=== PATIENT | female | born 1950 | race Caucasian/White ===

== ENCOUNTER 2018-06-09 01:47 | Emergency (ER) | payer BC ==
[2018-06-09 01:56] VITALS: BP 109/77; PULSE 67; O2SAT 96
--- NOTE | 2018-06-09 02:10 | ERPHSYRPT ---
- History of Present Illness Time Seen by Provider: 06/09/18 02:06 Source: patient, police Exam Limitations: no limitations, intoxication Patient Subjective Stated Complaint: pt is alert and oriented. pt is ambulatory with a steady gait. pt comes in with police officers for after being intoxicated. pt states she's being drinking wine tonight. pt has prior lab earlier tonight of 247. pt is speaking clearly. no apparent distress. Triage Nursing Assessment: see above Physician History: 67 y/o myriam female intoxicated appearance here for medical clearance for care home. pt has no complaints Timing/Duration: today Severity: mild Associated Symptoms: denies symptoms Allergies/Adverse Reactions: No Known Drug Allergies Allergy (Unverified 06/09/18 01:56) Home Medications: Alendronate Sodium 70 mg PO DAILY 06/09/18 [History] Amlodipine Besylate 5 mg PO DAILY 06/09/18 [History] Calcium [Hi-Jonny] 600 mg PO DAILY 06/09/18 [History] Levothyroxine Sodium [Synthroid] 25 mcg PO DAILY 06/09/18 [History] Metoprolol Tartrate 50 mg PO DAILY 06/09/18 [History] Naproxen 500 mg PO BID 06/09/18 [History] Omeprazole 20 mg PO DAILY 06/09/18 [History] Immunizations Up to Date: Yes - Review of Systems Constitutional: No Symptoms Eyes: No Symptoms Ears, Nose, & Throat: No Symptoms Respiratory: No Symptoms Cardiac: No Symptoms Abdominal/Gastrointestinal: No Symptoms Genitourinary Symptoms: No Symptoms Musculoskeletal: No Symptoms Skin: No Symptoms Neurological: No Symptoms Psychological: No Symptoms Endocrine: No Symptoms Hematologic/Lymphatic: No Symptoms Immunological/Allergic: No Symptoms All Other Systems: Reviewed and Negative - Past Medical History Pertinent Past Medical History: Yes Neurological History: No Pertinent History ENT History: No Pertinent History Cardiac History: Myocardial Infarction ([place]) Respiratory History: No Pertinent History Endocrine Medical History: No Pertinent History Musculoskeletal History: No Pertinent History GI Medical History: No Pertinent History History: No Pertinent History Psycho-Social History: No Pertinent History Female Reproductive Disorders: No Pertinent History - Past Surgical History Past Surgical History: Yes Neuro Surgical History: No Pertinent History Cardiac: Cardiac Catheterization Respiratory: No Pertinent History Gastrointestinal: Appendectomy, Cholecystectomy Genitourinary: No Pertinent History Musculoskeletal: No Pertinent History Female Surgical History: Hysterectomy Other Surgical History: GIFT - Social History Smoking Status: Current every day smoker How long have you smoked: 40 years Drug Use: none - Female History Hx Now: No - Nursing Vital Signs Nursing Vital Signs: Initial Vital Signs Pulse Rate 67 06/09/18 01:49 Respiratory Rate 18 06/09/18 01:49 Blood Pressure 109/77 06/09/18 01:49 O2 Sat by Pulse Oximetry 96 06/09/18 01:49 Pain Scale Pain Intensity 0 - Physical Exam General Appearance: no apparent distress, alert, other (smells of etoh) Eye Exam: PERRL/EOMI, eyes nml inspection Ears, Nose, Throat Exam: normal ENT inspection, moist mucous membranes Neck Exam: normal inspection, non-tender, supple, full range of motion Respiratory Exam: normal breath sounds, lungs clear, airway intact, No chest tenderness, No respiratory distress Cardiovascular Exam: regular rate/rhythm, normal heart sounds, normal peripheral pulses Gastrointestinal/Abdomen Exam: soft, normal bowel sounds, No tenderness, No guarding, No rebound Pelvic Exam: not done Rectal Exam: not done Back Exam: normal inspection, normal range of motion, No CVA tenderness, No vertebral tenderness Extremity Exam: normal inspection, normal range of motion, pelvis stable Neurologic Exam: alert, oriented x 3, cooperative, on air announcer II-XII nml as tested, intoxicated appearance Skin Exam: normal color, warm, dry Lymphatic Exam: No adenopathy SpO2 Interpretation: normal SpO2: 96 O2 Delivery: Room Air - Progress Progress: unchanged Counseled pt/family regarding: diagnosis - Departure Departure Disposition: Home Clinical Impression: Medical clearance for incarceration Condition: Stable Critical Care Time: No
== END 2018-06-09 02:20 | disposition home or self-care (01) ==
LOC: ED 01:47
DX: Z02.89 Encounter for other administrative examinations (principal); F10.129 Alcohol abuse with intoxication, unspecified
CPT/HCPCS: 36415; 80307; 99283; G0480

== ENCOUNTER 2022-01-03 07:26 | Day surgery (SDC) | payer MEDICARE, OTHER ==
[2022-01-03] MEDS ORDERED: Epinephrine Preservative Free 1 MG/ML IJ ONE (07:27)
[2022-01-03] MEDS ORDERED: BETADINE 5% OPHTHALMIC 30 ML OP ONE (07:30)
[2022-01-03] MEDS ORDERED: cefUROXime sodium 0.005 GM in Sodium Chloride Flush 30 ML*** 0.5 ML IJ ONE (07:30)
[2022-01-03] MEDS ORDERED: Ak-Dilate OPHTHALMIC*** 1.065 ML, Cyclogyl 1% OPHTH SOL 1.065 ML, GATIFLOXACIN 0.5% OPH... OP ONE ×4 (07:30)
[2022-01-03] MEDS ORDERED: TETRACAINE 0.5% STERI-UNIT SOL OP ONE ×2 (07:30)
[2022-01-03] MEDS ORDERED: NON-FORMULARY ITEM OP ONE (07:30)
[2022-01-03] MEDS ORDERED: Lactated Ringers 1,000 ML IV SCH (07:30)
[2022-01-03] MEDS ORDERED: Lactated Ringers 1,000 ML IV ONE (08:04)
[2022-01-03] MEDS ORDERED: DIPRIVAN 200 MG/20 ML IV ONE (09:12)
[2022-01-03] MEDS ORDERED: Zofran 4 MG/2 ML VIAL IV PRN (09:30)
[2022-01-03] MEDS ORDERED: ACETAZOLAMIDE 250 MG TABLET PO ONE (09:30)
[2022-01-03 09:56] VITALS: BP 98/63; PULSE 60; O2SAT 92
== END 2022-01-03 10:05 | disposition home or self-care (01) ==
LOC: SDC 07:26
PROVIDERS: ATTEND Ophthalmology
DX: H25.812 Combined forms of age-related cataract, left eye (principal)
CPT/HCPCS: C1780; J0171; J2704; A9270-GY

== ENCOUNTER 2022-02-07 06:02 | Day surgery (SDC) | payer MEDICARE, OTHER ==
[2022-02-07] MEDS ORDERED: DUONEB 0.5-3 MG/3 ml Neb IH ONE ×2 (06:03→08:58)
[2022-02-07] MEDS ORDERED: Lactated Ringers 1,000 ML IV ONE (06:14)
[2022-02-07] MEDS ORDERED: BETADINE 5% OPHTHALMIC 30 ML OP ONE (07:00)
[2022-02-07] MEDS ORDERED: NON-FORMULARY ITEM OP ONE (07:00)
[2022-02-07] MEDS ORDERED: TETRACAINE 0.5% STERI-UNIT SOL OP ONE ×2 (07:00)
[2022-02-07] MEDS ORDERED: cefUROXime sodium 0.005 GM in Sodium Chloride Flush 30 ML*** 0.5 ML IJ ONE (07:00)
[2022-02-07] MEDS ORDERED: Ak-Dilate OPHTHALMIC*** 1.065 ML, Cyclogyl 1% OPHTH SOL 1.065 ML, GATIFLOXACIN 0.5% OPH... OP ONE ×4 (07:00)
[2022-02-07] MEDS ORDERED: Lactated Ringers 1,000 ML IV SCH (07:00)
[2022-02-07] MEDS ORDERED: DIPRIVAN 200 MG/20 ML IV ONE (07:54)
[2022-02-07] MEDS ORDERED: Versed 2 MG/2 ML Injection ONE (07:54)
[2022-02-07] MEDS ORDERED: SUBLIMAZE 100 MCG/2 ML ONE (07:54)
[2022-02-07] MEDS ORDERED: Xylocaine-Mpf 2% 5 Ml Vial ONE (07:54)
[2022-02-07] MEDS ORDERED: Zofran 4 MG/2 ML VIAL IV PRN (09:00)
[2022-02-07] MEDS ORDERED: ACETAZOLAMIDE 250 MG TABLET PO ONE (09:00)
[2022-02-07 09:23] VITALS: O2SAT 96
[2022-02-07 09:25] VITALS: BP 128/73; PULSE 58
[2022-02-07] MEDS ORDERED: Epinephrine Preservative Free 1 MG/ML ONE (14:36)
== END 2022-02-07 09:25 | disposition home or self-care (01) ==
LOC: SDC 06:02
PROVIDERS: ATTEND Ophthalmology
DX: H25.811 Combined forms of age-related cataract, right eye (principal)
CPT/HCPCS: 94640; C1780; J0171; J2250; J2704; J3010; A9270-GY

== ENCOUNTER 2022-05-22 16:16 | Emergency (ER) | payer MEDICARE, OTHER ==
[2022-05-22] MEDS ORDERED: PROVENTIL 2.5 MG/3 ML NEB IH ONE ×2 (16:31→16:45)
[2022-05-22] MEDS ORDERED: solu-MEDROL 125 MG, Sterile H2O 10 ml 2 ML IV ONE ×2 (17:06)
--- NOTE | 2022-05-22 17:06 | ERPHSYRPT ---
- History of Present Illness Time Seen by Provider: 05/22/22 16:55 Source: patient Exam Limitations: no limitations Physician History: This is a 71-year-old white female patient who has a history of COPD, hypertension, hyperlipidemia who was seen at the outpatient clinic but referred back to us because of the patient's shortness of breath and history of chest pain earlier today. Patient denies chest pain at the time of this examination. Patient does have wheezing upon entrance into the emergency department. She does have a cough but she chronically has a cough. She denies fever. She has not had any vomiting or diarrhea. She has no abdominal pain Timing/Duration: today Severity of Dyspnea-Max: moderate Severity of Dyspnea-Current: moderate Possible Cause: occasional episodes, chronic episodes Modifying Factors: Improves With: activity, coughing Associated Symptoms: cough, chest pain/discomfort (None now but there was chest pain earlier today), wheezing Allergies/Adverse Reactions: cat dander Allergy (Severe, Verified 05/22/22 17:09) Shortness of Breath perfume Adverse Reaction (Intermediate, Verified 05/22/22 17:09) Shortness of Breath Home Medications: Alendronate Sodium 70 mg PO DAILY 06/09/18 [History] Amlodipine Besylate 5 mg PO DAILY 06/09/18 [History] Naproxen 500 mg PO BID 06/09/18 [History] Aspirin EC 81 mg [Ecotrin 81 mg] 81 mg PO DAILY 12/27/21 [History] Atorvastatin Calcium [Lipitor] 10 mg PO DAILY 12/27/21 [History] Famotidine 20 mg [Pepcid 20 MG] 20 mg PO DAILY 12/27/21 [History] Niacin 500 mg PO DAILY 12/27/21 [History] Metoprolol Tartrate 50 mg [Lopressor 50 MG] 50 mg PO BID 01/03/22 [History] Albuterol Sulfate [Proair Respiclick] 90 mcg IH Q4HPRN PRN 01/25/22 [History] Travel Risk - International Travel Have you traveled outside of the country in past 3 weeks: No - Coronavirus Screening Are you exhibiting any of the following symptoms?: Yes Symptoms: Cough: New Onset, Shortness of Breath Close contact with a COVID-19 positive Pt in past 14-21 Days: No - Review of Systems Constitutional: No Symptoms Eyes: No Symptoms Ears, Nose, & Throat: No Symptoms Respiratory: Cough, Dyspnea on Exertion (ARENAS), Wheezing Cardiac: Chest Pain (Earlier today) Abdominal/Gastrointestinal: No Symptoms (. None in the emergency department at this time) Genitourinary Symptoms: No Symptoms Musculoskeletal: No Symptoms Skin: No Symptoms Neurological: No Symptoms Psychological: No Symptoms Endocrine: No Symptoms Hematologic/Lymphatic: No Symptoms Immunological/Allergic: No Symptoms All Other Systems: Reviewed and Negative - Past Medical History Pertinent Past Medical History: Yes Neurological History: No Pertinent History ENT History: No Pertinent History Cardiac History: Arrhythmia, Hypertension Respiratory History: COPD Endocrine Medical History: No Pertinent History Musculoskeletal History: No Pertinent History GI Medical History: No Pertinent History History: No Pertinent History Psycho-Social History: No Pertinent History Female Reproductive Disorders: No Pertinent History - Past Surgical History Past Surgical History: Yes Neuro Surgical History: No Pertinent History Cardiac: Cardiac Catheterization Respiratory: No Pertinent History Gastrointestinal: Appendectomy, Cholecystectomy Genitourinary: No Pertinent History Musculoskeletal: No Pertinent History Female Surgical History: Hysterectomy Other Surgical History: release of 1st dorsal compartment, 3 laproscopy female. - Social History Smoking Status: Current every day smoker How long have you smoked: 50 years Exposure to second hand smoke: Yes Drug Use: none - Nursing Vital Signs Nursing Vital Signs: Initial Vital Signs Pulse Rate 88 05/22/22 16:46 Respiratory Rate 22 05/22/22 16:46 O2 Sat by Pulse Oximetry 99 05/22/22 16:46 Pain Scale Pain Intensity 0 - Physical Exam General Appearance: no apparent distress, alert, anxiety, thin Eye Exam: PERRL/EOMI, eyes nml inspection Ears, Nose, Throat Exam: hearing grossly normal, normal ENT inspection, normal pharynx Neck Exam: normal inspection, non-tender, supple, full range of motion Respiratory Exam: respiratory distress (Mild), airway intact, wheezing (Mild bilateral diffuse wheezing), No chest tenderness Cardiovascular/Chest Exam: normal heart sounds, regular rate/rhythm, normal peripheral pulses Abdominal/Gastrointestinal Exam: soft, normal bowel sounds, No tenderness Rectal Exam: not done Extremity Exam: non-tender, normal range of motion, normal inspection Neurologic Exam: alert, oriented x 3, cooperative, assistant county attorney II-XII nml as tested, normal mood/affect, nml cerebellar function, nml station & gait, sensation nml Skin Exam: normal color, warm, dry Lymphatic Exam: No adenopathy SpO2 Interpretation: normal SpO2: 95 O2 Delivery: Nasal Cannula - Course Nursing assessment & vital signs reviewed: Yes Ordered Tests: Active Orders 24 hr Category Date Time Status EKG-ER Only STAT Care 05/22/22 17:06 Active IV Insertion STAT Care 05/22/22 17:06 Active Pulse Oximetry (ED) STAT Care 05/22/22 17:06 Active CHEST 1 VIEW (PORTABLE) Stat Exams 05/22/22 17:06 Taken BLOOD CULTURE Stat Lab 05/22/22 16:45 Ordered CBC W DIFF Stat Lab 05/22/22 16:45 Completed CMP Stat Lab 05/22/22 17:25 Completed NT PRO BNPII Stat Lab 05/22/22 16:45 Completed TROPONIN Q4H Lab 05/22/22 16:45 Completed TROPONIN Q4H Lab 05/22/22 21:15 Ordered TROPONIN Q4H Lab 05/23/22 01:15 Ordered Respiratory Therapy Assessment DAILY RT 05/22/22 16:46 Completed Medication Summary Discontinued Medications Generic Name Dose Route Start Last Admin Trade Name Freq PRN Reason Stop Dose Admin Albuterol Sulfate Confirm 05/22/22 16:31 Albuterol Sulfate 2.5 Mg/3 Ml Neb Administered 05/22/22 16:32 Dose 2.5 mg IH .STK-MED ONE Albuterol Sulfate 2.5 mg 05/22/22 16:45 05/22/22 16:46 Albuterol Sulfate 2.5 Mg/3 Ml Neb IH 05/22/22 16:46 2.5 mg STAT ONE Administration Methylprednisolone Sodium 0 mg 05/22/22 17:06 05/22/22 17:12 Succinate 125 mg/ Sterile IV 05/22/22 17:07 125 mg Water 2 ml STAT ONE Administration Methylprednisolone Sodium Succinate Confirm 05/22/22 17:09 Methylprednis Sod Succ 125 Mg/2 Ml Vial Administered 05/22/22 17:10 Dose 125 mg .ROUTE .STK-MED ONE Sterile Water Confirm 05/22/22 17:09 Water For Injection,Sterile 10 Ml Vial Administered 05/22/22 17:10 Dose 10 ml IJ .STK-MED ONE Lab/Rad Data: Laboratory Result Diagrams 05/22/22 16:45 05/22/22 17:25 Laboratory Results 0405/22/22 05/22/22 Range/Units Unknown 17:25 16:45 WBC (4.0-10.5) x10^3/uL RBC (4.1-5.4) x10^6/uL Hgb (12.0-16.0) g/dL Hct (35-47) % MCV (78-100) fL MCH (26-32) pg MCHC (32-36) g/dL RDW (11.5-14.0) % Plt Count (150-450) x10^3/uL MPV (7.5-11.0) fL Gran % (36.0-66.0) % Immature Gran % (Auto) (0.00-0.4) % Nucleat RBC Rel Count (0.00-0.1) % Eos # (Auto) (0-0.5) x10^3/uL Immature Gran # (Auto) (0.00-0.03) x10^3u/L Absolute Lymphs (auto) (1.0-4.6) x10^3/uL Absolute Monos (auto) (0.0-1.3) x10^3/uL Absolute Nucleated RBC (0.00-0.01) x10^3u/L Lymphocytes % (24.0-44.0) % Monocytes % (0.0-12.0) % Eosinophils % (0.00-5.0) % Basophils % (0.0-0.4) % Absolute Granulocytes (1.4-6.9) x10^3/uL Basophils # (0-0.4) x10^3/uL Sodium 138 (137-145) mmol/L Potassium 3.8 (3.5-5.1) mmol/L Chloride 102 (98-107) mmol/L Carbon Dioxide 28 (22-30) mmol/L Anion Gap 11.8 (5-15) MEQ/L BUN 18 H (7-17) mg/dL Creatinine 0.60 (0.52-1.04) mg/dL Estimated GFR > 60.0 ML/MIN Glucose 110 H (74-106) mg/dL Calcium 8.7 (8.4-10.2) mg/dL Total Bilirubin 0.60 (0.2-1.3) mg/dL AST 72 H (14-36) U/L ALT 46 H (0-35) U/L Alkaline Phosphatase 270 H (38-126) U/L Troponin I (0.000-0.034) ng/mL NT-Pro-B Natriuret Pep 465 (<300) pg/mL Serum Total Protein 7.3 (6.3-8.2) g/dL Albumin 3.9 (3.5-5.0) g/dL Influenza Type A Ag NEGATIVE (NEGATIVE) Influenza Type B Ag NEGATIVE (NEGATIVE) RSV (PCR) NEGATIVE (NEGATIVE) SARS-CoV-2 (PCR) NEGATIVE (NEGATIVE) 05/22/22 05/22/22 Range/Units 16:45 16:45 WBC 8.3 (4.0-10.5) x10^3/uL RBC 4.10 (4.1-5.4) x10^6/uL Hgb 12.2 (12.0-16.0) g/dL Hct 38.0 (35-47) % MCV 92.7 (78-100) fL MCH 29.8 (26-32) pg MCHC 32.1 (32-36) g/dL RDW 16.0 H (11.5-14.0) % Plt Count 267 (150-450) x10^3/uL MPV 9.4 (7.5-11.0) fL Gran % 80.2 H (36.0-66.0) % Immature Gran % (Auto) 0.4 (0.00-0.4) % Nucleat RBC Rel Count 0.0 (0.00-0.1) % Eos # (Auto) 0.02 (0-0.5) x10^3/uL Immature Gran # (Auto) 0.03 (0.00-0.03) x10^3u/L Absolute Lymphs (auto) 0.90 L (1.0-4.6) x10^3/uL Absolute Monos (auto) 0.67 (0.0-1.3) x10^3/uL Absolute Nucleated RBC 0.00 (0.00-0.01) x10^3u/L Lymphocytes % 10.9 L (24.0-44.0) % Monocytes % 8.1 (0.0-12.0) % Eosinophils % 0.2 (0.00-5.0) % Basophils % 0.2 (0.0-0.4) % Absolute Granulocytes 6.65 (1.4-6.9) x10^3/uL Basophils # 0.02 (0-0.4) x10^3/uL Sodium (137-145) mmol/L Potassium (3.5-5.1) mmol/L Chloride (98-107) mmol/L Carbon Dioxide (22-30) mmol/L Anion Gap (5-15) MEQ/L BUN (7-17) mg/dL Creatinine (0.52-1.04) mg/dL Estimated GFR ML/MIN Glucose (74-106) mg/dL Calcium (8.4-10.2) mg/dL Total Bilirubin (0.2-1.3) mg/dL AST (14-36) U/L ALT (0-35) U/L Alkaline Phosphatase (38-126) U/L Troponin I < 0.012 (0.000-0.034) ng/mL NT-Pro-B Natriuret Pep (<300) pg/mL Serum Total Protein (6.3-8.2) g/dL Albumin (3.5-5.0) g/dL Influenza Type A Ag (NEGATIVE) Influenza Type B Ag (NEGATIVE) RSV (PCR) (NEGATIVE) SARS-CoV-2 (PCR) (NEGATIVE) - Progress Progress: improved, re-examined Air Movement: good Progress Note: 05/22/22 18:04 Chest x-ray was interpreted by me. Patient has chronic changes consistent with emphysema. I do not appreciate an infiltrate. 05/22/22 18:49 This patient medical issue is 1 of moderate complexity. Level of complexity and work-up performed was based on the patient's past medical history, medication allergies, medication list, history present illness and findings on physical examination. Patient is significantly improved since we intervened for her. The work-up included intravenous line placement, nebulizer treatments, twelve- lead EKG, steroid injection, CBC, CMP, troponin and BNP. Also performed a chest x-ray. The results were reviewed by me and discussed with the patient. Patient has acute exacerbation of COPD. She also may have a mild upper respiratory infection. We will discharge her home with instructions to continue her medication as prescribed. We will prescribe prednisone and cefdinir for her. Blood Culture(s) Obtained: Yes Counseled pt/family regarding: lab results, diagnosis, need for follow-up, rad results Medical Desision Making - Discussion of managment Reviewed:: Test results Agreed on:: Treatment plan, need for follow-up - Social Determinants of Health Limited access to: transportation - Diagnostic Testing Diagnostic test were ordered, analyzed, and reviewed by me: Yes Radiological Interpretation: Interpreted by me - Risk of complications The pt has a mod risk of morbidity or mortality based on: Need for prescription drug management - Departure Departure Disposition: Home Clinical Impression: COPD exacerbation, URI (upper respiratory infection) Condition: Stable Critical Care Time: No Referrals: LIZETH CRUZ [Primary Care Provider] - Follow up/PCP as directed Instructions: Chronic Obstructive Pulmonary Disease Additional Instructions: Stop smoking. Take your medication as prescribed. Follow-up with your primary care provider for further evaluation management. Prescriptions: Cefdinir 300 mg PO BID #14 cap Prednisone 10 mg [Deltasone 10 mg] 10 mg PO TID #12 tablet
[2022-05-22] MEDS ORDERED: Sterile H2O 10 ml IJ ONE (17:09)
[2022-05-22] MEDS ORDERED: solu-MEDROL ONE (17:09)
[2022-05-22 17:13] LABS: Absolute Neutrophil Ct (ANC) 6.65 x10^3/uL (1.4-6.9); BASOPHIL % 0.2 % (0.0-0.4); Basophil (Absolute #) 0.02 x10^3/uL (0-0.4); Eosinophil % 0.2 % (0.00-5.0); Eosinophil (Absolute #) 0.02 x10^3/uL (0-0.5); Hemoglobin 12.2 g/dL (12.0-16.0); IMMATURE GRAN # 0.03 x10^3u/L (0.00-0.03); IMMATURE GRAN % 0.4 % (0.00-0.4); Lymphocytes % 10.9 % (24.0-44.0); Mean Cell Volume 92.7 fL (78-100); Mean Corpuscular Hemoglobin 29.8 pg (26-32); Mean Corpuscular Hgb Concent. 32.1 g/dL (32-36); Mean Platelet Volume 9.4 fL (7.5-11.0); Monocyte (Absolute #) 0.67 x10^3/uL (0.0-1.3); Monocytes % 8.1 % (0.0-12.0); Neutrophil % 80.2 % (36.0-66.0); Platelet Count 267 x10^3/uL (150-450); White Blood Count 8.3 x10^3/uL (4.0-10.5)
[2022-05-22 17:53] LABS: ALBUMIN 3.9 g/dL (3.5-5.0); ALKALINE PHOSPHATASE 270 U/L (38-126); ANION GAP 11.8 MEQ/L (5-15); BLOOD UREA NITROGEN 18 mg/dL (7-17); CHLORIDE 102 mmol/L (98-107); Calcium 8.7 mg/dL (8.4-10.2); Carbon Dioxide 28 mmol/L (22-30); EST GLOMERULAR FILTRATION RATE > 60.0 ML/MIN; Glucose 110 mg/dL (74-106); Potassium 3.8 mmol/L (3.5-5.1); SGOT/AST 72 U/L (14-36); SGPT/ALT 46 U/L (0-35); SODIUM 138 mmol/L (137-145); Total Protein 7.3 g/dL (6.3-8.2)
[2022-05-22 18:05] VITALS: O2SAT 95
[2022-05-22 18:22] LABS: INFLUENZA A NEGATIVE (NEGATIVE); INFLUENZA B NEGATIVE (NEGATIVE); RESPIRATORY SYNCTIAL VIRUS NEGATIVE (NEGATIVE); SARS-CoV-2 Xpert Express NEGATIVE (NEGATIVE)
[2022-05-22 19:34] VITALS: BP 130/78; PULSE 82
--- NOTE | 2022-05-23 08:43 | XRAY ---
Indication: Short of breath. Comparison: None Portable chest hyperinflated with small left upper lobe calcified granuloma. No focal infiltrate, consolidation, or large effusion. Heart is not enlarged. Bony thorax intact with osteopenia, mild degenerative changes, and old left 7 rib fracture. Impression: Nonacute hyperinflate chest with chronic features.
== END 2022-05-22 19:34 | disposition home or self-care (01) ==
LOC: ED 16:16
DX: J44.1 Chronic obstructive pulmonary disease with (acute) exacerbation (principal); J06.9 Acute upper respiratory infection, unspecified; R07.9 Chest pain, unspecified; R06.02 Shortness of breath; I10 Essential (primary) hypertension; Z79.52 Long term (current) use of systemic steroids; Z79.899 Other long term (current) drug therapy; Z72.0 Tobacco use; Z59.82 Transportation insecurity; Z20.828 Contact with and (suspected) exposure to other viral communicable diseases
CPT/HCPCS: 0241U; 36000; 36415; 71045; 80053; 83880; 84484; 85025; 87040; 93005; 94640; 94760; 96374; 99284; J2930; J7609; A9270-GY

== ENCOUNTER 2023-03-06 14:15 | Observation (INO) | payer MEDICARE, OTHER ==
[2023-03-06] MEDS ORDERED: DUONEB 0.5-3 MG/3 ml Neb IH ONE ×2 (14:29→14:40)
[2023-03-06] MEDS ORDERED: solu-MEDROL 125 MG, Sterile H2O 10 ml 2 ML IV ONE ×2 (14:51)
[2023-03-06] MEDS ORDERED: ROCEPHIN 2 Gm-D5w 50ML BAG** 2 G/50 ML IVPB IV STA (14:53)
[2023-03-06] MEDS ORDERED: Zithromax 500 MG/ 250 ML NaCl Premix 500 MG/250 ML IVPB IV STA (14:53)
--- NOTE | 2023-03-06 14:56 | ERPHSYRPT ---
- History of Present Illness Time Seen by Provider: 03/06/23 14:30 Source: patient Exam Limitations: no limitations Patient Subjective Stated Complaint: C/O SOB. Patient states she had been waking up around 0300 every morning since with SOB. Triage Nursing Assessment: Patient ambulated back to ER. She is alert and oriented. SOB is noted. Patient with slight wheezes throughout. Weak, dry, non- productive cough. Patient unable to lay flat in bed. 02 sats 86% on room air upon arrival to ER. Patient placed on 02 @ 2L per N/C; sats increased to 95%. RT called. Physician History: Patient is a 72-year-old female history of COPD current smoker presents to our ED for evaluation of progressive shortness of breath and cough. Symptoms started approximately 5 days ago. Symptoms have been progressive. No associate d chest pain no nausea vomiting or diaphoresis. Upon arrival to our ED patient was hypoxic with an O2 sat on room air of 86%. Patient was placed on 2 L. O2 sat at rest is 95%. Symptoms are moderate in intensity. Symptoms are worse with exertion. Patient voices no other complaints or concerns at this time. Portions of this note were created with voice recognition technology. There may be grammatical, spelling, punctuation or sound alike errors Timing/Duration: today, day(s) Activities at Onset: activity Severity of Dyspnea-Max: moderate Severity of Dyspnea-Current: mild Possible Cause: occasional episodes Modifying Factors: Improves With: activity Associated Symptoms: cough Allergies/Adverse Reactions: cat dander Allergy (Severe, Verified 03/06/23 14:17) Shortness of Breath perfume Adverse Reaction (Intermediate, Verified 03/06/23 14:17) Shortness of Breath Home Medications: Alendronate Sodium 70 mg PO WEEKLY 06/09/18 [History] Amlodipine Besylate 5 mg PO DAILY 06/09/18 [History] Aspirin EC 81 mg [Ecotrin 81 mg] 81 mg PO DAILY 12/27/21 [History] Atorvastatin Calcium [Lipitor] 10 mg PO DAILY 12/27/21 [History] Famotidine 20 mg [Pepcid 20 MG] 20 mg PO DAILY 12/27/21 [History] Niacin 500 mg PO DAILY 12/27/21 [History] Metoprolol Tartrate 50 mg [Lopressor 50 MG] 50 mg PO BID 01/03/22 [History] Albuterol Sulfate 1 neb IH QID 03/06/23 [History] Hx Tetanus, Diphtheria Vaccination/Date Given: Yes Hx Influenza Vaccination/Date Given: Yes Hx Pneumococcal Vaccination/Date Given: Yes Immunizations Up to Date: Yes Travel Risk - International Travel Have you traveled outside of the country in past 3 weeks: No - Coronavirus Screening Are you exhibiting any of the following symptoms?: Yes Symptoms: Cough: New Onset, Shortness of Breath Close contact with a COVID-19 positive Pt in past 14-21 Days: No - Vaccine Status Have you recieved a Covid-19 vaccination: Yes Hims Manager: Unknown - Vaccination Dates Date of 2cond Vaccination (if applicable): 2020 Dates if Unknown: ? - Review of Systems Constitutional: No Symptoms, No Fever, No Chills Eyes: No Symptoms Ears, Nose, & Throat: No Symptoms Respiratory: No Symptoms, No Cough, No Dyspnea Cardiac: No Symptoms, No Chest Pain, No Edema, No Syncope Abdominal/Gastrointestinal: No Symptoms, No Abdominal Pain, No Nausea, No V omiting, No Diarrhea Genitourinary Symptoms: No Symptoms, No Dysuria Musculoskeletal: No Symptoms, No Back Pain, No Neck Pain Skin: No Symptoms, No Rash Neurological: No Symptoms, No Dizziness, No Focal Weakness, No Sensory Changes Psychological: No Symptoms Endocrine: No Symptoms Hematologic/Lymphatic: No Symptoms Immunological/Allergic: No Symptoms All Other Systems: Reviewed and Negative - Past Medical History Pertinent Past Medical History: Yes Neurological History: No Pertinent History ENT History: No Pertinent History Cardiac History: Arrhythmia, Hypertension Respiratory History: COPD Endocrine Medical History: No Pertinent History Musculoskeletal History: No Pertinent History GI Medical History: Gallbladder Disease History: No Pertinent History Psycho-Social History: No Pertinent History Female Reproductive Disorders: No Pertinent History - Past Surgical History Past Surgical History: Yes Neuro Surgical History: No Pertinent History Cardiac: Cardiac Catheterization Respiratory: No Pertinent History Gastrointestinal: Appendectomy, Cholecystectomy Genitourinary: No Pertinent History Musculoskeletal: No Pertinent History Female Surgical History: Hysterectomy Other Surgical History: release of 1st dorsal compartment, 3 laproscopy female. - Social History Smoking Status: Current every day smoker How long have you smoked: 50 years Exposure to second hand smoke: Yes Drug Use: none Patient Lives Alone: Yes - Nursing Vital Signs Nursing Vital Signs: Initial Vital Signs Temperature 97.7 F 03/06/23 14:18 Pulse Rate 72 03/06/23 14:18 Respiratory Rate 31 H 03/06/23 14:18 Blood Pressure 130/66 03/06/23 14:18 O2 Sat by Pulse Oximetry 95 03/06/23 14:18 Pain Scale Pain Intensity 0 - Physical Exam General Appearance: no apparent distress, alert Eye Exam: PERRL/EOMI, eyes nml inspection Ears, Nose, Throat Exam: hearing grossly normal, normal ENT inspection, normal pharynx Neck Exam: normal inspection, supple, full range of motion Respiratory Exam: diminished breath sounds, rhonchi, wheezing Cardiovascular/Chest Exam: normal heart sounds, regular rate/rhythm Abdominal/Gastrointestinal Exam: soft, No tenderness, No distention, No mass Extremity Exam: non-tender, normal range of motion, normal inspection, no calf tenderness, no pedal edema Neurologic Exam: alert, oriented x 3, cooperative, bobbin fixer II-XII nml as tested, sensation nml, No motor deficits Skin Exam: normal color, warm, No dry Lymphatic Exam: No adenopathy SpO2 Interpretation: normal SpO2: 97 O2 Delivery: Room Air - Course Nursing assessment & vital signs reviewed: Yes EKG Interpreted by Me: RATE (67), Sinus Rhythm, NORMAL AXIS, NORMAL INTERVALS - Radiology Exams Chest X-ray Interpretation: Interpreted by me (Hyperinflated lungs no acute findings) Ordered Tests: Active Orders 24 hr Category Date Time 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 Care 03/06/23 14:52 Active EKG-ER Only STAT Care 03/06/23 14:51 Active IV Insertion STAT Care 03/06/23 14:51 Active Pulse Oximetry (ED) STAT Care 03/06/23 14:51 Active CHEST 1 VIEW (PORTABLE) Stat Exams 03/06/23 16:09 Taken BLOOD CULTURE Stat Lab 03/06/23 15:25 Received CBC W DIFF Stat Lab 03/06/23 14:51 Completed CMP Stat Lab 03/06/23 15:10 Completed D-DIMER QUANTITATIVE Stat Lab 03/06/23 15:10 Completed MAGNESIUM Stat Lab 03/06/23 15:10 Completed NT PRO BNPII Stat Lab 03/06/23 15:10 Completed TROPONIN Q4H Lab 03/06/23 15:10 Completed TROPONIN Q4H Lab 03/06/23 19:00 Ordered TROPONIN Q4H Lab 03/06/23 23:00 Ordered UA W/RFX UR CULTURE Stat Lab 03/06/23 14:52 Ordered Respiratory Therapy Assessment DAILY RT 03/06/23 14:43 Active Transfer Order Routine Transfer 03/06/23 Ordered Medication Summary Discontinued Medications Generic Name Dose Route Start Last Admin Trade Name Josie PRN Reason Stop Dose Admin Albuterol/Ipratropium Confirm 03/06/23 14:29 Ipratropium/Albuterol Sulfate 3 Ml Ampul.Neb Administered 03/06/23 14:30 Dose 3 ml IH .STK-MED ONE Albuterol/Ipratropium 3 ml 03/06/23 14:40 03/06/23 14:41 Ipratropium/Albuterol Sulfate 3 Ml Ampul.Neb IH 03/06/23 14:41 3 ml STAT ONE Administration Methylprednisolone Sodium 0 mg 03/06/23 14:51 03/06/23 15:33 Succinate 125 mg/ Sterile IV 03/06/23 14:52 125 mg Water 2 ml STAT ONE Administration Ceftriaxone Sodium/Dextrose 2 g in 50 mls @ 100 mls/hr 03/06/23 14:53 03/06/23 16:06 Rocephin 2 Gm-D5w 50ml Bag IV 03/06/23 15:22 Infused STAT STA Infusion Azithromycin 500 mg in 250 mls @ 250 mls/hr 03/06/23 14:53 03/06/23 16:06 Zithromax 500 Mg/ 250 Ml Nacl Premix IV 03/06/23 15:52 250 mls/hr STAT STA 250 mls/hr Administration Ceftriaxone Sodium/Dextrose Confirm 03/06/23 15:32 Rocephin 2 Gm-D5w 50ml Bag Administered 03/06/23 15:33 Dose 2 g in 50 mls @ ud IV .STK-MED ONE Azithromycin Confirm 03/06/23 16:02 Zithromax 500 Mg/ 250 Ml Nacl Premix Administered 03/06/23 16:03 Dose 500 mg in 250 mls @ ud IV .STK-MED ONE Methylprednisolone Sodium Succinate Confirm 03/06/23 15:32 Methylprednis Sod Succ 125 Mg/2 Ml Vial Administered 03/06/23 15:33 Dose 125 mg .ROUTE .STK-MED ONE Sterile Water Confirm 03/06/23 15:32 Water For Injection,Sterile 10 Ml Vial Administered 03/06/23 15:33 Dose 10 ml IJ .K-MED ONE Lab/Rad Data: Laboratory Result Diagrams 03/06/23 14:51 03/06/23 15:10 Laboratory Results 03/06/23 03/06/23 03/06/23 Range/Units 15:30 15:10 15:10 WBC (4.0-10.5) x10^3/uL RBC (4.1-5.4) x10^6/uL Hgb (12.0-16.0) g/dL Hct (35-47) % MCV (78-100) fL MCH (26-32) pg MCHC (32-36) g/dL RDW (11.5-14.0) % Plt Count (150-450) x10^3/uL MPV (7.5-11.0) fL Gran % (36.0-66.0) % Immature Gran % (Auto) (0.00-0.4) % Nucleat RBC Rel Count (0.00-0.1) % Eos # (Auto) (0-0.5) x10^3/uL Immature Gran # (Auto) (0.00-0.03) x10^3u/L Absolute Lymphs (auto) (1.0-4.6) x10^3/uL Absolute Monos (auto) (0.0-1.3) x10^3/uL Absolute Nucleated RBC (0.00-0.01) x10^3u/L Lymphocytes % (24.0-44.0) % Monocytes % (0.0-12.0) % Eosinophils % (0.00-5.0) % Basophils % (0.0-0.4) % Absolute Granulocytes (1.4-6.9) x10^3/uL Basophils # (0-0.4) x10^3/uL D-Dimer 0.37 (0.0-0.50) mg/L Sodium (137-145) mmol/L Potassium (3.5-5.1) mmol/L Chloride (98-107) mmol/L Carbon Dioxide (22-30) mmol/L Anion Gap (5-15) MEQ/L BUN (7-17) mg/dL Creatinine (0.52-1.04) mg/dL Estimated GFR ML/MIN Glucose (74-106) mg/dL Calcium (8.4-10.2) mg/dL Magnesium (1.6-2.3) mg/dL Total Bilirubin (0.2-1.3) mg/dL AST (14-36) U/L ALT (0-35) U/L Alkaline Phosphatase (38-126) U/L Troponin I < 0.012 (0.000-0.034) ng/mL NT-Pro-B Natriuret Pep (<300) pg/mL Serum Total Protein (6.3-8.2) g/dL Albumin (3.5-5.0) g/dL Influenza Type A Ag NEGATIVE (NEGATIVE) Influenza Type B Ag NEGATIVE (NEGATIVE) RSV (PCR) NEGATIVE (NEGATIVE) SARS-CoV-2 (PCR) NEGATIVE (NEGATIVE) 03/06/23 03/06/23 Range/Units 15:10 14:51 WBC 6.0 (4.0-10.5) x10^3/uL RBC 3.96 L (4.1-5.4) x10^6/uL Hgb 12.5 (12.0-16.0) g/dL Hct 38.2 (35-47) % MCV 96.5 (78-100) fL MCH 31.6 (26-32) pg MCHC 32.7 (32-36) g/dL RDW 14.4 H (11.5-14.0) % Plt Count 358 (150-450) x10^3/uL MPV 9.2 (7.5-11.0) fL Gran % 66.5 H (36.0-66.0) % Immature Gran % (Auto) 0.3 (0.00-0.4) % Nucleat RBC Rel Count 0.0 (0.00-0.1) % Eos # (Auto) 0.42 (0-0.5) x10^3/uL Immature Gran # (Auto) 0.02 (0.00-0.03) x10^3u/L Absolute Lymphs (auto) 0.87 L (1.0-4.6) x10^3/uL Absolute Monos (auto) 0.63 (0.0-1.3) x10^3/uL Absolute Nucleated RBC 0.00 (0.00-0.01) x10^3u/L Lymphocytes % 14.6 L (24.0-44.0) % Monocytes % 10.6 (0.0-12.0) % Eosinophils % 7.0 H (0.00-5.0) % Basophils % 1.0 (0.0-0.4) % Absolute Granulocytes 3.96 (1.4-6.9) x10^3/uL Basophils # 0.06 (0-0.4) x10^3/uL D-Dimer (0.0-0.50) mg/L Sodium 134 L (137-145) mmol/L Potassium 3.8 (3.5-5.1) mmol/L Chloride 99 (98-107) mmol/L Carbon Dioxide 29 (22-30) mmol/L Anion Gap 10.1 (5-15) MEQ/L BUN 21 H (7-17) mg/dL Creatinine 0.86 (0.52-1.04) mg/dL Estimated GFR 72.6 ML/MIN Glucose 139 H (74-106) mg/dL Calcium 9.7 (8.4-10.2) mg/dL Magnesium 1.6 (1.6-2.3) mg/dL Total Bilirubin 0.70 (0.2-1.3) mg/dL AST 30 (14-36) U/L ALT 19 (0-35) U/L Alkaline Phosphatase 95 (38-126) U/L Troponin I (0.000-0.034) ng/mL NT-Pro-B Natriuret Pep 231 (<300) pg/mL Serum Total Protein 7.7 (6.3-8.2) g/dL Albumin 4.3 (3.5-5.0) g/dL Influenza Type A Ag (NEGATIVE) Influenza Type B Ag (NEGATIVE) RSV (PCR) (NEGATIVE) SARS-CoV-2 (PCR) (NEGATIVE) - Progress Progress: improved Air Movement: good Progress Note: Case discussed with Dr. Junior at 4:[address] Junior accepts admission 03/06/23 16:23 Patient 72-year-old female presents the emergency department for evaluation of shortness of breath. Patient has a history of COPD she is a current smoker. Physical exam reveals diminished coarse breath sounds with scattered wheezes. Patient was hypoxic upon arrival to our ED. CBC CMP nonremarkable. COVID flu RSV negative. D-dimer negative. Magnesium within normal range. BNP within normal range. Initial troponin negative. Patient received a DuoNeb Solu-Medrol and antibiotic therapy in our ED. Patient received 2 g Rocephin and 500 of azithromycin. Patient reassessed. Lungs have cleared somewhat however not back to baseline. Patient still on 2 L nasal cannula. Plan of care discussed with patient. Patient agrees to admission at [facility] for further evaluation and treatment. Portions of this note were created with voice recognition technology. There may be grammatical, spelling, punctuation or sound alike errors Complexity problem addressed is high, severe exacerbation with threat to bodily function as patient presented with a severe COPD exacerbation and hypoxia to 86% on room air Critical care time is 1 hour. Patient presented to our ED in respiratory distress hypoxic at 86% on room air. Oxygen via nasal cannula was immediately applied. Oxygen saturation increased to 95% on 2 L. Oxygen was followed by a DuoNeb treatment which improved patient's symptomology. Complex of data reviewed and analyzed is extensive. Test ordered test reviewed. Results analyzed and correlated clinically with history and physical examination. Management discussed with hospitalist who accepts admission to observation Risk of complication and or risk of morbidity/mortality of patient management is high. Patient requires hospitalization for further evaluation and treatment. Nebulizer treatment administered. Plan of care discussed with patient. She agrees to admission at [facility] for further evaluation and treatment. Time spent to admit patient is approximately 20 minutes. Plan of care established for shared decision making. Portions of this note were created with voice recognition technology. There may be grammatical, spelling, punctuation or sound alike error 03/06/23 16:26 Blood Culture(s) Obtained: Yes Antibiotics given: Yes Counseled pt/family regarding: lab results, diagnosis, rad results - Departure Departure Disposition: Observation Clinical Impression: Shortness of breath, Hypoxia, COPD exacerbation Condition: Stable Critical Care Time: No Referrals: LIZETH CRUZ [Primary Care Provider] - Follow up/PCP as directed Instructions: Chronic Obstructive Pulmonary Disease
[2023-03-06] MEDS ORDERED: solu-MEDROL ONE (15:32)
[2023-03-06] MEDS ORDERED: ROCEPHIN 2 Gm-D5w 50ML BAG** 2 G/50 ML IVPB IV ONE (15:32)
[2023-03-06] MEDS ORDERED: Sterile H2O 10 ml IJ ONE (15:32)
[2023-03-06 15:38] LABS: Absolute Neutrophil Ct (ANC) 3.96 x10^3/uL (1.4-6.9); Basophil (Absolute #) 0.06 x10^3/uL (0-0.4); Eosinophil (Absolute #) 0.42 x10^3/uL (0-0.5); Hematocrit 38.2 % (35-47); Hemoglobin 12.5 g/dL (12.0-16.0); IMMATURE GRAN # 0.02 x10^3u/L (0.00-0.03); IMMATURE GRAN % 0.3 % (0.00-0.4); Lymphocyte (Absolute #) 0.87 x10^3/uL (1.0-4.6); Lymphocytes % 14.6 % (24.0-44.0); Mean Cell Volume 96.5 fL (78-100); Mean Corpuscular Hemoglobin 31.6 pg (26-32); Mean Corpuscular Hgb Concent. 32.7 g/dL (32-36); Mean Platelet Volume 9.2 fL (7.5-11.0); Monocyte (Absolute #) 0.63 x10^3/uL (0.0-1.3); Monocytes % 10.6 % (0.0-12.0); Neutrophil % 66.5 % (36.0-66.0); Platelet Count 358 x10^3/uL (150-450); Red Blood Count 3.96 x10^6/uL (4.1-5.4); Red Cell Distribution Width 14.4 % (11.5-14.0)
[2023-03-06 16:01] LABS: ALBUMIN 4.3 g/dL (3.5-5.0); ANION GAP 10.1 MEQ/L (5-15); BILIRUBIN,TOTAL 0.7 mg/dL (0.2-1.3); Calcium 9.7 mg/dL (8.4-10.2); Creatinine 1 0.86 mg/dL (0.52-1.04); EST GLOMERULAR FILTRATION RATE 72.6 ML/MIN; MAGNESIUM 1.6 mg/dL (1.6-2.3); Potassium 3.8 mmol/L (3.5-5.1); Total Protein 7.7 g/dL (6.3-8.2)
[2023-03-06] MEDS ORDERED: Zithromax 500 MG/ 250 ML NaCl Premix 500 MG/250 ML IVPB IV ONE (16:02)
[2023-03-06 16:13] LABS: INFLUENZA A NEGATIVE (NEGATIVE); INFLUENZA B NEGATIVE (NEGATIVE); RESPIRATORY SYNCTIAL VIRUS NEGATIVE (NEGATIVE); SARS-CoV-2 Xpert Express NEGATIVE (NEGATIVE)
--- NOTE | 2023-03-06 16:42 | XRAY ---
Indication: Short of breath. Comparison: May 22, 2022 Portable chest again hyperinflated and clear. Heart not enlarged. Bony thorax intact again with osteopenia and mild degenerative changes. No new/acute findings.
--- NOTE | 2023-03-06 17:16 | PCM.HP ---
History of Present Illness - Chief Complaint Chief Complaint: COPD exacerbation, hypoxia Date: 03/06/23 History of Present Illness: is a 72 year old female with PMHX of daily smoker, COPD, mixed hyperlipidemia, arrythmia, HTN, GERD, and osteoporosis. Pt presented to our ED for evaluation of progressive shortness of breath and cough. Symptoms started approximately 5 days ago. Symptoms have been progressive. No associated chest pain no nausea vomiting or diaphoresis. Upon arrival to our ED patient was hypoxic with an O2 sat on room air of 86%. Patient was placed on 2 L. O2 sat at rest is 95%. Symptoms are moderate in intensity. Symptoms are worse with exertion. She was started on steriods, antibiotics and breathing tx in ER. Will continue this treatment plan. She reports she is now feeling much better. Baseline is room air. She continues to have some wheezing, and currently on 2LNC. CXR was negative. Most likely we will keep her overnight and d/c tomorrow. She denies any further concerns at this time. - Review of Systems Constitutional: No Fever, No Chills Eyes: No Symptoms Ears, Nose, & Throat: No Symptoms Respiratory: Cough, Wheezing, No Short Of Breath Cardiac: No Chest Pain, No Edema, No Syncope Abdominal/Gastrointestinal: No Abdominal Pain, No Nausea, No Vomiting, No Diarrhea Genitourinary Symptoms: No Dysuria Musculoskeletal: No Back Pain, No Neck Pain Skin: No Rash Neurological: No Dizziness, No Focal Weakness, No Sensory Changes Psychological: No Symptoms Endocrine: No Symptoms Hematologic/Lymphatic: No Symptoms Immunological/Allergic: No Symptoms Medications & Allergies Home Medications: Home Medication List Alendronate Sodium 70 mg PO WEEKLY 06/09/18 [History Confirmed 03/06/23] Amlodipine Besylate 5 mg PO DAILY 06/09/18 [History Confirmed 03/06/23] Aspirin EC 81 mg [Ecotrin 81 mg] 81 mg PO DAILY 12/27/21 [History Confirmed 03/06/23] Atorvastatin Calcium [Lipitor] 10 mg PO DAILY 12/27/21 [History Confirmed 03/06/23] Famotidine 20 mg [Pepcid 20 MG] 20 mg PO DAILY 12/27/21 [History Confirmed 03/06/23] Niacin 500 mg PO DAILY 12/27/21 [History Confirmed 03/06/23] Metoprolol Tartrate 50 mg [Lopressor 50 MG] 50 mg PO BID 01/03/22 [History Confirmed 03/06/23] Albuterol Sulfate 1 neb IH QID 03/06/23 [History Confirmed 03/06/23] Calcium Carbonate [Calcium] 600 mg PO DAILY 03/06/23 [History Confirmed 03/06/23] Cholecalciferol (Vitamin D3) [Vitamin D3] 125 mcg PO DAILY 03/06/23 [History Confirmed 03/06/23] Cyanocobalamin (Vitamin B-12) [Vitamin B12] 1,000 mcg PO DAILY 03/06/23 [History Confirmed 03/06/23] Allergies/Adverse Reactions: Allergies Allergy/AdvReac Type Severity Reaction Status Date / Time cat dander Allergy Severe Shortness Verified 03/06/23 14:17 of Breath perfume AdvReac Intermediate Shortness Verified 03/06/23 14:17 of Breath - Past Medical History Past Medical History: Yes Neurological History: No Pertinent History ENT History: No Pertinent History Cardiac History: Arrhythmia, Hypertension Respiratory History: COPD Endocrine Medical History: No Pertinent History Musculoskelatal History: No Pertinent History GI Medical History: Gallbladder Disease History: No Pertinent History Pyscho-Social History: No Pertinent History Reproductive Disorders: No Pertinent History - Past Surgical History Past Surgical History: Yes Neuro Surgical History: No Pertinent History Cardiac History: Cardiac Catheterization Respiratory Surgery: No Pertinent History GI Surgical History: Appendectomy, Cholecystectomy Genitourinary Surgical Hx: No Pertinent History Musculskeletal Surgical Hx: No Pertinent History Female Surgical History: Hysterectomy Other Surgical History: release of 1st dorsal compartment, 3 laproscopy female. - Social History Smoking Status: Current every day smoker How long have you smoked: 50 years Exposure to second hand smoke: Yes Alcohol: Occasionally Drug Use: none - Physical Exam Vital Signs: Vital Signs - 24 hr Temp Pulse Resp BP BP Pulse Ox 03/06/23 16:35 97 03/06/23 16:30 120/76 03/06/23 16:00 69 20 115/64 97 03/06/23 15:30 80 23 122/70 97 03/06/23 15:00 66 17 122/82 99 03/06/23 14:51 94 L 03/06/23 14:43 74 30 H 97 03/06/23 14:30 70 20 128/80 98 03/06/23 14:18 97.7 F 72 31 H 130/66 95 General Appearance: no apparent distress, alert Neurologic Exam: alert, oriented x 3, cooperative, normal mood/affect, nml cerebellar function, nml station & gait, sensation nml, No motor deficits Eye Exam: PERRL/EOMI, eyes nml inspection Ears, Nose, Throat Exam: normal ENT inspection, TMs normal, pharynx normal, moist mucous membranes Neck Exam: normal inspection, non-tender, supple, full range of motion Respiratory Exam: wheezing, No respiratory distress Cardiovascular Exam: regular rate/rhythm, normal heart sounds, normal peripheral pulses Gastrointestinal/Abdomen Exam: soft, normal bowel sounds, No tenderness, No mass Back Exam: normal inspection, normal range of motion, No CVA tenderness, No vertebral tenderness Extremity Exam: normal inspection, normal range of motion, pelvis stable Skin Exam: normal color, warm, dry, No rash Lymphatic Exam: No adenopathy Results - Labs Lab/Micro Results: Lab Results-Last 24 Hours 03/06/23 03/06/23 03/06/23 Range/Units 14:51 15:10 15:10 WBC 6.0 (4.0-10.5) x10^3/uL RBC 3.96 L (4.1-5.4) x10^6/uL Hgb 12.5 (12.0-16.0) g/dL Hct 38.2 (35-47) % MCV 96.5 (78-100) fL MCH 31.6 (26-32) pg MCHC 32.7 (32-36) g/dL RDW 14.4 H (11.5-14.0) % Plt Count 358 (150-450) x10^3/uL MPV 9.2 (7.5-11.0) fL Gran % 66.5 H (36.0-66.0) % Immature Gran % (Auto) 0.3 (0.00-0.4) % Nucleat RBC Rel Count 0.0 (0.00-0.1) % Eos # (Auto) 0.42 (0-0.5) x10^3/uL Immature Gran # (Auto) 0.02 (0.00-0.03) x10^3u/L Absolute Lymphs (auto) 0.87 L (1.0-4.6) x10^3/uL Absolute Monos (auto) 0.63 (0.0-1.3) x10^3/uL Absolute Nucleated RBC 0.00 (0.00-0.01) x10^3u/L Lymphocytes % 14.6 L (24.0-44.0) % Monocytes % 10.6 (0.0-12.0) % Eosinophils % 7.0 H (0.00-5.0) % Basophils % 1.0 (0.0-0.4) % Absolute Granulocytes 3.96 (1.4-6.9) x10^3/uL Basophils # 0.06 (0-0.4) x10^3/uL D-Dimer 0.37 (0.0-0.50) mg/L Sodium 134 L (137-145) mmol/L Potassium 3.8 (3.5-5.1) mmol/L Chloride 99 (98-107) mmol/L Carbon Dioxide 29 (22-30) mmol/L Anion Gap 10.1 (5-15) MEQ/L BUN 21 H (7-17) mg/dL Creatinine 0.86 (0.52-1.04) mg/dL Estimated GFR 72.6 ML/MIN Glucose 139 H (74-106) mg/dL Calcium 9.7 (8.4-10.2) mg/dL Magnesium 1.6 (1.6-2.3) mg/dL Total Bilirubin 0.70 (0.2-1.3) mg/dL AST 30 (14-36) U/L ALT 19 (0-35) U/L Alkaline Phosphatase 95 (38-126) U/L Troponin I (0.000-0.034) ng/mL NT-Pro-B Natriuret Pep 231 (<300) pg/mL Serum Total Protein 7.7 (6.3-8.2) g/dL Albumin 4.3 (3.5-5.0) g/dL Influenza Type A Ag (NEGATIVE) Influenza Type B Ag (NEGATIVE) RSV (PCR) (NEGATIVE) SARS-CoV-2 (PCR) (NEGATIVE) 03/06/23 03/06/23 Range/Units 15:10 15:30 WBC (4.0-10.5) x10^3/uL RBC (4.1-5.4) x10^6/uL Hgb (12.0-16.0) g/dL Hct (35-47) % MCV (78-100) fL MCH (26-32) pg MCHC (32-36) g/dL RDW (11.5-14.0) % Plt Count (150-450) x10^3/uL MPV (7.5-11.0) fL Gran % (36.0-66.0) % Immature Gran % (Auto) (0.00-0.4) % Nucleat RBC Rel Count (0.00-0.1) % Eos # (Auto) (0-0.5) x10^3/uL Immature Gran # (Auto) (0.00-0.03) x10^3u/L Absolute Lymphs (auto) (1.0-4.6) x10^3/uL Absolute Monos (auto) (0.0-1.3) x10^3/uL Absolute Nucleated RBC (0.00-0.01) x10^3u/L Lymphocytes % (24.0-44.0) % Monocytes % (0.0-12.0) % Eosinophils % (0.00-5.0) % Basophils % (0.0-0.4) % Absolute Granulocytes (1.4-6.9) x10^3/uL Basophils # (0-0.4) x10^3/uL D-Dimer (0.0-0.50) mg/L Sodium (137-145) mmol/L Potassium (3.5-5.1) mmol/L Chloride (98-107) mmol/L Carbon Dioxide (22-30) mmol/L Anion Gap (5-15) MEQ/L BUN (7-17) mg/dL Creatinine (0.52-1.04) mg/dL Estimated GFR ML/MIN Glucose (74-106) mg/dL Calcium (8.4-10.2) mg/dL Magnesium (1.6-2.3) mg/dL Total Bilirubin (0.2-1.3) mg/dL AST (14-36) U/L ALT (0-35) U/L Alkaline Phosphatase (38-126) U/L Troponin I < 0.012 (0.000-0.034) ng/mL NT-Pro-B Natriuret Pep (<300) pg/mL Serum Total Protein (6.3-8.2) g/dL Albumin (3.5-5.0) g/dL Influenza Type A Ag NEGATIVE (NEGATIVE) Influenza Type B Ag NEGATIVE (NEGATIVE) RSV (PCR) NEGATIVE (NEGATIVE) SARS-CoV-2 (PCR) NEGATIVE (NEGATIVE) - Radiology Impressions Radiology Exams & Impressions: Radiology Procedures Category Date Time Status CHEST 1 VIEW (PORTABLE) Stat Exams 03/06/23 16:09 Completed - Other Procedures and Tests Respiratory Therapy 03/06/23 16:52 Oxygen Nasal Cannula 2 lpm Assessment/Plan (1) COPD exacerbation Current Visit: Yes Status: Acute Assessment & Plan: - Chest XR 03/06/23 Portable chest again hyperinflated and clear. Heart not enlarged. Bony thorax intact again with osteopenia and mild degenerative changes. No new/acute findings. - Ceftriaxone daily - prednisone 40mg daily - Dugus - Jeffair - 2LNC- Baseline RA - RSV/ Flu/ COVID - negative - tele Code(s): J44.1 - CHRONIC OBSTRUCTIVE PULMONARY DISEASE W (ACUTE) EXACERBATION (2) Hyperlipidemia Current Visit: Yes Status: Acute Assessment & Plan: - Continue statin Code(s): E78.5 - HYPERLIPIDEMIA, UNSPECIFIED (3) Smoker Current Visit: Yes Status: Acute Assessment & Plan: - advised cessation - nicotine patch Code(s): F17.200 - NICOTINE DEPENDENCE, UNSPECIFIED, UNCOMPLICATED (4) GERD (gastroesophageal reflux disease) Current Visit: Yes Status: Acute Assessment & Plan: - Continue pepcid VTE: lovenox PPI: pepcid Next of KIN: Shruthi Avilez [phone] Code status: Full Code(s): K21.9 - GASTRO-ESOPHAGEAL REFLUX DISEASE WITHOUT ESOPHAGITIS
[2023-03-06] MEDS: Nicoderm CQ 21 MG TOP SCH (17:55)
[2023-03-06 17:59] LABS: Appearance Clear (Clear); Bacteria None Seen /HPF (None Seen); Bilirubin Negative (Negative); Blood Negative (Negative); Epithelial Cells None Seen /HPF (None Seen); Glucose, Urine Negative (Negative); Hyaline Casts NONE SEEN /LPF (0-2); Ketones Trace (Negative); Leukocyte Esterase Negative (Negative); Nitrite Negative (Negative); Ph 5.5 (4.6-8.0); Protein,Urine Dip Negative (Negative); RBC 0-2 /HPF (0-5); WBC 0-2 /HPF (0-5)
[2023-03-06 18:00] LABS: ADD URINE CULTURE? NO (NO)
[2023-03-06] MEDS: Advair Hfa 230/21 Mcg COMMON CANISTER IH SCH (18:40)
[2023-03-06] MEDS: DUONEB 0.5-3 MG/3 ml Neb IH SCH (18:40)
[2023-03-06] MEDS: DELTASONE 20 MG PO SCH (21:37)
[2023-03-06] MEDS: Lopressor 50 MG PO SCH (21:37)
[2023-03-06] MEDS ORDERED: PROVENTIL 2.5 MG/3 ML NEB IH SCH (22:00)
[2023-03-07] MEDS: DUONEB 0.5-3 MG/3 ml Neb IH SCH ×2 (00:36→06:19)
[2023-03-07] MEDS: Advair Hfa 230/21 Mcg COMMON CANISTER IH SCH (06:20)
[2023-03-07] MEDS ORDERED: MEDICATION INTERVENTION MC SCH (07:00)
[2023-03-07 07:17] VITALS: TEMP 98.5
[2023-03-07 07:57] LABS: Hematocrit 37.3 % (35-47); Hemoglobin 11.9 g/dL (12.0-16.0); Mean Cell Volume 98.4 fL (78-100); Mean Corpuscular Hemoglobin 31.4 pg (26-32); Mean Corpuscular Hgb Concent. 31.9 g/dL (32-36); Mean Platelet Volume 9.1 fL (7.5-11.0); Platelet Count 287 x10^3/uL (150-450); Red Blood Count 3.79 x10^6/uL (4.1-5.4); Red Cell Distribution Width 14.4 % (11.5-14.0); White Blood Count 4.5 x10^3/uL (4.0-10.5)
[2023-03-07 08:22] LABS: ALBUMIN 3.9 g/dL (3.5-5.0); ANION GAP 8.7 MEQ/L (5-15); BILIRUBIN,TOTAL 0.4 mg/dL (0.2-1.3); Calcium 9.2 mg/dL (8.4-10.2); Creatinine 1 0.72 mg/dL (0.52-1.04); EST GLOMERULAR FILTRATION RATE 89.9 ML/MIN; Total Protein 6.7 g/dL (6.3-8.2)
--- NOTE | 2023-03-07 09:20 | PCM.DS ---
Discharge Summary Date of Admission: 03/06/23 16:35 Date of Discharge: 03/07/23 Admitting Physician: SAURAV ROACH MD Primary Care Provider: LIZETH CRUZ Allergies Allergies cat dander Allergy (Severe, Verified 03/06/23 14:17) Shortness of Breath perfume Adverse Reaction (Intermediate, Verified 03/06/23 14:17) Shortness of Breath Hospital Summary - Hospital Course Hospital Course: 03/06/23 is a 72 year old female with PMHX of daily smoker, COPD, mixed hyperlipidemia, arrythmia, HTN, GERD, and osteoporosis. Pt presented to our ED for evaluation of progressive shortness of breath and cough. Symptoms started approximately 5 days ago. Symptoms have been progressive. No associated chest pain no nausea vomiting or diaphoresis. Upon arrival to our ED patient was hypoxic with an O2 sat on room air of 86%. Patient was placed on 2 L. O2 sat at rest is 95%. Symptoms are moderate in intensity. Symptoms are worse with exertion. She was started on steriods, antibiotics and breathing tx in ER. Will continue this treatment plan. She reports she is now feeling much better. Baseline is room air. She continues to have some wheezing, and currently on 2LNC. CXR was negative. Most likely we will keep her overnight and d/c tomorrow. She denies any further concerns at this time. 03/07/23 Pt is resting in bed. She explains she is feeling much better and would like to go home. She did qualify for home O2. Case management is setting this up for her. Discussed she needs to stop smoking and she is agreeable. She would like nicotine patches. Also provided [email or web address] information. She would be a great candidate for pulm rehab Op if she is willing. CM is also working on this if she qualifies and is willing. She c/o nasal congestion and flonase started. Will d/c with steroids and antibiotics. She will need to f/u with pulmonology OP. - Vitals & Intake/Output Vital Signs: Vital Signs Temperature 98.5 F 03/07/23 07:16 Pulse Rate 88 03/07/23 07:16 Respiratory Rate 17 03/07/23 07:16 Blood Pressure 128/58 03/07/23 07:16 O2 Sat by Pulse Oximetry 91 L 03/07/23 07:16 Intake & Output: Intake & Output 03/04/23 03/05/23 03/06/23 03/07/23 11:59 11:59 11:59 11:59 Intake Total 240 Output Total 600 Balance -360 Weight 55.8 kg - Lab Result Diagrams: 03/07/23 07:45 03/07/23 07:45 Lab Results-Last 24 Hrs: Lab Results-Last 24 Hours 03/06/23 03/06/23 03/06/23 Range/Units 14:51 15:10 15:10 WBC 6.0 (4.0-10.5) x10^3/uL RBC 3.96 L (4.1-5.4) x10^6/uL Hgb 12.5 (12.0-16.0) g/dL Hct 38.2 (35-47) % MCV 96.5 (78-100) fL MCH 31.6 (26-32) pg MCHC 32.7 (32-36) g/dL RDW 14.4 H (11.5-14.0) % Plt Count 358 (150-450) x10^3/uL MPV 9.2 (7.5-11.0) fL Gran % 66.5 H (36.0-66.0) % Immature Gran % (Auto) 0.3 (0.00-0.4) % Nucleat RBC Rel Count 0.0 (0.00-0.1) % Eos # (Auto) 0.42 (0-0.5) x10^3/uL Immature Gran # (Auto) 0.02 (0.00-0.03) x10^3u/L Absolute Lymphs (auto) 0.87 L (1.0-4.6) x10^3/uL Absolute Monos (auto) 0.63 (0.0-1.3) x10^3/uL Absolute Nucleated RBC 0.00 (0.00-0.01) x10^3u/L Lymphocytes % 14.6 L (24.0-44.0) % Monocytes % 10.6 (0.0-12.0) % Eosinophils % 7.0 H (0.00-5.0) % Basophils % 1.0 (0.0-0.4) % Absolute Granulocytes 3.96 (1.4-6.9) x10^3/uL Basophils # 0.06 (0-0.4) x10^3/uL D-Dimer 0.37 (0.0-0.50) mg/L Sodium 134 L (137-145) mmol/L Potassium 3.8 (3.5-5.1) mmol/L Chloride 99 (98-107) mmol/L Carbon Dioxide 29 (22-30) mmol/L Anion Gap 10.1 (5-15) MEQ/L BUN 21 H (7-17) mg/dL Creatinine 0.86 (0.52-1.04) mg/dL Estimated GFR 72.6 ML/MIN Glucose 139 H (74-106) mg/dL Calcium 9.7 (8.4-10.2) mg/dL Magnesium 1.6 (1.6-2.3) mg/dL Total Bilirubin 0.70 (0.2-1.3) mg/dL AST 30 (14-36) U/L ALT 19 (0-35) U/L Alkaline Phosphatase 95 (38-126) U/L Troponin I (0.000-0.034) ng/mL NT-Pro-B Natriuret Pep 231 (<300) pg/mL Serum Total Protein 7.7 (6.3-8.2) g/dL Albumin 4.3 (3.5-5.0) g/dL Urine Color (Yellow) Urine Appearance (Clear) Urine pH (4.6-8.0) Ur Specific [place] (1.005-1.030) Urine Protein (Negative) Urine Glucose (UA) (Negative) mg/dL Urine Ketones (Negative) Urine Blood (Negative) Urine Nitrite (Negative) Urine Bilirubin (Negative) Urine Urobilinogen (0.2) mg/dL Ur Leukocyte Esterase (Negative) U Hyaline Cast (Auto) (0-2) /LPF Urine Microscopic RBC (0-5) /HPF Urine Microscopic WBC (0-5) /HPF Ur Epithelial Cells (None Seen) /HPF Urine Bacteria (None Seen) /HPF Urine Culture Reflexed (NO) Influenza Type A Ag (NEGATIVE) Influenza Type B Ag (NEGATIVE) RSV (PCR) (NEGATIVE) SARS-CoV-2 (PCR) (NEGATIVE) 03/06/23 03/06/23 03/06/23 Range/Units 15:10 15:30 19:00 WBC (4.0-10.5) x10^3/uL RBC (4.1-5.4) x10^6/uL Hgb (12.0-16.0) g/dL Hct (35-47) % MCV (78-100) fL MCH (26-32) pg MCHC (32-36) g/dL RDW (11.5-14.0) % Plt Count (150-450) x10^3/uL MPV (7.5-11.0) fL Gran % (36.0-66.0) % Immature Gran % (Auto) (0.00-0.4) % Nucleat RBC Rel Count (0.00-0.1) % Eos # (Auto) (0-0.5) x10^3/uL Immature Gran # (Auto) (0.00-0.03) x10^3u/L Absolute Lymphs (auto) (1.0-4.6) x10^3/uL Absolute Monos (auto) (0.0-1.3) x10^3/uL Absolute Nucleated RBC (0.00-0.01) x10^3u/L Lymphocytes % (24.0-44.0) % Monocytes % (0.0-12.0) % Eosinophils % (0.00-5.0) % Basophils % (0.0-0.4) % Absolute Granulocytes (1.4-6.9) x10^3/uL Basophils # (0-0.4) x10^3/uL D-Dimer (0.0-0.50) mg/L Sodium (137-145) mmol/L Potassium (3.5-5.1) mmol/L Chloride (98-107) mmol/L Carbon Dioxide (22-30) mmol/L Anion Gap (5-15) MEQ/L BUN (7-17) mg/dL Creatinine (0.52-1.04) mg/dL Estimated GFR ML/MIN Glucose (74-106) mg/dL Calcium (8.4-10.2) mg/dL Magnesium (1.6-2.3) mg/dL Total Bilirubin (0.2-1.3) mg/dL AST (14-36) U/L ALT (0-35) U/L Alkaline Phosphatase (38-126) U/L Troponin I < 0.012 < 0.012 (0.000-0.034) ng/mL NT-Pro-B Natriuret Pep (<300) pg/mL Serum Total Protein (6.3-8.2) g/dL Albumin (3.5-5.0) g/dL Urine Color (Yellow) Urine Appearance (Clear) Urine pH (4.6-8.0) Ur Specific [place] (1.005-1.030) Urine Protein (Negative) Urine Glucose (UA) (Negative) mg/dL Urine Ketones (Negative) Urine Blood (Negative) Urine Nitrite (Negative) Urine Bilirubin (Negative) Urine Urobilinogen (0.2) mg/dL Ur Leukocyte Esterase (Negative) U Hyaline Cast (Auto) (0-2) /LPF Urine Microscopic RBC (0-5) /HPF Urine Microscopic WBC (0-5) /HPF Ur Epithelial Cells (None Seen) /HPF Urine Bacteria (None Seen) /HPF Urine Culture Reflexed (NO) Influenza Type A Ag NEGATIVE (NEGATIVE) Influenza Type B Ag NEGATIVE (NEGATIVE) RSV (PCR) NEGATIVE (NEGATIVE) SARS-CoV-2 (PCR) NEGATIVE (NEGATIVE) 03/06/23 03/06/23 03/07/23 Range/Units 22:45 Unknown 07:45 WBC 4.5 (4.0-10.5) x10^3/uL RBC 3.79 L (4.1-5.4) x10^6/uL Hgb 11.9 L (12.0-16.0) g/dL Hct 37.3 (35-47) % MCV 98.4 (78-100) fL MCH 31.4 (26-32) pg MCHC 31.9 L (32-36) g/dL RDW 14.4 H (11.5-14.0) % Plt Count 287 (150-450) x10^3/uL MPV 9.1 (7.5-11.0) fL Gran % (36.0-66.0) % Immature Gran % (Auto) (0.00-0.4) % Nucleat RBC Rel Count (0.00-0.1) % Eos # (Auto) (0-0.5) x10^3/uL Immature Gran # (Auto) (0.00-0.03) x10^3u/L Absolute Lymphs (auto) (1.0-4.6) x10^3/uL Absolute Monos (auto) (0.0-1.3) x10^3/uL Absolute Nucleated RBC (0.00-0.01) x10^3u/L Lymphocytes % (24.0-44.0) % Monocytes % (0.0-12.0) % Eosinophils % (0.00-5.0) % Basophils % (0.0-0.4) % Absolute Granulocytes (1.4-6.9) x10^3/uL Basophils # (0-0.4) x10^3/uL D-Dimer (0.0-0.50) mg/L Sodium (137-145) mmol/L Potassium (3.5-5.1) mmol/L Chloride (98-107) mmol/L Carbon Dioxide (22-30) mmol/L Anion Gap (5-15) MEQ/L BUN (7-17) mg/dL Creatinine (0.52-1.04) mg/dL Estimated GFR ML/MIN Glucose (74-106) mg/dL Calcium (8.4-10.2) mg/dL Magnesium (1.6-2.3) mg/dL Total Bilirubin (0.2-1.3) mg/dL AST (14-36) U/L ALT (0-35) U/L Alkaline Phosphatase (38-126) U/L Troponin I < 0.012 (0.000-0.034) ng/mL NT-Pro-B Natriuret Pep (<300) pg/mL Serum Total Protein (6.3-8.2) g/dL Albumin (3.5-5.0) g/dL Urine Color Yellow (Yellow) Urine Appearance Clear (Clear) Urine pH 5.5 (4.6-8.0) Ur Specific [place] 1.020 (1.005-1.030) Urine Protein Negative (Negative) Urine Glucose (UA) Negative (Negative) mg/dL Urine Ketones Trace A (Negative) Urine Blood Negative (Negative) Urine Nitrite Negative (Negative) Urine Bilirubin Negative (Negative) Urine Urobilinogen 1.0 A (0.2) mg/dL Ur Leukocyte Esterase Negative (Negative) U Hyaline Cast (Auto) NONE SEEN (0-2) /LPF Urine Microscopic RBC 0-2 (0-5) /HPF Urine Microscopic WBC 0-2 (0-5) /HPF Ur Epithelial Cells None Seen (None Seen) /HPF Urine Bacteria None Seen (None Seen) /HPF Urine Culture Reflexed NO (NO) Influenza Type A Ag (NEGATIVE) Influenza Type B Ag (NEGATIVE) RSV (PCR) (NEGATIVE) SARS-CoV-2 (PCR) (NEGATIVE) 03/07/23 Range/Units 07:45 WBC (4.0-10.5) x10^3/uL RBC (4.1-5.4) x10^6/uL Hgb (12.0-16.0) g/dL Hct (35-47) % MCV (78-100) fL MCH (26-32) pg MCHC (32-36) g/dL RDW (11.5-14.0) % Plt Count (150-450) x10^3/uL MPV (7.5-11.0) fL Gran % (36.0-66.0) % Immature Gran % (Auto) (0.00-0.4) % Nucleat RBC Rel Count (0.00-0.1) % Eos # (Auto) (0-0.5) x10^3/uL Immature Gran # (Auto) (0.00-0.03) x10^3u/L Absolute Lymphs (auto) (1.0-4.6) x10^3/uL Absolute Monos (auto) (0.0-1.3) x10^3/uL Absolute Nucleated RBC (0.00-0.01) x10^3u/L Lymphocytes % (24.0-44.0) % Monocytes % (0.0-12.0) % Eosinophils % (0.00-5.0) % Basophils % (0.0-0.4) % Absolute Granulocytes (1.4-6.9) x10^3/uL Basophils # (0-0.4) x10^3/uL D-Dimer (0.0-0.50) mg/L Sodium 137 (137-145) mmol/L Potassium 4.0 (3.5-5.1) mmol/L Chloride 104 (98-107) mmol/L Carbon Dioxide 28 (22-30) mmol/L Anion Gap 8.7 (5-15) MEQ/L BUN 16 (7-17) mg/dL Creatinine 0.72 (0.52-1.04) mg/dL Estimated GFR 89.9 ML/MIN Glucose 157 H (74-106) mg/dL Calcium 9.2 (8.4-10.2) mg/dL Magnesium (1.6-2.3) mg/dL Total Bilirubin 0.40 (0.2-1.3) mg/dL AST 22 (14-36) U/L ALT 16 (0-35) U/L Alkaline Phosphatase 87 (38-126) U/L Troponin I (0.000-0.034) ng/mL NT-Pro-B Natriuret Pep (<300) pg/mL Serum Total Protein 6.7 (6.3-8.2) g/dL Albumin 3.9 (3.5-5.0) g/dL Urine Color (Yellow) Urine Appearance (Clear) Urine pH (4.6-8.0) Ur Specific [place] (1.005-1.030) Urine Protein (Negative) Urine Glucose (UA) (Negative) mg/dL Urine Ketones (Negative) Urine Blood (Negative) Urine Nitrite (Negative) Urine Bilirubin (Negative) Urine Urobilinogen (0.2) mg/dL Ur Leukocyte Esterase (Negative) U Hyaline Cast (Auto) (0-2) /LPF Urine Microscopic RBC (0-5) /HPF Urine Microscopic WBC (0-5) /HPF Ur Epithelial Cells (None Seen) /HPF Urine Bacteria (None Seen) /HPF Urine Culture Reflexed (NO) Influenza Type A Ag (NEGATIVE) Influenza Type B Ag (NEGATIVE) RSV (PCR) (NEGATIVE) SARS-CoV-2 (PCR) (NEGATIVE) - Radiology Exams Ordered Rad Exams-Entire Visit: Radiology Procedures Category Date Time Status CHEST 1 VIEW (PORTABLE) Stat Exams 03/06/23 16:09 Completed - Procedures and Test Procedures and Tests throughout Hospitalization: Therapy Orders & Screens 03/06/23 14:43 Respiratory Therapy Assessment DAILY Comment: 03/06/23 16:52 Oxygen Nasal Cannula 2 lpm Comment: 03/06/23 17:19 Respiratory MDI BID Comment: Diagnosis: COPD exacerbation, hypoxia 03/06/23 17:26 Smoking Cessation Education ONCE Comment: Diagnosis: COPD exacerbation, hypoxia Smoking Status: Current every day smoker How long have you smoked: 50 years Have you smoked in the past 12 months: Yes Approximately how many cigarettes per day: 1/2 pack - 1 pack per day Do you dip or chew tobacco: No 03/07/23 07:28 RT 6 Minute Walk ROUTINE Comment: Diagnosis: COPD exacerbation, hypoxia Discharge Exam General Appearance: no apparent distress, alert Neurologic Exam: alert, oriented x 3, cooperative, normal mood/affect, nml cerebellar function, sensation nml, No motor deficits Eye Exam: PERRL, EOMI, eyes nml inspection Ears, Nose, Throat Exam: normal ENT inspection, pharynx normal, moist mucous membranes Neck Exam: normal inspection, non-tender, supple, full range of motion Respiratory Exam: normal breath sounds, lungs clear, No respiratory distress Cardiovascular Exam: regular rate/rhythm, normal heart sounds Gastrointestinal/Abdomen Exam: soft, No tenderness, No mass Pelvic Exam: deferred Rectal Exam: deferred Back Exam: normal inspection, normal range of motion, No CVA tenderness, No vertebral tenderness Extremity Exam: normal inspection, normal range of motion Skin Exam: normal color, warm, dry Final Diagnosis/Problem List - Final Discharge Diagnosis/Problem (1) COPD exacerbation Current Visit: Yes Status: Acute Code(s): J44.1 - CHRONIC OBSTRUCTIVE PULMONARY DISEASE W (ACUTE) EXACERBATION (2) Hyperlipidemia Current Visit: Yes Status: Acute Code(s): E78.5 - HYPERLIPIDEMIA, UNSPECIFIED (3) Smoker Current Visit: Yes Status: Acute Code(s): F17.200 - NICOTINE DEPENDENCE, UNSPECIFIED, UNCOMPLICATED (4) GERD (gastroesophageal reflux disease) Current Visit: Yes Status: Acute Assessment & Plan: (1) COPD exacerbation Current Visit: Yes Status: Acute Assessment & Plan: - Chest XR 03/06/23 Portable chest again hyperinflated and clear. Heart not enlarged. Bony thorax intact again with osteopenia and mild degenerative changes. No new/acute findings. - Ceftriaxone daily - prednisone 40mg daily - Duonebs - Advair - 2LNC- Baseline RA - RSV/ Flu/ COVID - negative - tele Code(s): J44.1 - CHRONIC OBSTRUCTIVE PULMONARY DISEASE W (ACUTE) EXACERBATION (2) Hyperlipidemia Current Visit: Yes Status: Acute Assessment & Plan: - Continue statin Code(s): E78.5 - HYPERLIPIDEMIA, UNSPECIFIED (3) Smoker Current Visit: Yes Status: Acute Assessment & Plan: - advised cessation - nicotine patch Code(s): F17.200 - NICOTINE DEPENDENCE, UNSPECIFIED, UNCOMPLICATED (4) GERD (gastroesophageal reflux disease) Current Visit: Yes Status: Acute Assessment & Plan: - Continue pepcid Code(s): K21.9 - GASTRO-ESOPHAGEAL REFLUX DISEASE WITHOUT ESOPHAGITIS - Discharge Discharge Date: 03/07/23 Disposition: Home, Self-Care Condition: Stable Prescriptions: New Nicotine 21 mg [Nicoderm CQ 21 MG] 21 mg TOP Q24H10 28 Days #28 patch Fluticasone Propionate [Flonase NASAL] 1 gm NS DAILY 10 Days #1 inh Fluticasone/Salmeterol 230/21 [Advair Hfa 230/21 Mcg COMMON CANISTER*] 2 puff IH BID 30 Days #1 inhaler Prednisone 20 mg [Deltasone 20 mg] 20 mg PO BID 4 Days #7 tablet Cefuroxime Axetil 500 mg [Ceftin 500 mg] 500 mg PO BID 5 Days #10 tablet Continue Alendronate Sodium 70 mg PO WEEKLY Amlodipine Besylate 5 mg PO DAILY Aspirin EC 81 mg [Ecotrin 81 mg] 81 mg PO DAILY Niacin 500 mg PO DAILY Atorvastatin Calcium [Lipitor] 10 mg PO DAILY Famotidine 20 mg [Pepcid 20 MG] 20 mg PO DAILY Metoprolol Tartrate 50 mg [Lopressor 50 MG] 50 mg PO BID Albuterol Sulfate 1 neb IH QID Cyanocobalamin (Vitamin B-12) [Vitamin B12] 1,000 mcg PO DAILY Cholecalciferol (Vitamin D3) [Vitamin D3] 125 mcg PO DAILY Calcium Carbonate [Calcium] 600 mg PO DAILY Instructions: Quitting Smoking for Older Adults, Oxygen Therapy, Adult (DC), Exacerbation of COPD (DC) Additional Instructions: Please follow up with Dr. Melendrez. Follow up with: LIZETH CRUZ [Primary Care Provider] -
[2023-03-07] MEDS: DELTASONE 20 MG PO SCH (09:41)
[2023-03-07] MEDS: Lopressor 50 MG PO SCH (09:41)
[2023-03-07] MEDS: Nicoderm CQ 21 MG TOP SCH (09:43)
[2023-03-07] MEDS ORDERED: Zocor 10MG PO SCH (10:00)
[2023-03-07] MEDS ORDERED: ENOXAPARIN SODIUM SQ SCH (10:00)
[2023-03-07] MEDS ORDERED: ECOTRIN 81 MG PO SCH (10:00)
[2023-03-07] MEDS ORDERED: NON-FORMULARY ITEM (Cyanocobalamin (Vitamin B-12) [Vitamin B12] 2,500 MCG Tablet) PO SCH (10:00)
[2023-03-07] MEDS ORDERED: Flonase NASAL NS SCH (10:00)
[2023-03-07] MEDS ORDERED: NON-FORMULARY ITEM (Atorvastatin Calcium 10 MG Tablet) PO SCH (10:00)
[2023-03-07] MEDS ORDERED: NON-FORMULARY ITEM (Calcium Carbonate [Calcium] 600 MG Tablet) PO SCH (10:00)
[2023-03-07] MEDS ORDERED: NIACIN 100 MG PO SCH (10:00)
[2023-03-07] MEDS ORDERED: NORVASC 5 MG PO SCH (10:00)
[2023-03-07] MEDS ORDERED: ROCEPHIN 1 Gm-D5w 50 ml Bag** 1 G/50 ML IVPB IV SCH (10:00)
[2023-03-07] MEDS ORDERED: Calcium 500MG W/Vit D Tablet PO SCH (10:00)
[2023-03-07] MEDS ORDERED: Vitamin B-12 500 MCG PO SCH (10:00)
[2023-03-07] MEDS ORDERED: NON-FORMULARY ITEM (Cholecalciferol (Vitamin D3) [Vitamin D3] 125 MCG Capsule) PO SCH (10:00)
[2023-03-07] MEDS ORDERED: Pepcid 20 MG PO SCH (10:00)
[2023-03-07] MEDS ORDERED: VITAMIN D PO SCH (10:00)
[2023-03-07 12:24] VITALS: BP 117/63; PULSE 71; RESP 18; O2SAT 97
[2023-03-11] MEDS ORDERED: Fosamax 70 MG PO SCH (06:00)
== END 2023-03-07 13:41 | disposition home or self-care (01) ==
LOC: ED 14:15 → MED SURG 16:35
PROVIDERS: ADMIT Internal Medicine; ATTEND Internal Medicine
DX: J44.1 Chronic obstructive pulmonary disease with (acute) exacerbation (principal); E78.5 Hyperlipidemia, unspecified; F17.200 Nicotine dependence, unspecified, uncomplicated; I10 Essential (primary) hypertension; K21.9 Gastro-esophageal reflux disease without esophagitis; Z79.899 Other long term (current) drug therapy; Z20.828 Contact with and (suspected) exposure to other viral communicable diseases
CPT/HCPCS: 0241U; 36000; 36415; 71045; 80053; 81001; 83735; 83880; 84484; 85025; 85027; 85379; 87040; 93005; 93041; 94640; 94760; 94762; 96374; 99285; 93268; J0456; J0696; J1650; J2930; Q3014; A9270-GY; G0378

== ENCOUNTER 2023-08-17 21:10 | Observation (INO) | payer MEDICARE, OTHER ==
[2023-08-17] MEDS ORDERED: DUONEB 0.5-3 MG/3 ml Neb IH ONE (21:12)
--- NOTE | 2023-08-17 21:18 | ERPHSYRPT ---
- History of Present Illness Time Seen by Provider: 08/17/23 21:18 Source: patient, family Exam Limitations: no limitations Physician History: This is a 72-year-old white female patient who has a history of COPD and is not oxygen dependent and presents to the emergency department by private vehicle because of worsening shortness of breath over the last week. She is a daily smoker cigarettes. Patient has only been using her nebulizer treatments every 6 hours while she is awake. She is not on steroids ordinarily. She arrives to the emergency department with a room air oxygen saturation level of 87% initially but then it increased 93 to 95% when I evaluated her after her immediate nebulizer treatment. Patient has a history of hypertension, hyperlipidemia and arrhythmias. She has not had a fever. She denies a new cough. She has no abdominal pain. She has no nausea vomiting or diarrhea symptoms. Timing/Duration: week(s), worse Severity of Dyspnea-Max: mild Severity of Dyspnea-Current: mild Possible Cause: occasional episodes, smoke exposure Associated Symptoms: wheezing, No chest pain/discomfort (Tobacco) Allergies/Adverse Reactions: cat dander Allergy (Severe, Verified 03/06/23 14:17) Shortness of Breath perfume Adverse Reaction (Intermediate, Verified 03/06/23 14:17) Shortness of Breath Home Medications: Alendronate Sodium 70 mg PO WEEKLY 06/09/18 [History] Amlodipine Besylate 5 mg PO DAILY 06/09/18 [History] Aspirin EC 81 mg [Ecotrin 81 mg] 81 mg PO DAILY 12/27/21 [History] Atorvastatin Calcium [Lipitor] 10 mg PO DAILY 12/27/21 [History] Famotidine 20 mg [Pepcid 20 MG] 20 mg PO DAILY 12/27/21 [History] Niacin 500 mg PO DAILY 12/27/21 [History] Metoprolol Tartrate 50 mg [Lopressor 50 MG] 50 mg PO BID 01/03/22 [History] Albuterol Sulfate 1 neb IH QID 03/06/23 [History] Calcium Carbonate [Calcium] 600 mg PO DAILY 03/06/23 [History] Cholecalciferol (Vitamin D3) [Vitamin D3] 125 mcg PO DAILY 03/06/23 [History] Cyanocobalamin (Vitamin B-12) [Vitamin B12] 1,000 mcg PO DAILY 03/06/23 [History] Hx Tetanus, Diphtheria Vaccination/Date Given: Yes Hx Influenza Vaccination/Date Given: Yes Hx Pneumococcal Vaccination/Date Given: Yes Travel Risk - International Travel Have you traveled outside of the country in past 3 weeks: No - Emerging Infectious Disease Are you exhibiting symptoms associated with any current EIDs: Yes Symptoms: Shortness of Breath - Review of Systems Constitutional: No Symptoms Eyes: No Symptoms Ears, Nose, & Throat: No Symptoms Respiratory: Dyspnea Cardiac: No Symptoms Abdominal/Gastrointestinal: No Symptoms Genitourinary Symptoms: No Symptoms Musculoskeletal: No Symptoms Skin: No Symptoms Neurological: No Symptoms Psychological: No Symptoms Endocrine: No Symptoms Hematologic/Lymphatic: No Symptoms Immunological/Allergic: No Symptoms All Other Systems: Reviewed and Negative - Past Medical History Pertinent Past Medical History: Yes Neurological History: No Pertinent History ENT History: No Pertinent History Cardiac History: Arrhythmia, Hypertension Respiratory History: COPD Endocrine Medical History: No Pertinent History Musculoskeletal History: No Pertinent History GI Medical History: Gallbladder Disease History: No Pertinent History Psycho-Social History: No Pertinent History Female Reproductive Disorders: No Pertinent History - Past Surgical History Past Surgical History: Yes Neuro Surgical History: No Pertinent History Cardiac: Cardiac Catheterization Respiratory: No Pertinent History Gastrointestinal: Appendectomy, Cholecystectomy Genitourinary: No Pertinent History Musculoskeletal: No Pertinent History Female Surgical History: Hysterectomy Other Surgical History: release of 1st dorsal compartment, 3 laproscopy female. - Social History Smoking Status: Current every day smoker How long have you smoked: 50 years Exposure to second hand smoke: Yes Drug Use: none Patient Lives Alone: Yes - Social Determinants of Health Will the patient participate in the screening: Declined to provide - Nursing Vital Signs Nursing Vital Signs: Initial Vital Signs Temperature 98.2 F 08/17/23 21:14 Pulse Rate 82 08/17/23 21:14 Respiratory Rate 34 H 08/17/23 21:14 Blood Pressure 153/125 08/17/23 21:14 O2 Sat by Pulse Oximetry 87 L 08/17/23 21:14 Pain Scale Pain Intensity 0 - Physical Exam General Appearance: no apparent distress, alert, anxiety Eye Exam: PERRL/EOMI, eyes nml inspection Ears, Nose, Throat Exam: hearing grossly normal, normal ENT inspection, normal pharynx Neck Exam: normal inspection, non-tender, supple, full range of motion Respiratory Exam: normal breath sounds, lungs clear, airway intact, No chest tenderness, No respiratory distress Cardiovascular/Chest Exam: normal heart sounds, regular rate/rhythm Abdominal/Gastrointestinal Exam: soft, normal bowel sounds, No tenderness Rectal Exam: not done Extremity Exam: non-tender, normal range of motion, normal inspection, normal capillary refill, no calf tenderness, no pedal edema, pelvis stable Neurologic Exam: alert, oriented x 3, cooperative, computer technician II-XII nml as tested, nml cerebellar function, nml station & gait, sensation nml Skin Exam: normal color, warm, dry Lymphatic Exam: No adenopathy SpO2 Interpretation: normal O2 Delivery: Room Air - Course Nursing assessment & vital signs reviewed: Yes EKG Interpreted by Me: RATE (78), Sinus Rhythm, NORMAL AXIS, NORMAL INTERVALS, NORMAL QRS, NORMAL ST-T, Other (No evidence of acute ischemia on today's twelve- lead EKG. QTc is 412) Ordered Tests: Active Orders 24 hr Category Date Time Status Cable Hooker STAT Care 08/17/23 21:19 Active EKG-ER Only STAT Care 08/17/23 21:18 Active IV Insertion STAT Care 08/17/23 21:18 Active CHEST 1 VIEW (PORTABLE) Stat Exams 08/17/23 21:18 Ordered BLOOD CULTURE Stat Lab 08/17/23 21:45 Received CBC W DIFF Stat Lab 08/17/23 21:40 Completed CMP Stat Lab 08/17/23 21:40 Completed D-DIMER QUANTITATIVE Stat Lab 08/17/23 21:40 Completed MAGNESIUM Stat Lab 08/17/23 21:40 Completed NT PRO BNPII Stat Lab 08/17/23 21:40 Completed TROPONIN Q4H Lab 08/17/23 21:40 Completed TROPONIN Q4H Lab 08/18/23 01:30 Ordered TROPONIN Q4H Lab 08/18/23 05:30 Ordered Respiratory Therapy Assessment DAILY RT 08/17/23 21:26 Active Medication Summary Discontinued Medications Generic Name Dose Route Start Last Admin Trade Name Freq PRN Reason Stop Dose Admin Albuterol/Ipratropium 3 ml 08/17/23 21:23 08/17/23 21:29 Ipratropium/Albuterol Sulfate 3 Ml Ampul.Neb IH 08/17/23 21:24 3 ml STAT ONE Administration Methylprednisolone Sodium 0 mg 08/17/23 22:16 08/17/23 22:21 Succinate 125 mg/ Sterile IV 08/17/23 22:17 125 mg Water 2 ml STAT ONE Administration Methylprednisolone Sodium Succinate Confirm 08/17/23 22:19 Methylprednis Sod Succ 125 Mg/2 Ml Vial Administered 08/17/23 22:20 Dose 125 mg .ROUTE .GRID-Strutta ONE Sterile Water Confirm 08/17/23 22:19 Water For Injection,Sterile 10 Ml Vial Administered 08/17/23 22:20 Dose 10 ml IJ .GRID-MED ONE Lab/Rad Data: Laboratory Result Diagrams 08/17/23 21:40 08/17/23 21:40 Laboratory Results 08/17/23 08/17/23 08/17/23 Range/Units 21:40 21:40 21:40 WBC (3.98-10.04) x10^3/uL RBC (3.93-5.22) x10^6/uL Hgb (11.2-15.7) g/dL Hct (34.1-44.9) % MCV (79.4-94.8) fL MCH (25.6-32.2) pg MCHC (32.2-35.5) g/dL RDW (11.7-14.4) % Plt Count (182-369) x10^3/uL MPV (9.4-12.3) fL Gran % (34.0-71.1) % Immature Gran % (Auto) (0.001-0.429) % Nucleat RBC Rel Count (0.00-0.2) % Eos # (Auto) (0.04-0.36) x10^3/uL Immature Gran # (Auto) (0.001-0.031) x10^3u/L Absolute Lymphs (auto) (1.18-3.74) x10^3/uL Absolute Monos (auto) (0.24-0.86) x10^3/uL Absolute Nucleated RBC (0.00-0.012) x10^3u/L Lymphocytes % (19.3-51.7) % Monocytes % (4.7-12.5) % Eosinophils % (0.7-5.8) % Basophils % (0.1-1.2) % Absolute Granulocytes (1.56-6.13) x10^3/uL Basophils # (0.01-0.08) x10^3/uL D-Dimer 0.48 (0.0-0.50) mg/L Sodium (135-145) mmol/L Potassium (3.5-5.1) mmol/L Chloride (98-107) mmol/L Carbon Dioxide (22-30) mmol/L Anion Gap (5-15) MEQ/L BUN (7-17) mg/dL Creatinine (0.52-1.04) mg/dL Estimated GFR ML/MIN Glucose (74-106) mg/dL Calcium (8.4-10.2) mg/dL Magnesium (1.6-2.3) mg/dL Total Bilirubin (0.2-1.3) mg/dL AST (14-36) U/L ALT (0-35) U/L Alkaline Phosphatase (38-126) U/L Troponin I < 0.012 (0.000-0.033) ng/mL NT-Pro-B Natriuret Pep 131 (<300) pg/mL Serum Total Protein (6.3-8.2) g/dL Albumin (3.5-5.0) g/dL 08/17/23 08/17/23 Range/Units 21:40 21:40 WBC 9.1 (3.98-10.04) x10^3/uL RBC 4.29 (3.93-5.22) x10^6/uL Hgb 13.9 (11.2-15.7) g/dL Hct 42.4 (34.1-44.9) % MCV 98.8 H (79.4-94.8) fL MCH 32.4 H (25.6-32.2) pg MCHC 32.8 (32.2-35.5) g/dL RDW 14.5 H (11.7-14.4) % Plt Count 306 (182-369) x10^3/uL MPV 8.8 L (9.4-12.3) fL Gran % 67.2 (34.0-71.1) % Immature Gran % (Auto) 0.3 (0.001-0.429) % Nucleat RBC Rel Count 0.0 (0.00-0.2) % Eos # (Auto) 1.00 H (0.04-0.36) x10^3/uL Immature Gran # (Auto) 0.03 (0.001-0.031) x10^3u/L Absolute Lymphs (auto) 1.21 (1.18-3.74) x10^3/uL Absolute Monos (auto) 0.67 (0.24-0.86) x10^3/uL Absolute Nucleated RBC 0.00 (0.00-0.012) x10^3u/L Lymphocytes % 13.3 L (19.3-51.7) % Monocytes % 7.4 (4.7-12.5) % Eosinophils % 11.0 H (0.7-5.8) % Basophils % 0.8 (0.1-1.2) % Absolute Granulocytes 6.12 (1.56-6.13) x10^3/uL Basophils # 0.07 (0.01-0.08) x10^3/uL D-Dimer (0.0-0.50) mg/L Sodium 142 (135-145) mmol/L Potassium 4.5 (3.5-5.1) mmol/L Chloride 104 (98-107) mmol/L Carbon Dioxide 29 (22-30) mmol/L Anion Gap 12.7 (5-15) MEQ/L BUN 25 H (7-17) mg/dL Creatinine 1.09 H (0.52-1.04) mg/dL Estimated GFR 54.7 ML/MIN Glucose 138 H (74-106) mg/dL Calcium 10.2 (8.4-10.2) mg/dL Magnesium 1.7 (1.6-2.3) mg/dL Total Bilirubin 0.40 (0.2-1.3) mg/dL AST 34 (14-36) U/L ALT 20 (0-35) U/L Alkaline Phosphatase 94 (38-126) U/L Troponin I (0.000-0.033) ng/mL NT-Pro-B Natriuret Pep (<300) pg/mL Serum Total Protein 7.6 (6.3-8.2) g/dL Albumin 4.3 (3.5-5.0) g/dL - Progress Progress: improved, re-examined Air Movement: good Progress Note: 08/17/23 22:00 My medical decision making and the assignment of moderate complexity to this patient's medical issue today is based on review of the patient's past medical history, review the patient's medication list, review of patient drug allergy list, history present illness and physical findings on examination. The workup in this patient includes placement of intravenous line, infusion of Solu-Medrol, obtaining respiratory therapy consultation and nebulizer treatment, CBC, CMP, BNP, D-dimer, troponin level, twelve-lead EKG, and chest x-ray. Differential diagnosis includes but is not limited to CHF exacerbation, COPD ex acerbation, myocardial infarction, pneumonia, viral illness, electrolyte abnormalities, arrhythmias 08/17/23 22:26 i interpreted the preliminary report of the cxr. no acute cardiopulmonary process 08/17/23 22:39 I interpreted the patient's laboratory results. There is no evidence of any acute or emergent medical issue at this time. I reexamined the patient. Her lungs are clear there is no wheezing. Patient states she feels much better and wants to go home. Her room air oxygen saturation levels are 92 to 93%. She has a normal white count with no significant left shift. Her D-dimer, troponin level and BNP are all within normal limits. She has a normal twelve-lead EKG. She denies chest pain at this time. Patient would prefer a Medrol Dosepak over prednisone. We will remotely send a prescription of Medrol Dosepak to her pharmacy. Blood Culture(s) Obtained: Yes Counseled pt/family regarding: lab results, diagnosis, need for follow-up Medical Desision Making - Diagnostic Testing Diagnostic test were ordered, analyzed, and reviewed by me: Yes Radiological Interpretation: Interpreted by me - Risk of complications The pt has a mod risk of morbidity or mortality based on: Need for prescription drug management - Departure Departure Disposition: Home Clinical Impression: COPD exacerbation Condition: Stable Critical Care Time: No Referrals: LIZETH CRUZ [Primary Care Provider] - Follow up/PCP as directed Instructions: Chronic Obstructive Pulmonary Disease Additional Instructions: Stop smoking. Use your nebulizer machine and medication every 4 hours while awake. Take your steroids and other medication as prescribed. Call your primary care provider on 08/20/2023 to make arrangements for follow-up appointment for further management. Return to the emergency department if symptoms recur. Call your twisting machine operator on 08/20/2023 to make arrangements for follow-up appointment for further evaluation management
[2023-08-17] MEDS: DUONEB 0.5-3 MG/3 ml Neb IH ONE (21:29)
[2023-08-17 21:51] LABS: Absolute Neutrophil Ct (ANC) 6.12 x10^3/uL (1.56-6.13); BASOPHIL % 0.8 % (0.1-1.2); Basophil (Absolute #) 0.07 x10^3/uL (0.01-0.08); Hematocrit 42.4 % (34.1-44.9); Hemoglobin 13.9 g/dL (11.2-15.7); IMMATURE GRAN # 0.03 x10^3u/L (0.001-0.031); IMMATURE GRAN % 0.3 % (0.001-0.429); Lymphocyte (Absolute #) 1.21 x10^3/uL (1.18-3.74); Lymphocytes % 13.3 % (19.3-51.7); Mean Cell Volume 98.8 fL (79.4-94.8); Mean Corpuscular Hemoglobin 32.4 pg (25.6-32.2); Mean Corpuscular Hgb Concent. 32.8 g/dL (32.2-35.5); Mean Platelet Volume 8.8 fL (9.4-12.3); Monocyte (Absolute #) 0.67 x10^3/uL (0.24-0.86); Monocytes % 7.4 % (4.7-12.5); Neutrophil % 67.2 % (34.0-71.1); Platelet Count 306 x10^3/uL (182-369); Red Blood Count 4.29 x10^6/uL (3.93-5.22); Red Cell Distribution Width 14.5 % (11.7-14.4); White Blood Count 9.1 x10^3/uL (3.98-10.04)
[2023-08-17 22:08] LABS: ALBUMIN 4.3 g/dL (3.5-5.0); ANION GAP 12.7 MEQ/L (5-15); BILIRUBIN,TOTAL 0.4 mg/dL (0.2-1.3); Calcium 10.2 mg/dL (8.4-10.2); Creatinine 1 1.09 mg/dL (0.52-1.04); EST GLOMERULAR FILTRATION RATE 54.7 ML/MIN; MAGNESIUM 1.7 mg/dL (1.6-2.3); Potassium 4.5 mmol/L (3.5-5.1); Total Protein 7.6 g/dL (6.3-8.2)
[2023-08-17] MEDS ORDERED: Sterile H2O 10 ml IJ ONE (22:19)
[2023-08-17] MEDS ORDERED: solu-MEDROL ONE (22:19)
[2023-08-17] MEDS: solu-MEDROL 125 MG, Sterile H2O 10 ml 2 ML IV ONE (22:21)
[2023-08-17] MEDS ORDERED: PROVENTIL 2.5 MG/3 ML NEB IH ONE (22:47)
[2023-08-17] MEDS: PROVENTIL 2.5 MG/3 ML NEB IH ONE (22:52)
--- NOTE | 2023-08-18 00:02 | PCM.HP ---
History of Present Illness - Chief Complaint Chief Complaint: Shortness of breath Date: 08/17/23 History of Present Illness: is a 72 year old female With past medical history significant for hypertension, hyperlipidemia, GERD, active smoker in the ER vital signs were stable. Labs workup was essentially negative, COPD not on home oxygen came to the ER complaining of shortness of breath for last 1-2 week duration. Patient did not feel any better even after using her nebs every 6 hourly. She did have productive cough but no fever. No chest pain. No other GI urinary symptoms reported.. Troponin and BNP unremarkable. Chest x-ray did not show any infil trates. Patient did get better after breathing therapy but keeps on desaturating and not able to get discharged home. Admitted for COPD exacerbation - Review of Systems All Other Systems: Reviewed and Negative (14 systems reviewed and marked ve except mentioned in [facility]) Medications & Allergies Home Medications: Home Medication List Alendronate Sodium 70 mg PO WEEKLY 06/09/18 [History Confirmed 08/17/23] Amlodipine Besylate 5 mg PO DAILY 06/09/18 [History Confirmed 08/17/23] Aspirin EC 81 mg [Ecotrin 81 mg] 81 mg PO DAILY 12/27/21 [History Confirmed 08/17/23] Atorvastatin Calcium [Lipitor] 5 mg PO DAILY 12/27/21 [History Confirmed 08/17/23] Famotidine 20 mg [Pepcid 20 MG] 20 mg PO DAILY 12/27/21 [History Confirmed 08/17/23] Niacin 200 mg PO BID 12/27/21 [History Confirmed 08/17/23] Metoprolol Tartrate 50 mg [Lopressor 50 MG] 50 mg PO BID 01/03/22 [History Confirmed 08/17/23] Albuterol Sulfate 1 neb IH Q6H 03/06/23 [History Confirmed 08/17/23] Calcium Carbonate [Calcium] 600 mg PO DAILY 03/06/23 [History Confirmed 08/17/23] Cholecalciferol (Vitamin D3) [Vitamin D3] 125 mcg PO DAILY 03/06/23 [History Confirmed 08/17/23] Cyanocobalamin (Vitamin B-12) [Vitamin B12] 1,000 mcg PO DAILY 03/06/23 [History Confirmed 08/17/23] Fluticasone/Salmeterol 230/21 [Advair Hfa 230/21 Mcg COMMON CANISTER*] 2 puff IH BID 30 Days #1 inhaler 03/07/23 [Rx Confirmed 08/17/23] Albuterol Sulfate [Albuterol Sulfate Hfa] 2 puff IH Q4HPRN PRN 08/17/23 [History Confirmed 08/17/23] Methylprednisolone Packet [Medrol Dosepack] 4 mg PO UD #1 packet 08/17/23 [Rx] Allergies/Adverse Reactions: Allergies Allergy/AdvReac Type Severity Reaction Status Date / Time cat dander Allergy Severe Shortness Verified 08/17/23 23:24 of Breath perfume AdvReac Intermediate Shortness Verified 08/17/23 23:24 of Breath - Past Medical History Past Medical History: Yes Neurological History: No Pertinent History ENT History: No Pertinent History Cardiac History: Arrhythmia, Hypertension Respiratory History: COPD Endocrine Medical History: No Pertinent History Musculoskelatal History: No Pertinent History GI Medical History: Gallbladder Disease History: No Pertinent History Pyscho-Social History: No Pertinent History Reproductive Disorders: No Pertinent History - Past Surgical History Past Surgical History: Yes Neuro Surgical History: No Pertinent History Cardiac History: Cardiac Catheterization Respiratory Surgery: No Pertinent History GI Surgical History: Appendectomy, Cholecystectomy Genitourinary Surgical Hx: No Pertinent History Musculskeletal Surgical Hx: No Pertinent History Female Surgical History: Hysterectomy Other Surgical History: release of 1st dorsal compartment, 3 laproscopy female. Significant Family History: no pertinent family hx (No family history pertaining to this admission reported.) - Social History Smoking Status: Current every day smoker How long have you smoked: 50 years Exposure to second hand smoke: Yes Alcohol: Occasionally Drug Use: none - Social Determinants of Health Will the patient participate in the screening: Declined to provide - Physical Exam Vital Signs: Vital Signs - 24 hr Temp Pulse Resp BP BP Pulse Ox 08/17/23 23:31 81 36 H 95 08/17/23 23:00 83 29 H 131/66 95 08/17/23 22:52 77 20 90 L 08/17/23 22:30 74 23 138/75 93 L 08/17/23 22:15 74 24 143/72 90 L 08/17/23 22:00 75 24 143/72 95 08/17/23 21:26 80 31 H 87 L 08/17/23 21:14 98.2 F 82 34 H 153/125 87 L Additional Findings: HEENT Old aged, average built in no distress, currently on 2 liters oxygen NECK Supple,no thyromegaly, CVS S1+S2 + 0, no murmers RESP Bilateral equal Wheezes heard GIT Soft non tender,non distended Skin, No rah, no Bruises LEGS No Edema PSYCH Normal,m ood, judgement and insight NEURO AOX3, no focal deficit 08/17/23 23:55 Results - Labs Lab/Micro Results: Lab Results-Last 24 Hours 08/17/23 08/17/23 08/17/23 Range/Units 21:40 21:40 21:40 WBC 9.1 (3.98-10.04) x10^3/uL RBC 4.29 (3.93-5.22) x10^6/uL Hgb 13.9 (11.2-15.7) g/dL Hct 42.4 (34.1-44.9) % MCV 98.8 H (79.4-94.8) fL MCH 32.4 H (25.6-32.2) pg MCHC 32.8 (32.2-35.5) g/dL RDW 14.5 H (11.7-14.4) % Plt Count 306 (182-369) x10^3/uL MPV 8.8 L (9.4-12.3) fL Gran % 67.2 (34.0-71.1) % Immature Gran % (Auto) 0.3 (0.001-0.429) % Nucleat RBC Rel Count 0.0 (0.00-0.2) % Eos # (Auto) 1.00 H (0.04-0.36) x10^3/uL Immature Gran # (Auto) 0.03 (0.001-0.031) x10^3u/L Absolute Lymphs (auto) 1.21 (1.18-3.74) x10^3/uL Absolute Monos (auto) 0.67 (0.24-0.86) x10^3/uL Absolute Nucleated RBC 0.00 (0.00-0.012) x10^3u/L Lymphocytes % 13.3 L (19.3-51.7) % Monocytes % 7.4 (4.7-12.5) % Eosinophils % 11.0 H (0.7-5.8) % Basophils % 0.8 (0.1-1.2) % Absolute Granulocytes 6.12 (1.56-6.13) x10^3/uL Basophils # 0.07 (0.01-0.08) x10^3/uL D-Dimer 0.48 (0.0-0.50) mg/L Sodium 142 (135-145) mmol/L Potassium 4.5 (3.5-5.1) mmol/L Chloride 104 (98-107) mmol/L Carbon Dioxide 29 (22-30) mmol/L Anion Gap 12.7 (5-15) MEQ/L BUN 25 H (7-17) mg/dL Creatinine 1.09 H (0.52-1.04) mg/dL Estimated GFR 54.7 ML/MIN Glucose 138 H (74-106) mg/dL Calcium 10.2 (8.4-10.2) mg/dL Magnesium 1.7 (1.6-2.3) mg/dL Total Bilirubin 0.40 (0.2-1.3) mg/dL AST 34 (14-36) U/L ALT 20 (0-35) U/L Alkaline Phosphatase 94 (38-126) U/L Troponin I (0.000-0.033) ng/mL NT-Pro-B Natriuret Pep (<300) pg/mL Serum Total Protein 7.6 (6.3-8.2) g/dL Albumin 4.3 (3.5-5.0) g/dL 08/17/23 08/17/23 Range/Units 21:40 21:40 WBC (3.98-10.04) x10^3/uL RBC (3.93-5.22) x10^6/uL Hgb (11.2-15.7) g/dL Hct (34.1-44.9) % MCV (79.4-94.8) fL MCH (25.6-32.2) pg MCHC (32.2-35.5) g/dL RDW (11.7-14.4) % Plt Count (182-369) x10^3/uL MPV (9.4-12.3) fL Gran % (34.0-71.1) % Immature Gran % (Auto) (0.001-0.429) % Nucleat RBC Rel Count (0.00-0.2) % Eos # (Auto) (0.04-0.36) x10^3/uL Immature Gran # (Auto) (0.001-0.031) x10^3u/L Absolute Lymphs (auto) (1.18-3.74) x10^3/uL Absolute Monos (auto) (0.24-0.86) x10^3/uL Absolute Nucleated RBC (0.00-0.012) x10^3u/L Lymphocytes % (19.3-51.7) % Monocytes % (4.7-12.5) % Eosinophils % (0.7-5.8) % Basophils % (0.1-1.2) % Absolute Granulocytes (1.56-6.13) x10^3/uL Basophils # (0.01-0.08) x10^3/uL D-Dimer (0.0-0.50) mg/L Sodium (135-145) mmol/L Potassium (3.5-5.1) mmol/L Chloride (98-107) mmol/L Carbon Dioxide (22-30) mmol/L Anion Gap (5-15) MEQ/L BUN (7-17) mg/dL Creatinine (0.52-1.04) mg/dL Estimated GFR ML/MIN Glucose (74-106) mg/dL Calcium (8.4-10.2) mg/dL Magnesium (1.6-2.3) mg/dL Total Bilirubin (0.2-1.3) mg/dL AST (14-36) U/L ALT (0-35) U/L Alkaline Phosphatase (38-126) U/L Troponin I < 0.012 (0.000-0.033) ng/mL NT-Pro-B Natriuret Pep 131 (<300) pg/mL Serum Total Protein (6.3-8.2) g/dL Albumin (3.5-5.0) g/dL - Radiology Impressions Radiology Exams & Impressions: Radiology Procedures Category Date Time Status CHEST 1 VIEW (PORTABLE) Stat Exams 08/17/23 21:18 Taken - Other Procedures and Tests Respiratory Therapy 08/17/23 21:26 Respiratory Therapy Assessment DAILY Assessment/Plan (1) COPD exacerbation Current Visit: Yes Status: Acute Code(s): J44.1 - CHRONIC OBSTRUCTIVE PULMONARY DISEASE W (ACUTE) EXACERBATION (2) Shortness of breath Current Visit: No Status: Acute Code(s): R06.02 - SHORTNESS OF BREATH (3) Hypoxia Current Visit: No Status: Acute Code(s): R09.02 - HYPOXEMIA (4) Hyperlipidemia Current Visit: No Status: Acute Code(s): E78.5 - HYPERLIPIDEMIA, UNSPECIFIED Telemedicine Encounter - Telemedicine Encounter Telemedicine Encounter: The entirety of this encounter was performed via Telemedicine" Acute hypoxemic respiratory failure Patient is desaturating up to 87% need to be placed on 2 L oxygen Etiology underlying COPD exacerbation Continue supplemental oxygen to keep sats more than 90% Will get walk test in the morning to evaluate for home oxygen upon discharge Acute COPD exacerbation Chest x-ray remained unremarkable for any infiltrate Continue breathing therapy Will add Pulmicort twice daily Will add steroids prednisone 40 mg daily Will add ceftriaxone 1 g every 24 hours Of note patient is not on home oxygen Hypertension Blood pressure stable Will resume home blood pressure meds including amlodipine + BB hydralazine as per needed for systolic more than 180 Hyperlipidemia will continue home meds GERD Resume home Pepcid DVT prophylaxis SCD/Lovenox CODE STATUS full Discharge pending clinical stability did I have reviewed patient lab vitals and imaging in detail question and concerns were addressed
[2023-08-18] MEDS ORDERED: Zofran 4 MG/2 ML VIAL IV PRN (00:14)
[2023-08-18] MEDS ORDERED: TYLENOL 325 MG PO PRN (00:14)
[2023-08-18] MEDS ORDERED: DUONEB 0.5-3 MG/3 ml Neb IH PRN (01:32)
[2023-08-18] MEDS ORDERED: Tessalon Perles 100 MG PO PRN (01:37)
[2023-08-18] MEDS: Sodium Chloride 0.9% 1000 ML 1,000 ML IV SCH (01:37)
[2023-08-18] MEDS: NICODERM CQ 14 MG TOP SCH (02:45)
[2023-08-18] MEDS: DUONEB 0.5-3 MG/3 ml Neb IH SCH (02:52)
[2023-08-18 05:55] LABS: Hemoglobin 13.5 g/dL (11.2-15.7); Mean Cell Volume 99.1 fL (79.4-94.8); Mean Corpuscular Hemoglobin 31.8 pg (25.6-32.2); Mean Corpuscular Hgb Concent. 32.1 g/dL (32.2-35.5); Mean Platelet Volume 8.8 fL (9.4-12.3); Platelet Count 292 x10^3/uL (182-369); Red Blood Count 4.24 x10^6/uL (3.93-5.22); Red Cell Distribution Width 14.3 % (11.7-14.4); White Blood Count 5.6 x10^3/uL (3.98-10.04)
[2023-08-18] MEDS ORDERED: solu-MEDROL 80 MG, Sterile H2O 10 ml 2 ML IV SCH (06:00)
[2023-08-18 06:13] LABS: ANION GAP 10.6 MEQ/L (5-15); Calcium 9.9 mg/dL (8.4-10.2); Creatinine 1 0.81 mg/dL (0.52-1.04); Potassium 4.3 mmol/L (3.5-5.1)
[2023-08-18] MEDS: PULMICORT 0.5 MG/2 ML RESPULES IH SCH (07:00)
[2023-08-18] MEDS: Advair Hfa 230/21 Mcg COMMON CANISTER IH SCH (07:40)
--- NOTE | 2023-08-18 08:00 | XRAY ---
Indication: Short of breath. Comparison: March 06, 2023 Portable chest remains hyperinflated and clear. Heart not enlarged. Bony thorax intact. No new/acute findings.
--- NOTE | 2023-08-18 08:51 | PCM.DS ---
Discharge Summary Date of Admission: 08/18/23 00:10 Date of Discharge: 08/18/23 Admitting Physician: MIKE SEAMAN MD Primary Care Provider: LIZETH CRUZ Allergies Allergies cat dander Allergy (Severe, Verified 08/17/23 23:24) Shortness of Breath perfume Adverse Reaction (Intermediate, Verified 08/17/23 23:24) Shortness of Breath Hospital Summary - Hospital Course Hospital Course: Anand is a 72 year old female With past medical history significant for hypertension, hyperlipidemia, GERD, active smoker admitted 08/17/23 with COPD exacerbation after experiencing a 1-2 week history of increased dyspnea and productive cough. Patient treated in ED and felt better but was desaturating into the low 80's so therefor was kept overnight for observation. Troponin and BNP unremarkable. CXR did not show any infiltrates. IP treatment with solumedrol, ceftriaxone, duonebs. She is a current everyday smoker- advised cessation for which she states she has quit before and is trying now. Vitals and lab findings stable. Patient anxious for discharge today. Dyspnea has improved. Qualifies for home oxygen -will arrange set up at home. Advised no smoking, discussed dangers of smoking with oxygen in use. She does have a home nebulizer. Discharge Note New Diagnosis: COPD exacerbation New Medications: Augmentin/ medrol dose pack Follow Up: pcp/pulm Latest Assessment & Plan Acute hypoxemic respiratory failure Patient is desaturating up to 87% need to be placed on 2 L oxygen Etiology underlying COPD exacerbation Continue supplemental oxygen to keep sats more than 90% Will get walk test in the morning to evaluate for home oxygen upon discharge Acute COPD exacerbation Chest x-ray remained unremarkable for any infiltrate Continue breathing therapy Will add Pulmicort twice daily Will add steroids prednisone 40 mg daily Will add ceftriaxone 1 g every 24 hours Of note patient is not on home oxygen Hypertension Blood pressure stable Will resume home blood pressure meds including amlodipine + BB hydralazine as per needed for systolic more than 180 Hyperlipidemia will continue home meds GERD Resume home Pepcid I spent 35 minutes [id number] with the patient on the day of discharge performing discharge exam, discussing hospital stay and discharge instructions with patient and caregivers, preparation of discharge records, prescriptions & referral forms and addressing any questions/concerns the patient had as documented above. - Vitals & Intake/Output Vital Signs: Vital Signs Temperature 97.8 F 08/18/23 07:25 Pulse Rate 97 H 08/18/23 07:41 Respiratory Rate 18 08/18/23 07:41 Blood Pressure 120/57 08/18/23 07:25 O2 Sat by Pulse Oximetry 90 L 08/18/23 07:41 Intake & Output: Intake & Output 08/15/23 08/16/23 08/17/23 08/18/23 11:59 11:59 11:59 11:59 Weight 57.8 kg - Lab Result Diagrams: 08/18/23 05:43 08/18/23 05:43 Lab Results-Last 24 Hrs: Lab Results-Last 24 Hours 08/17/23 08/17/23 08/17/23 Range/Units 21:40 21:40 21:40 WBC 9.1 (3.98-10.04) x10^3/uL RBC 4.29 (3.93-5.22) x10^6/uL Hgb 13.9 (11.2-15.7) g/dL Hct 42.4 (34.1-44.9) % MCV 98.8 H (79.4-94.8) fL MCH 32.4 H (25.6-32.2) pg MCHC 32.8 (32.2-35.5) g/dL RDW 14.5 H (11.7-14.4) % Plt Count 306 (182-369) x10^3/uL MPV 8.8 L (9.4-12.3) fL Gran % 67.2 (34.0-71.1) % Immature Gran % (Auto) 0.3 (0.001-0.429) % Nucleat RBC Rel Count 0.0 (0.00-0.2) % Eos # (Auto) 1.00 H (0.04-0.36) x10^3/uL Immature Gran # (Auto) 0.03 (0.001-0.031) x10^3u/L Absolute Lymphs (auto) 1.21 (1.18-3.74) x10^3/uL Absolute Monos (auto) 0.67 (0.24-0.86) x10^3/uL Absolute Nucleated RBC 0.00 (0.00-0.012) x10^3u/L Lymphocytes % 13.3 L (19.3-51.7) % Monocytes % 7.4 (4.7-12.5) % Eosinophils % 11.0 H (0.7-5.8) % Basophils % 0.8 (0.1-1.2) % Absolute Granulocytes 6.12 (1.56-6.13) x10^3/uL Basophils # 0.07 (0.01-0.08) x10^3/uL D-Dimer 0.48 (0.0-0.50) mg/L Sodium 142 (135-145) mmol/L Potassium 4.5 (3.5-5.1) mmol/L Chloride 104 (98-107) mmol/L Carbon Dioxide 29 (22-30) mmol/L Anion Gap 12.7 (5-15) MEQ/L BUN 25 H (7-17) mg/dL Creatinine 1.09 H (0.52-1.04) mg/dL Estimated GFR 54.7 ML/MIN Glucose 138 H (74-106) mg/dL Calcium 10.2 (8.4-10.2) mg/dL Magnesium 1.7 (1.6-2.3) mg/dL Total Bilirubin 0.40 (0.2-1.3) mg/dL AST 34 (14-36) U/L ALT 20 (0-35) U/L Alkaline Phosphatase 94 (38-126) U/L Troponin I (0.000-0.033) ng/mL NT-Pro-B Natriuret Pep (<300) pg/mL Serum Total Protein 7.6 (6.3-8.2) g/dL Albumin 4.3 (3.5-5.0) g/dL 08/17/23 08/17/23 08/18/23 Range/Units 21:40 21:40 01:10 WBC (3.98-10.04) x10^3/uL RBC (3.93-5.22) x10^6/uL Hgb (11.2-15.7) g/dL Hct (34.1-44.9) % MCV (79.4-94.8) fL MCH (25.6-32.2) pg MCHC (32.2-35.5) g/dL RDW (11.7-14.4) % Plt Count (182-369) x10^3/uL MPV (9.4-12.3) fL Gran % (34.0-71.1) % Immature Gran % (Auto) (0.001-0.429) % Nucleat RBC Rel Count (0.00-0.2) % Eos # (Auto) (0.04-0.36) x10^3/uL Immature Gran # (Auto) (0.001-0.031) x10^3u/L Absolute Lymphs (auto) (1.18-3.74) x10^3/uL Absolute Monos (auto) (0.24-0.86) x10^3/uL Absolute Nucleated RBC (0.00-0.012) x10^3u/L Lymphocytes % (19.3-51.7) % Monocytes % (4.7-12.5) % Eosinophils % (0.7-5.8) % Basophils % (0.1-1.2) % Absolute Granulocytes (1.56-6.13) x10^3/uL Basophils # (0.01-0.08) x10^3/uL D-Dimer (0.0-0.50) mg/L Sodium (135-145) mmol/L Potassium (3.5-5.1) mmol/L Chloride (98-107) mmol/L Carbon Dioxide (22-30) mmol/L Anion Gap (5-15) MEQ/L BUN (7-17) mg/dL Creatinine (0.52-1.04) mg/dL Estimated GFR ML/MIN Glucose (74-106) mg/dL Calcium (8.4-10.2) mg/dL Magnesium (1.6-2.3) mg/dL Total Bilirubin (0.2-1.3) mg/dL AST (14-36) U/L ALT (0-35) U/L Alkaline Phosphatase (38-126) U/L Troponin I < 0.012 < 0.012 (0.000-0.033) ng/mL NT-Pro-B Natriuret Pep 131 (<300) pg/mL Serum Total Protein (6.3-8.2) g/dL Albumin (3.5-5.0) g/dL 08/18/23 08/18/23 08/18/23 Range/Units 05:43 05:43 05:43 WBC 5.6 (3.98-10.04) x10^3/uL RBC 4.24 (3.93-5.22) x10^6/uL Hgb 13.5 (11.2-15.7) g/dL Hct 42.0 (34.1-44.9) % MCV 99.1 H (79.4-94.8) fL MCH 31.8 (25.6-32.2) pg MCHC 32.1 L (32.2-35.5) g/dL RDW 14.3 (11.7-14.4) % Plt Count 292 (182-369) x10^3/uL MPV 8.8 L (9.4-12.3) fL Gran % (34.0-71.1) % Immature Gran % (Auto) (0.001-0.429) % Nucleat RBC Rel Count (0.00-0.2) % Eos # (Auto) (0.04-0.36) x10^3/uL Immature Gran # (Auto) (0.001-0.031) x10^3u/L Absolute Lymphs (auto) (1.18-3.74) x10^3/uL Absolute Monos (auto) (0.24-0.86) x10^3/uL Absolute Nucleated RBC (0.00-0.012) x10^3u/L Lymphocytes % (19.3-51.7) % Monocytes % (4.7-12.5) % Eosinophils % (0.7-5.8) % Basophils % (0.1-1.2) % Absolute Granulocytes (1.56-6.13) x10^3/uL Basophils # (0.01-0.08) x10^3/uL D-Dimer (0.0-0.50) mg/L Sodium 139 (135-145) mmol/L Potassium 4.3 (3.5-5.1) mmol/L Chloride 105 (98-107) mmol/L Carbon Dioxide 27 (22-30) mmol/L Anion Gap 10.6 (5-15) MEQ/L BUN 24 H (7-17) mg/dL Creatinine 0.81 (0.52-1.04) mg/dL Estimated GFR 78.0 ML/MIN Glucose 185 H (74-106) mg/dL Calcium 9.9 (8.4-10.2) mg/dL Magnesium (1.6-2.3) mg/dL Total Bilirubin (0.2-1.3) mg/dL AST (14-36) U/L ALT (0-35) U/L Alkaline Phosphatase (38-126) U/L Troponin I < 0.012 (0.000-0.033) ng/mL NT-Pro-B Natriuret Pep (<300) pg/mL Serum Total Protein (6.3-8.2) g/dL Albumin (3.5-5.0) g/dL - Radiology Exams Ordered Rad Exams-Entire Visit: Radiology Procedures Category Date Time Status CHEST 1 VIEW (PORTABLE) Stat Exams 08/17/23 21:18 Completed - Procedures and Test Procedures and Tests throughout Hospitalization: Therapy Orders & Screens 08/17/23 21:26 Respiratory Therapy Assessment DAILY Comment: 08/18/23 00:14 EKG REPEAT IN AM Comment: Oxygen Nasal Cannula 2 lpm Comment: Respiratory Therapy Consult ONCE Comment: Reason For Exam: 08/18/23 00:42 RT Screen per Nursing Assess ONCE Comment: Protocol Order Physician Instructions: Greater than 3 points order RT Admission Screen Reason For Exam: Triggered on Admission Diagnosis: acute exacerbation of COPD Diagnosis: acute exacerbation of COPD Pneumonia: No Home O2: No Asthma: Yes: COPD CHF: No Home CPAP/BIPAP: No Home Nebs/MDI: Yes Total Points: 9 Smoking Cessation Education ONCE Comment: Diagnosis: acute exacerbation of COPD Smoking Status: Current every day smoker How long have you smoked: 50 years Have you smoked in the past 12 months: Yes Approximately how many cigarettes per day: 1/2 pack per day Do you dip or chew tobacco: No 08/18/23 00:53 Respiratory Therapy Assessment DAILY Comment: Diagnosis: acute exacerbation of COPD 08/18/23 08:41 Qualify for Home Oxygen TODAY Comment: Diagnosis: Shortness of breath Discharge Exam General Appearance: no apparent distress Neurologic Exam: alert, oriented x 3, cooperative Eye Exam: PERRL Ears, Nose, Throat Exam: normal ENT inspection Neck Exam: normal inspection Respiratory Exam: diminished breath sounds, wheezing Cardiovascular Exam: regular rate/rhythm, normal heart sounds Pelvic Exam: deferred, normal external exam Rectal Exam: deferred Extremity Exam: normal inspection Skin Exam: normal color Final Diagnosis/Problem List - Final Discharge Diagnosis/Problem (1) Acute respiratory failure with hypoxia Current Visit: Yes Status: Acute Code(s): J96.01 - ACUTE RESPIRATORY FAILURE WITH HYPOXIA (2) COPD exacerbation Current Visit: Yes Status: Chronic Code(s): J44.1 - CHRONIC OBSTRUCTIVE PULM ONARY DISEASE W (ACUTE) EXACERBATION (3) HTN (hypertension) Current Visit: Yes Status: Chronic Code(s): I10 - ESSENTIAL (PRIMARY) HYPERTENSION (4) HLD (hyperlipidemia) Current Visit: Yes Status: Chronic Code(s): E78.5 - HYPERLIPIDEMIA, UNSPECIFIED (5) GERD (gastroesophageal reflux disease) Current Visit: Yes Status: Chronic Code(s): K21.9 - GASTRO-ESOPHAGEAL REFLUX DISEASE WITHOUT ESOPHAGITIS - Discharge Disposition: Home, Self-Care Condition: Stable Prescriptions: New Methylprednisolone Packet [Medrol Dosepack] 4 mg PO UD #1 packet Amox Tr/Potass Clav. 875 mg [Augmentin 875-125 Tablet] 875 mg PO BID 5 Days #10 tablet Continue Alendronate Sodium 70 mg PO WEEKLY Amlodipine Besylate 5 mg PO DAILY Aspirin EC 81 mg [Ecotrin 81 mg] 81 mg PO DAILY Niacin 200 mg PO BID Atorvastatin Calcium [Lipitor] 5 mg PO DAILY Famotidine 20 mg [Pepcid 20 MG] 20 mg PO DAILY Metoprolol Tartrate 50 mg [Lopressor 50 MG] 50 mg PO BID Albuterol Sulfate 1 neb IH Q6H Cyanocobalamin (Vitamin B-12) [Vitamin B12] 1,000 mcg PO DAILY Cholecalciferol (Vitamin D3) [Vitamin D3] 125 mcg PO DAILY Calcium Carbonate [Calcium] 600 mg PO DAILY Fluticasone/Salmeterol 230/21 [Advair Hfa 230/21 Mcg COMMON CANISTER*] 2 puff IH BID 30 Days #1 inhaler Albuterol Sulfate [Albuterol Sulfate Hfa] 2 puff IH Q4HPRN PRN PRN Reason: Shortness Of Breath Follow up with: LIZETH CRUZ [Primary Care Provider] -
[2023-08-18] MEDS ORDERED: NON-FORMULARY ITEM (Cholecalciferol (Vitamin D3) [Vitamin D3] 125 MCG Capsule) PO SCH (10:00)
[2023-08-18] MEDS ORDERED: NIACIN 100 MG PO SCH (10:00)
[2023-08-18] MEDS ORDERED: NON-FORMULARY ITEM (Cyanocobalamin (Vitamin B-12) [Vitamin B12] 2,500 MCG Tablet) PO SCH (10:00)
[2023-08-18] MEDS ORDERED: NON-FORMULARY ITEM (Calcium Carbonate [Calcium] 600 MG Tablet) PO SCH (10:00)
[2023-08-18] MEDS ORDERED: NON-FORMULARY ITEM (Atorvastatin Calcium 10 MG Tablet) PO SCH (10:00)
[2023-08-18] MEDS ORDERED: MEDICATION INTERVENTION MC SCH (10:30)
[2023-08-18] MEDS: ROCEPHIN 1 GM / 100 ML NaCl 1 GM/100 ML IVPB IV SCH (10:35)
[2023-08-18] MEDS: ENOXAPARIN SODIUM SQ SCH (10:35)
[2023-08-18] MEDS: Vitamin B-12 500 MCG PO SCH (10:36)
[2023-08-18] MEDS: NORVASC 5 MG PO SCH (10:36)
[2023-08-18] MEDS: ECOTRIN 81 MG PO SCH (10:36)
[2023-08-18] MEDS: Lopressor 50 MG PO SCH (10:36)
[2023-08-18] MEDS: Zocor 10MG PO SCH (10:37)
[2023-08-18] MEDS: Tums EX 750 MG PO SCH (10:37)
[2023-08-18] MEDS: Pepcid 20 MG PO SCH (10:37)
[2023-08-18] MEDS: solu-MEDROL 60 MG, Sterile H2O 10 ml 2 ML IV SCH (10:38)
[2023-08-18] MEDS: VITAMIN D PO SCH (10:43)
[2023-08-18 11:24] VITALS: BP 121/60; PULSE 82; RESP 21; TEMP 97.1; O2SAT 99
[2023-08-19] MEDS ORDERED: Fosamax 70 MG PO SCH (06:00)
== END 2023-08-18 13:43 | disposition home or self-care (01) ==
LOC: ED 21:10 → MED SURG 08-18 00:10
PROVIDERS: ADMIT Internal Medicine; ATTEND Internal Medicine
DX: J96.01 Acute respiratory failure with hypoxia (principal); J44.1 Chronic obstructive pulmonary disease with (acute) exacerbation; I10 Essential (primary) hypertension; E78.5 Hyperlipidemia, unspecified; K21.9 Gastro-esophageal reflux disease without esophagitis; F17.200 Nicotine dependence, unspecified, uncomplicated; Z79.899 Other long term (current) drug therapy
CPT/HCPCS: 36000; 36415; 71045; 80048; 80053; 83735; 83880; 84484; 85025; 85027; 85379; 87040; 93005; 93041; 94640; 94760; 96374; 99285; G0378; J0696; J1650; J2919; J7609; Q3014; A9270-GY

== ENCOUNTER 2023-11-26 10:38 | Emergency (ER) | payer MEDICARE, OTHER ==
[2023-11-26 10:41] VITALS: TEMP 96.7
[2023-11-26] MEDS ORDERED: ROCEPHIN 1 GM / 100 ML NaCl 1 GM/100 ML IVPB IV ONE (11:05)
[2023-11-26] MEDS ORDERED: Sterile H2O 10 ml IJ ONE (11:05)
[2023-11-26] MEDS ORDERED: solu-MEDROL ONE (11:05)
--- NOTE | 2023-11-26 11:07 | ERPHSYRPT ---
- History of Present Illness Time Seen by Provider: 11/26/23 10:52 Source: patient, EMS Exam Limitations: no limitations Patient Subjective Stated Complaint: pt has been short of breath for 2 days, pt has oxygen at home and is supposed to wear it at night and also has oxygen in her car but has not used either one, cough and runny nose Triage Nursing Assessment: Pt brought self to the ER, hypoxic, denies pain, pt was at 83% on room air and was placed on 2L NC and went to 87% and then placed on 4L NC and went to 95%, hx of COPD, pulses normal, skin n/w/d, thick clear sputum Physician History: Known case of COPD, continues to smoke. Patient is on home oxygen. She says that after few hours he drives me nuts so I did not wear the oxygen last night. I hear there is a increased cough, chest congestion, sputum production and shortness of breath for last 3 to 4 days. Patient drove herself to the ER. Patient lives by herself Timing/Duration: day(s) (4) Activities at Onset: activity Chest Pain Radiation: no radiation Modifying Factors: Improves With: nothing Nitro Today/Relief: no nitro taken today Aspirin Treatment Today: no aspirin today Associated Symptoms: shortness of breath, No nausea, No vomiting, No heartburn, No fever, No headaches Allergies/Adverse Reactions: cat dander Allergy (Severe, Verified 11/26/23 10:48) Shortness of Breath perfume Adverse Reaction (Intermediate, Verified 11/26/23 10:48) Shortness of Breath Home Medications: Alendronate Sodium 70 mg PO WEEKLY 06/09/18 [History] Amlodipine Besylate 5 mg PO DAILY 06/09/18 [History] Aspirin EC 81 mg [Ecotrin 81 mg] 81 mg PO DAILY 12/27/21 [History] Atorvastatin Calcium [Lipitor] 5 mg PO DAILY 12/27/21 [History] Famotidine 20 mg [Pepcid 20 MG] 20 mg PO DAILY 12/27/21 [History] Niacin 200 mg PO BID 12/27/21 [History] Metoprolol Tartrate 50 mg [Lopressor 50 MG] 50 mg PO BID 01/03/22 [History] Albuterol Sulfate 1 neb IH Q6H 03/06/23 [History] Calcium Carbonate [Calcium] 600 mg PO DAILY 03/06/23 [History] Cholecalciferol (Vitamin D3) [Vitamin D3] 125 mcg PO DAILY 03/06/23 [History] Cyanocobalamin (Vitamin B-12) [Vitamin B12] 1,000 mcg PO DAILY 03/06/23 [History] Albuterol Sulfate [Albuterol Sulfate Hfa] 2 puff IH Q4HPRN PRN 08/17/23 [History] Hx Tetanus, Diphtheria Vaccination/Date Given: Yes Hx Influenza Vaccination/Date Given: Yes Hx Pneumococcal Vaccination/Date Given: No Travel Risk - International Travel Have you traveled outside of the country in past 3 weeks: No - Emerging Infectious Disease Are you exhibiting symptoms associated with any current EIDs: Yes Symptoms: Shortness of Breath - Review of Systems Constitutional: No Fever, No Chills Eyes: No Symptoms Ears, Nose, & Throat: No Symptoms Respiratory: Dyspnea, Dyspnea on Exertion (ARENAS), Wheezing, No Cough Cardiac: No Chest Pain, No Edema, No Syncope Abdominal/Gastrointestinal: No Abdominal Pain, No Nausea, No Vomiting, No Diarrhea Genitourinary Symptoms: No Dysuria Musculoskeletal: No Back Pain, No Neck Pain Skin: No Rash Neurological: No Dizziness, No Focal Weakness, No Sensory Changes Psychological: No Symptoms Endocrine: No Symptoms All Other Systems: Reviewed and Negative - Past Medical History Pertinent Past Medical History: Yes Neurological History: No Pertinent History ENT History: No Pertinent History Cardiac History: Arrhythmia, Hypertension Respiratory History: COPD Endocrine Medical History: No Pertinent History Musculoskeletal History: No Pertinent History GI Medical History: Gallbladder Disease History: No Pertinent History Psycho-Social History: No Pertinent History Female Reproductive Disorders: No Pertinent History Other Medical History: tachycardia - Past Surgical History Past Surgical History: Yes Neuro Surgical History: No Pertinent History Cardiac: Cardiac Catheterization Respiratory: No Pertinent History Gastrointestinal: Appendectomy, Cholecystectomy Genitourinary: No Pertinent History Musculoskeletal: No Pertinent History Female Surgical History: Hysterectomy Other Surgical History: release of 1st dorsal compartment, 3 laproscopy female. Significant Family History: no pertinent family hx (No family history pertaining to this admission reported.) - Social History Smoking Status: Current every day smoker How long have you smoked: 50 years Exposure to second hand smoke: Yes Drug Use: none Patient Lives Alone: Yes - Social Determinants of Health Will the patient participate in the screening: Yes Do you worry about a steady place to live?: No Do you have any problems with any of the following?: No known problems In the past 12 months,have you had to go without utilities?: No Transportation Issues: No Has anyone in your support network made you feel unsafe?: No Have you or anyone in your house had to go without enough: No - Nursing Vital Signs Nursing Vital Signs: Initial Vital Signs Temperature 96.7 F 11/26/23 10:39 Pulse Rate 72 11/26/23 10:39 Blood Pressure 121/75 11/26/23 10:39 O2 Sat by Pulse Oximetry 83 L 11/26/23 10:39 Pain Scale Pain Intensity 0 - Physical Exam General Appearance: no apparent distress, alert Eye Exam: PERRL/EOMI, eyes nml inspection Ears, Nose, Throat Exam: normal ENT inspection, moist mucous membranes Neck Exam: normal inspection, non-tender, supple Respiratory Exam: diminished breath sounds, other (Bilateral scattered wheezing), No respiratory distress Cardiovascular Exam: regular rate/rhythm, normal heart sounds, No edema Gastrointestinal/Abdomen Exam: soft, No tenderness, No mass Back Exam: normal inspection, No CVA tenderness, No vertebral tenderness Extremity Exam: normal inspection, normal range of motion Neurologic Exam: alert, oriented x 3, cooperative, normal mood/affect, nml cerebellar function, sensation nml, No motor deficits Skin Exam: normal color, warm, dry Lymphatic Exam: No adenopathy SpO2: 83 - Course EKG Interpreted by Me: Other (Normal sinus rhythm with heart rate of 74. PA interval 141 ms, QT interval 402 ms. No evidence of ischemia. Nothing acute.) - Radiology Exams Chest X-ray Interpretation: Interpreted by me, Negative Ordered Tests: Active Orders 24 hr Category Date Time Status Circulation Analyst STAT Care 11/26/23 10:57 Active EKG-ER Only STAT Care 11/26/23 10:55 Active IV Insertion STAT Care 11/26/23 10:55 Active Oxygen-ED Only Nasal Cannula 4 lpm Care 11/26/23 10:55 Active CHEST 1 VIEW (PORTABLE) Stat Exams 11/26/23 11:06 Completed ARTERIAL BLOOD GASES Urgent Lab 11/26/23 10:55 Completed BLOOD CULTURE Stat Lab 11/26/23 11:17 Received CBC W DIFF Stat Lab 11/26/23 11:00 Completed CMP Stat Lab 11/26/23 11:00 Completed Lactic Acid Stat Lab 11/26/23 10:55 Completed MAGNESIUM Stat Lab 11/26/23 11:00 Completed NT PRO BNPII Stat Lab 11/26/23 11:00 Received TROPONIN Q4H Lab 11/26/23 11:00 Received TROPONIN Q4H Lab 11/26/23 15:00 Ordered TROPONIN Q4H Lab 11/26/23 19:00 Ordered Medication Summary Discontinued Medications Generic Name Dose Route Start Last Admin Trade Name Josie GALINDO Reason Stop Dose Admin Albuterol/Ipratropium 3 ml 11/26/23 10:58 11/26/23 11:23 Ipratropium/Albuterol Sulfate 3 Ml Ampul.Neb IH 11/26/23 10:59 3 ml STAT ONE Administration Albuterol/Ipratropium Confirm 11/26/23 11:22 Ipratropium/Albuterol Sulfate 3 Ml Ampul.Neb Administered 11/26/23 11:23 Dose 3 ml IH .STK-MED ONE Methylprednisolone Sodium 0 mg 11/26/23 10:57 11/26/23 11:11 Succinate 125 mg/ Sterile IV 11/26/23 10:58 125 mg Water 2 ml STAT ONE Administration Ceftriaxone Sodium 1 gm in 100 mls @ 200 mls/hr 11/26/23 10:58 11/26/23 11:11 Rocephin 1 Gm / 100 Ml Nacl IV 11/26/23 11:27 200 mls/hr STAT ONE 200 mls/hr Administration Ceftriaxone Sodium Confirm 11/26/23 11:05 Rocephin 1 Gm / 100 Ml Nacl Administered 11/26/23 11:06 Dose 1 gm in 100 mls @ ud IV .STK-MED ONE Methylprednisolone Sodium Succinate Confirm 11/26/23 11:05 Methylprednis Sod Succ 125 Mg/2 Ml Vial Administered 11/26/23 11:06 Dose 125 mg .ROUTE .STK-MED ONE Sterile Water Confirm 11/26/23 11:05 Water For Injection,Sterile 10 Ml Vial Administered 11/26/23 11:06 Dose 10 ml IJ .STK-MED ONE Lab/Rad Data: Laboratory Result Diagrams 11/26/23 11:00 11/26/23 11:00 Laboratory Results 11/26/23 11/26/23 11/26/23 Range/Units 11:00 11:00 10:55 WBC 7.8 (3.98-10.04) x10^3/uL RBC 4.43 (3.93-5.22) x10^6/uL Hgb 14.1 (11.2-15.7) g/dL Hct 41.2 (34.1-44.9) % MCV 93.0 (79.4-94.8) fL MCH 31.8 (25.6-32.2) pg MCHC 34.2 (32.2-35.5) g/dL RDW 13.6 (11.7-14.4) % Plt Count 339 (182-369) x10^3/uL MPV 9.0 L (9.4-12.3) fL Gran % 79.6 H (34.0-71.1) % Immature Gran % (Auto) 0.1 (0.001-0.429) % Nucleat RBC Rel Count 0.0 (0.00-0.2) % Eos # (Auto) 0.09 (0.04-0.36) x10^3/uL Immature Gran # (Auto) 0.01 (0.001-0.031) x10^3u/L Absolute Lymphs (auto) 0.84 L (1.18-3.74) x10^3/uL Absolute Monos (auto) 0.62 (0.24-0.86) x10^3/uL Absolute Nucleated RBC 0.00 (0.00-0.012) x10^3u/L Lymphocytes % 10.8 L (19.3-51.7) % Monocytes % 8.0 (4.7-12.5) % Eosinophils % 1.2 (0.7-5.8) % Basophils % 0.3 (0.1-1.2) % Absolute Granulocytes 6.21 H (1.56-6.13) x10^3/uL Basophils # 0.02 (0.01-0.08) x10^3/uL Puncture Site RIGHT BRACHIAL pCO2 43 (35-45) mmHg pO2 91 (75-100) mmHg Base Excess 6.0 H (-2.0-2.0) O2 Saturation 95.0 (94-100) g/dF ABG pH 7.46 H (7.35-7.45) ABG HCO3 30.6 H* (22-28) ABG O2 Sat (Measured) 98.7 (95-100) % Colton Test NOT APPLICABLE A-a Gradient 112 a/A Ratio 0.45 Hemoglobin 13.9 Carboxyhemoglobin 2.9 (0.0-6.9) % THgb Methemoglobin 0.8 L (1.4-1.5) % Potassium 4.7 4.6 (3.5-5.1) Temperature 37.0 C POC O2 Flow Rate 36 % Sodium 134 L (135-145) mmol/L Chloride 97 L (98-107) mmol/L Carbon Dioxide 29 (22-30) mmol/L Anion Gap 12.1 (5-15) MEQ/L BUN 15 (7-17) mg/dL Creatinine 0.74 (0.52-1.04) mg/dL Estimated GFR 86.4 ML/MIN Glucose 117 H (74-106) mg/dL Lactic Acid (0.4-2.0) Calcium 10.3 H (8.4-10.2) mg/dL Magnesium 1.7 (1.6-2.3) mg/dL Total Bilirubin 0.60 (0.2-1.3) mg/dL AST 47 H (14-36) U/L ALT 36 H (0-35) U/L Alkaline Phosphatase 131 H (38-126) U/L Serum Total Protein 7.6 (6.3-8.2) g/dL Albumin 4.5 (3.5-5.0) g/dL 11/26/23 Range/Units 10:55 WBC (3.98-10.04) x10^3/uL RBC (3.93-5.22) x10^6/uL Hgb (11.2-15.7) g/dL Hct (34.1-44.9) % MCV (79.4-94.8) fL MCH (25.6-32.2) pg MCHC (32.2-35.5) g/dL RDW (11.7-14.4) % Plt Count (182-369) x10^3/uL MPV (9.4-12.3) fL Gran % (34.0-71.1) % Immature Gran % (Auto) (0.001-0.429) % Nucleat RBC Rel Count (0.00-0.2) % Eos # (Auto) (0.04-0.36) x10^3/uL Immature Gran # (Auto) (0.001-0.031) x10^3u/L Absolute Lymphs (auto) (1.18-3.74) x10^3/uL Absolute Monos (auto) (0.24-0.86) x10^3/uL Absolute Nucleated RBC (0.00-0.012) x10^3u/L Lymphocytes % (19.3-51.7) % Monocytes % (4.7-12.5) % Eosinophils % (0.7-5.8) % Basophils % (0.1-1.2) % Absolute Granulocytes (1.56-6.13) x10^3/uL Basophils # (0.01-0.08) x10^3/uL Puncture Site pCO2 (35-45) mmHg pO2 (75-100) mmHg Base Excess (-2.0-2.0) O2 Saturation (94-100) g/dF ABG pH (7.35-7.45) ABG HCO3 (22-28) ABG O2 Sat (Measured) (95-100) % Colton Test A-a Gradient a/A Ratio Hemoglobin Carboxyhemoglobin (0.0-6.9) % THgb Methemoglobin (1.4-1.5) % Potassium (3.5-5.1) Temperature C POC O2 Flow Rate % Sodium (135-145) mmol/L Chloride (98-107) mmol/L Carbon Dioxide (22-30) mmol/L Anion Gap (5-15) MEQ/L BUN (7-17) mg/dL Creatinine (0.52-1.04) mg/dL Estimated GFR ML/MIN Glucose (74-106) mg/dL Lactic Acid 0.7 (0.4-2.0) Calcium (8.4-10.2) mg/dL Magnesium (1.6-2.3) mg/dL Total Bilirubin (0.2-1.3) mg/dL AST (14-36) U/L ALT (0-35) U/L Alkaline Phosphatase (38-126) U/L Serum Total Protein (6.3-8.2) g/dL Albumin (3.5-5.0) g/dL - Progress Progress: improved Air Movement: good Progress Note: 11/26/23 11:59 Patient is feeling a lot better. Chest is clear. Pulse ox 96% on oxygen. Patient is oxygen at home. Patient continues to smoke but I advised her to quit smoking. Patient does not want to get admitted. I will discharge patient home with antibiotic and steroid. Patient already has nebulizer at home. Blood Culture(s) Obtained: Yes Antibiotics given: Yes Counseled pt/family regarding: lab results, diagnosis, need for follow-up, rad results, smoking cessation Medical Desision Making - Risk of complications Low Risk: Low risk of morbidity from additional dx testing or treatment - Departure Departure Disposition: Home Clinical Impression: COPD exacerbation Condition: Stable Critical Care Time: No Referrals: LIZETH CRUZ [Primary Care Provider] - Follow up/PCP as directed Instructions: Chronic Obstructive Pulmonary Disease Additional Instructions: Stop smoking Prescriptions: Prednisone 10 mg [Deltasone 10 mg] 10 mg PO DAILY #5 tablet Azithromycin 250 mg [Zithromax 250 MG TABLET] 250 mg PO ZPACK #6 tablet
[2023-11-26] MEDS: solu-MEDROL 125 MG, Sterile H2O 10 ml 2 ML IV ONE (11:11)
[2023-11-26] MEDS: ROCEPHIN 1 GM / 100 ML NaCl 1 GM/100 ML IVPB IV ONE (11:11)
[2023-11-26] MEDS ORDERED: DUONEB 0.5-3 MG/3 ml Neb IH ONE (11:22)
[2023-11-26] MEDS: DUONEB 0.5-3 MG/3 ml Neb IH ONE (11:23)
[2023-11-26 11:24] LABS: Absolute Neutrophil Ct (ANC) 6.21 x10^3/uL (1.56-6.13); BASOPHIL % 0.3 % (0.1-1.2); Basophil (Absolute #) 0.02 x10^3/uL (0.01-0.08); Eosinophil % 1.2 % (0.7-5.8); Eosinophil (Absolute #) 0.09 x10^3/uL (0.04-0.36); Hematocrit 41.2 % (34.1-44.9); Hemoglobin 14.1 g/dL (11.2-15.7); IMMATURE GRAN # 0.01 x10^3u/L (0.001-0.031); IMMATURE GRAN % 0.1 % (0.001-0.429); Lymphocyte (Absolute #) 0.84 x10^3/uL (1.18-3.74); Lymphocytes % 10.8 % (19.3-51.7); Mean Corpuscular Hemoglobin 31.8 pg (25.6-32.2); Mean Corpuscular Hgb Concent. 34.2 g/dL (32.2-35.5); Monocyte (Absolute #) 0.62 x10^3/uL (0.24-0.86); Neutrophil % 79.6 % (34.0-71.1); Platelet Count 339 x10^3/uL (182-369); Red Blood Count 4.43 x10^6/uL (3.93-5.22); Red Cell Distribution Width 13.6 % (11.7-14.4); White Blood Count 7.8 x10^3/uL (3.98-10.04)
[2023-11-26 11:29] LABS: A-aADO2 112; ABG HEMOGLOBIN 13.9; ABG POTASSIUM 4.6 (3.5-5.1); ARTERIAL BLD GAS O2 SATURATION 98.7 % (95-100); ARTERIAL BLOOD GAS FIO2 36 %; ARTERIAL BLOOD GAS PCO2 43 mmHg (35-45); ARTERIAL BLOOD GAS PO2 91 mmHg (75-100); ARTERIAL BLOOD GAS pH 7.46 (7.35-7.45); CARBOXYHEMOGLOBIN 2.9 % THgb (0.0-6.9); HCO3- 30.6 (22-28); Methhemoglobin 0.8 % (1.4-1.5); paO2 pAO1 0.45
[2023-11-26 11:30] LABS: ABG SITE RIGHT BRACHIAL
[2023-11-26 11:36] LABS: ALBUMIN 4.5 g/dL (3.5-5.0); ANION GAP 12.1 MEQ/L (5-15); BILIRUBIN,TOTAL 0.6 mg/dL (0.2-1.3); Calcium 10.3 mg/dL (8.4-10.2); Creatinine 1 0.74 mg/dL (0.52-1.04); EST GLOMERULAR FILTRATION RATE 86.4 ML/MIN; MAGNESIUM 1.7 mg/dL (1.6-2.3); Potassium 4.7 mmol/L (3.5-5.1); Total Protein 7.6 g/dL (6.3-8.2)
--- NOTE | 2023-11-26 11:42 | XRAY ---
Indication: Short of breath. COPD. Comparison: August 17, 2023 Portable chest remains hyperinflated and clear. Heart not enlarged. Bony thorax intact. No new/acute findings.
[2023-11-26 11:48] LABS: NT PRO BNPII 152 pg/mL (<300); TROPONIN < 0.012 ng/mL (0.000-0.033)
[2023-11-26 12:21] VITALS: RESP 16
[2023-11-26 13:04] VITALS: BP 158/81; PULSE 85; O2SAT 93
== END 2023-11-26 13:07 | disposition home or self-care (01) ==
LOC: ED 10:38
DX: J44.1 Chronic obstructive pulmonary disease with (acute) exacerbation (principal); R05.9 Cough, unspecified; R06.02 Shortness of breath; I10 Essential (primary) hypertension; Z79.899 Other long term (current) drug therapy; Z72.0 Tobacco use; Z99.81 Dependence on supplemental oxygen
CPT/HCPCS: 36000; 36415; 36600; 71045; 80053; 82375; 82803; 83605; 83735; 83880; 84484; 85025; 87040; 93005; 93041; 94640; 96365; 96374; 99284; J0696; J2919; A9270-GY

== ENCOUNTER 2024-05-13 20:35 | Observation (INO) | payer MEDICARE, OTHER ==
[2024-05-13] MEDS ORDERED: DUONEB 0.5-3 MG/3 ml Neb IH ONE (20:38)
[2024-05-13] MEDS: DUONEB 0.5-3 MG/3 ml Neb IH ONE (20:40)
--- NOTE | 2024-05-13 21:14 | ERPHSYRPT ---
- History of Present Illness Time Seen by Provider: 05/13/24 20:50 Source: patient Exam Limitations: no limitations Patient Subjective Stated Complaint: shortness of breath....it got alot worse tonight. Triage Nursing Assessment: Pt brought back in wheelchair to ER room 2. Pt c/o shortness of breath. Pt hasn't felt good x2 days, but became much more sob this evening despite using her inhaler several times today and taking breathing treatments. Lungs are diminished and has wheezes noted bilat ant/post. Pt has prod cough with scant amt of thick, clear sputum. Pt denies any chest pain, pt is afebrile. Physician History: 73-year-old female history of COPD current smoker requires 2 L nasal cannula at home presents to our ED for evaluation of shortness of breath. Patient states that shortness of breath has been ongoing for approximately 2 days. Patient self treated with her albuterol inhaler however states that symptoms did not significantly improved. Patient has a cough that is productive. Patient descr ibes thick clear sputum. No associated fever no nausea no vomiting no diarrhea no rash. Symptoms are moderate in intensity. Symptoms are worse with exertion. Symptoms improved with rest. Patient voices no other complaints or concerns at this time. Portions of this note were created with voice recognition technology. There may be grammatical, spelling, punctuation or sound alike errors Timing/Duration: day(s) (2 to 3 days) Activities at Onset: activity Severity of Dyspnea-Max: moderate Severity of Dyspnea-Current: moderate Possible Cause: occasional episodes Modifying Factors: Improves With: activity Associated Symptoms: cough Allergies/Adverse Reactions: cat dander Allergy (Severe, Verified 05/13/24 20:49) Shortness of Breath perfume Adverse Reaction (Intermediate, Verified 05/13/24 20:49) Shortness of Breath Home Medications: Alendronate Sodium 70 mg PO GRADY 06/09/18 [History] Amlodipine Besylate 5 mg PO DAILY 06/09/18 [History] Aspirin EC 81 mg [Ecotrin 81 mg] 81 mg PO DAILY 12/27/21 [History] Atorvastatin Calcium [Lipitor] 5 mg PO HS 12/27/21 [History] Famotidine 20 mg [Pepcid 20 MG] 20 mg PO DAILY 12/27/21 [History] Niacin 200 mg PO DAILY 12/27/21 [History] Metoprolol Tartrate 50 mg [Lopressor 50 MG] 50 mg PO BID 01/03/22 [History] Albuterol Sulfate 1 neb IH Q6H PRN PRN 03/06/23 [History] Calcium Carbonate [Calcium] 600 mg PO DAILY 03/06/23 [History] Cholecalciferol (Vitamin D3) [Vitamin D3] 125 mcg PO SUMOWEFR 03/06/23 [History] Cyanocobalamin (Vitamin B-12) [Vitamin B12] 1,000 mcg PO DAILY 03/06/23 [History] Albuterol Sulfate [Albuterol Sulfate Hfa] 2 puff IH Q4HPRN PRN 08/17/23 [History] Hx Tetanus, Diphtheria Vaccination/Date Given: Yes Hx Influenza Vaccination/Date Given: Yes Hx Pneumococcal Vaccination/Date Given: Yes Travel Risk - International Travel Have you traveled outside of the country in past 3 weeks: No - Emerging Infectious Disease Are you exhibiting symptoms associated with any current EIDs: Yes Symptoms: Cough: New Onset, Headaches/Body Aches/, Shortness of Breath - Review of Systems Constitutional: No Symptoms, No Fever, No Chills Eyes: No Symptoms Ears, Nose, & Throat: No Symptoms Respiratory: No Symptoms, No Cough, No Dyspnea Cardiac: No Symptoms, No Chest Pain, No Edema, No Syncope Abdominal/Gastrointestinal: No Symptoms, No Abdominal Pain, No Nausea, No Vomiting, No Diarrhea Genitourinary Symptoms: No Symptoms, No Dysuria Musculoskeletal: No Symptoms, No Back Pain, No Neck Pain Skin: No Symptoms, No Rash Neurological: No Symptoms, No Dizziness, No Focal Weakness, No Sensory Changes Psychological: No Symptoms Endocrine: No Symptoms Hematologic/Lymphatic: No Symptoms Immunological/Allergic: No Symptoms All Other Systems: Reviewed and Negative - Past Medical History Pertinent Past Medical History: Yes Neurological History: No Pertinent History ENT History: No Pertinent History Cardiac History: Arrhythmia, High Cholesterol, Hypertension Respiratory History: Bronchitis, COPD Endocrine Medical History: No Pertinent History Musculoskeletal History: No Pertinent History GI Medical History: Gallbladder Disease History: No Pertinent History Psycho-Social History: No Pertinent History Female Reproductive Disorders: No Pertinent History Other Medical History: tachycardia - Past Surgical History Past Surgical History: Yes Neuro Surgical History: No Pertinent History Cardiac: Cardiac Catheterization Respiratory: No Pertinent History Gastrointestinal: Appendectomy, Cholecystectomy Genitourinary: No Pertinent History Musculoskeletal: No Pertinent History Female Surgical History: Hysterectomy Other Surgical History: release of 1st dorsal compartment, 3 laproscopy female. Significant Family History: no pertinent family hx (No family history pertaining to this admission reported.) - Social History Smoking Status: Current every day smoker How long have you smoked: 50 yrs Exposure to second hand smoke: Yes Drug Use: none - Social Determinants of Health Will the patient participate in the screening: Yes Do you worry about a steady place to live?: No Do you have any problems with any of the following?: No known problems In the past 12 months,have you had to go without utilities?: No Transportation Issues: No Has anyone in your support network made you feel unsafe?: No Have you or anyone in your house had to go w/o enough food: No - Nursing Vital Signs Nursing Vital Signs: Initial Vital Signs Pulse Rate 65 05/13/24 20:35 Respiratory Rate 24 05/13/24 20:35 Blood Pressure 163/92 05/13/24 20:35 O2 Sat by Pulse Oximetry 96 05/13/24 20:35 Pain Scale Pain Intensity 0 - Physical Exam General Appearance: no apparent distress, alert Eye Exam: PERRL/EOMI, eyes nml inspection Ears, Nose, Throat Exam: hearing grossly normal, normal ENT inspection Neck Exam: normal inspection, supple Respiratory Exam: diminished breath sounds, rhonchi, wheezing Cardiovascular/Chest Exam: normal heart sounds, regular rate/rhythm Abdominal/Gastrointestinal Exam: soft, No tenderness, No distention, No mass Extremity Exam: non-tender, normal range of motion, normal inspection, no calf tenderness, no pedal edema Neurologic Exam: alert, oriented x 3, cooperative, 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 as tested, sensation nml, No motor deficits Skin Exam: normal color, warm, No dry Lymphatic Exam: No adenopathy SpO2 Interpretation: normal SpO2: 92 O2 Delivery: Room Air - Course Nursing assessment & vital signs reviewed: Yes EKG Interpreted by Me: RATE (72), Sinus Rhythm, NORMAL AXIS, NORMAL INTERVALS, NORMAL QRS - Radiology Exams Chest X-ray Interpretation: Interpreted by me (No acute finding) Ordered Tests: Active Orders 24 hr Category Date Time Status Firebreak Cutter STAT Care 05/13/24 20:52 Active EKG-ER Only STAT Care 05/13/24 20:52 Active IV Insertion STAT Care 05/13/24 20:52 Active Pulse Oximetry (ED) STAT Care 05/13/24 20:52 Active CHEST 1 VIEW (PORTABLE) Stat Exams 05/13/24 22:11 Taken BLOOD CULTURE Stat Lab 05/13/24 21:11 Received CBC W DIFF Stat Lab 05/13/24 21:05 Completed CMP Stat Lab 05/13/24 21:05 Completed D-DIMER QUANTITATIVE Stat Lab 05/13/24 21:05 Completed TROPONIN Q4H Lab 05/13/24 21:05 Completed TROPONIN Q4H Lab 05/14/24 01:00 Ordered TROPONIN Q4H Lab 05/14/24 05:00 Ordered UA W/RFX UR CULTURE Stat Lab 05/13/24 21:38 Completed Respiratory Therapy Assessment DAILY RT 05/13/24 20:40 Active Transfer Order Routine Transfer 05/13/24 Ordered Medication Summary Discontinued Medications Generic Name Dose Route Start Last Admin Trade Name Freq PRN Reason Stop Dose Admin Albuterol/Ipratropium 3 ml 05/13/24 20:39 05/13/24 20:40 Ipratropium/Albuterol Sulfate 3 Ml Ampul.Neb IH 05/13/24 20:40 3 ml STAT ONE Administration Albuterol/Ipratropium Confirm 05/13/24 20:38 Ipratropium/Albuterol Sulfate 3 Ml Ampul.Neb Administered 05/13/24 20:39 Dose 3 ml IH .STK-MED ONE Azithromycin Confirm 05/13/24 22:22 Azithromycin Inj Administered 05/13/24 22:23 Dose 500 mg IV .STK-MED ONE Methylprednisolone Sodium 0 mg 05/13/24 20:52 05/13/24 21:44 Succinate 125 mg/ Sterile IV 05/13/24 20:53 125 mg Water 2 ml STAT ONE Administration Ceftriaxone Sodium 2 gm in 100 mls @ 200 mls/hr 05/13/24 21:18 05/13/24 22:24 Rocephin 2 Gm/100 Ml Nacl IV 05/13/24 21:47 Infused STAT ONE Infusion Azithromycin 500 mg/ Sodium 250 mls @ 250 mls/hr 05/13/24 21:18 05/13/24 22:24 Chloride IV 05/13/24 22:17 250 mls/hr STAT STA 250 mls/hr Administration Ceftriaxone Sodium Confirm 05/13/24 21:42 Rocephin 2 Gm/100 Ml Nacl Administered 05/13/24 21:43 Dose 2 gm in 100 mls @ ud IV .STK-MED ONE Sodium Chloride Confirm 05/13/24 22:22 Sodium Chloride 0.9% 250 Ml Administered 05/13/24 22:23 Dose 250 mls @ ud IV .STK-MED ONE Methylprednisolone Sodium Succinate Confirm 05/13/24 21:42 Methylprednis Sod Succ 125 Mg/2 Ml Vial Administered 05/13/24 21:43 Dose 125 mg .ROUTE .STK-MED ONE Sterile Water Confirm 05/13/24 21:42 Water For Injection,Sterile 10 Ml Vial Administered 05/13/24 21:43 Dose 10 ml IJ .STK-MED ONE Lab/Rad Data: Laboratory Result Diagrams 05/13/24 21:05 05/13/24 21:05 Laboratory Results 05/13/24 05/13/24 05/13/24 Range/Units 21:38 21:05 21:05 WBC (3.98-10.04) x10^3/uL RBC (3.93-5.22) x10^6/uL Hgb (11.2-15.7) g/dL Hct (34.1-44.9) % MCV (79.4-94.8) fL MCH (25.6-32.2) pg MCHC (32.2-35.5) g/dL RDW (11.7-14.4) % Plt Count (182-369) x10^3/uL MPV (9.4-12.3) fL Gran % (34.0-71.1) % Immature Gran % (Auto) (0.001-0.429) % Nucleat RBC Rel Count (0.00-0.2) % Eos # (Auto) (0.04-0.36) x10^3/uL Immature Gran # (Auto) (0.001-0.031) x10^3u/L Absolute Lymphs (auto) (1.18-3.74) x10^3/uL Absolute Monos (auto) (0.24-0.86) x10^3/uL Absolute Nucleated RBC (0.00-0.012) x10^3u/L Lymphocytes % (19.3-51.7) % Monocytes % (4.7-12.5) % Eosinophils % (0.7-5.8) % Basophils % (0.1-1.2) % Absolute Granulocytes (1.56-6.13) x10^3/uL Basophils # (0.01-0.08) x10^3/uL D-Dimer 0.31 (0.0-0.50) mg/L Sodium (135-145) mmol/L Potassium (3.5-5.1) mmol/L Chloride (98-107) mmol/L Carbon Dioxide (22-30) mmol/L Anion Gap (5-15) MEQ/L BUN (7-17) mg/dL Creatinine (0.52-1.04) mg/dL Estimated GFR ML/MIN Glucose (74-106) mg/dL Calcium (8.4-10.2) mg/dL Total Bilirubin (0.2-1.3) mg/dL AST (14-36) U/L ALT (0-35) U/L Alkaline Phosphatase (38-126) U/L Troponin I < 0.012 (0.000-0.033) ng/mL Serum Total Protein (6.3-8.2) g/dL Albumin (3.5-5.0) g/dL Urine Color Yellow (Yellow) Urine Appearance Clear (Clear) Urine pH 6.5 (4.6-8.0) Ur Specific [place] 1.015 (1.005-1.030) Urine Protein 100 A (Negative) Urine Glucose (UA) Negative (Negative) mg/dL Urine Ketones Negative (Negative) Urine Blood Negative (Negative) Urine Nitrite Negative (Negative) Urine Bilirubin Negative (Negative) Urine Urobilinogen 1.0 A (0.2) mg/dL Ur Leukocyte Esterase Negative (Negative) U Hyaline Cast (Auto) NONE SEEN (0-2) /LPF Urine Microscopic RBC 0-2 (0-5) /HPF Urine Microscopic WBC 0-2 (0-5) /HPF Ur Epithelial Cells None Seen (None Seen) /HPF Urine Bacteria None Seen (None Seen) /HPF Urine Culture Reflexed NO (NO) Influenza Type A Ag (NEGATIVE) Influenza Type B Ag (NEGATIVE) RSV (PCR) (NEGATIVE) SARS-CoV-2 (PCR) (NEGATIVE) 05/13/24 05/13/24 05/13/24 Range/Units 21:05 21:05 20:50 WBC 9.5 (3.98-10.04) x10^3/uL RBC 4.43 (3.93-5.22) x10^6/uL Hgb 14.0 (11.2-15.7) g/dL Hct 41.9 (34.1-44.9) % MCV 94.6 (79.4-94.8) fL MCH 31.6 (25.6-32.2) pg MCHC 33.4 (32.2-35.5) g/dL RDW 14.2 (11.7-14.4) % Plt Count 310 (182-369) x10^3/uL MPV 8.7 L (9.4-12.3) fL Gran % 79.0 H (34.0-71.1) % Immature Gran % (Auto) 0.3 (0.001-0.429) % Nucleat RBC Rel Count 0.0 (0.00-0.2) % Eos # (Auto) 0.61 H (0.04-0.36) x10^3/uL Immature Gran # (Auto) 0.03 (0.001-0.031) x10^3u/L Absolute Lymphs (auto) 0.65 L (1.18-3.74) x10^3/uL Absolute Monos (auto) 0.59 (0.24-0.86) x10^3/uL Absolute Nucleated RBC 0.00 (0.00-0.012) x10^3u/L Lymphocytes % 6.9 L (19.3-51.7) % Monocytes % 6.2 (4.7-12.5) % Eosinophils % 6.5 H (0.7-5.8) % Basophils % 1.1 (0.1-1.2) % Absolute Granulocytes 7.47 H (1.56-6.13) x10^3/uL Basophils # 0.10 H (0.01-0.08) x10^3/uL D-Dimer (0.0-0.50) mg/L Sodium 137 (135-145) mmol/L Potassium 5.2 H (3.5-5.1) mmol/L Chloride 96 L (98-107) mmol/L Carbon Dioxide 33 H (22-30) mmol/L Anion Gap 13.0 (5-15) MEQ/L BUN 18 H (7-17) mg/dL Creatinine 0.86 (0.52-1.04) mg/dL Estimated GFR 72.2 ML/MIN Glucose 146 H (74-106) mg/dL Calcium 10.5 H (8.4-10.2) mg/dL Total Bilirubin 0.50 (0.2-1.3) mg/dL AST 28 (14-36) U/L ALT 19 (0-35) U/L Alkaline Phosphatase 83 (38-126) U/L Troponin I (0.000-0.033) ng/mL Serum Total Protein 7.3 (6.3-8.2) g/dL Albumin 4.7 (3.5-5.0) g/dL Urine Color (Yellow) Urine Appearance (Clear) Urine pH (4.6-8.0) Ur Specific [place] (1.005-1.030) Urine Protein (Negative) Urine Glucose (UA) (Negative) mg/dL Urine Ketones (Negative) Urine Blood (Negative) Urine Nitrite (Negative) Urine Bilirubin (Negative) Urine Urobilinogen (0.2) mg/dL Ur Leukocyte Esterase (Negative) U Hyaline Cast (Auto) (0-2) /LPF Urine Microscopic RBC (0-5) /HPF Urine Microscopic WBC (0-5) /HPF Ur Epithelial Cells (None Seen) /HPF Urine Bacteria (None Seen) /HPF Urine Culture Reflexed (NO) Influenza Type A Ag NEGATIVE (NEGATIVE) Influenza Type B Ag NEGATIVE (NEGATIVE) RSV (PCR) NEGATIVE (NEGATIVE) SARS-CoV-2 (PCR) NEGATIVE (NEGATIVE) - Progress Progress: improved Air Movement: good Progress Note: 73-year-old female presents to emergency department for evaluation of shortness of breath. Patient is a current smoker history of COPD. Upon arrival patient was 70% on 2 L nasal cannula. Patient is shortness of breath similar to her previous COPD exacerbations. Physical exam reveals wheezing diminished and coarse breath sounds. Patient received DuoNeb treatment. Symptoms improved. Patient received 125 mg of Solu-Medrol. Blood cultures obtained antibiotics administered. Patient reassessed. Symptoms improved but not resolved. Patient not ready for discharge. Patient will require further evaluation and treatment. Case discussed with Dr. Rojo hospitalist who accepts admission to observation at 9:30 PM. Plan of care discussed with patient. She agrees to admission at [facility] for further evaluation and treatment. D-dimer negative. Troponin negative. Portions of this note were created with voice recognition technology. There may be grammatical, spelling, punctuation or sound alike errors Complexity of problem addressed is moderate acute complicated. No critical care time. Complex of data reviewed and analyzed is extensive. Test ordered chest reviewed results analyzed and correlated clinically with history and physical exam. Management discussed with hospitalist who accepts admission to [facility]. Risk of complication and or risk of morbidity/mortality of patient management is high. Patient requires hospitalization for further evaluation and treatment. Vital stable. Time spent admit patient is approximately 20 minutes. Plan of care established for shared decision making. No social de terminants of health present to impede follow-up. Portions of this note were created with voice recognition technology. There may be grammatical, spelling, punctuation or sound alike errors 05/13/24 22:55 Blood Culture(s) Obtained: Yes Antibiotics given: Yes Counseled pt/family regarding: diagnosis, need for follow-up - Departure Departure Disposition: Observation Clinical Impression: COPD exacerbation, Hypoxia, SOB (shortness of breath) Condition: Stable Critical Care Time: No Referrals: LIZETH CRUZ [Primary Care Provider] - Follow up/PCP as directed Instructions: Chronic Obstructive Pulmonary Disease
[2024-05-13 21:15] LABS: Absolute Neutrophil Ct (ANC) 7.47 x10^3/uL (1.56-6.13); BASOPHIL % 1.1 % (0.1-1.2); Eosinophil % 6.5 % (0.7-5.8); Eosinophil (Absolute #) 0.61 x10^3/uL (0.04-0.36); Hematocrit 41.9 % (34.1-44.9); IMMATURE GRAN # 0.03 x10^3u/L (0.001-0.031); IMMATURE GRAN % 0.3 % (0.001-0.429); Lymphocyte (Absolute #) 0.65 x10^3/uL (1.18-3.74); Lymphocytes % 6.9 % (19.3-51.7); Mean Cell Volume 94.6 fL (79.4-94.8); Mean Corpuscular Hemoglobin 31.6 pg (25.6-32.2); Mean Corpuscular Hgb Concent. 33.4 g/dL (32.2-35.5); Mean Platelet Volume 8.7 fL (9.4-12.3); Monocyte (Absolute #) 0.59 x10^3/uL (0.24-0.86); Monocytes % 6.2 % (4.7-12.5); Platelet Count 310 x10^3/uL (182-369); Red Blood Count 4.43 x10^6/uL (3.93-5.22); Red Cell Distribution Width 14.2 % (11.7-14.4); White Blood Count 9.5 x10^3/uL (3.98-10.04)
[2024-05-13 21:36] LABS: ALBUMIN 4.7 g/dL (3.5-5.0); BILIRUBIN,TOTAL 0.5 mg/dL (0.2-1.3); Calcium 10.5 mg/dL (8.4-10.2); Creatinine 1 0.86 mg/dL (0.52-1.04); EST GLOMERULAR FILTRATION RATE 72.2 ML/MIN; Potassium 5.2 mmol/L (3.5-5.1); Total Protein 7.3 g/dL (6.3-8.2)
[2024-05-13 21:39] LABS: INFLUENZA A NEGATIVE (NEGATIVE); INFLUENZA B NEGATIVE (NEGATIVE); RESPIRATORY SYNCTIAL VIRUS NEGATIVE (NEGATIVE); SARS-CoV-2 Xpert Express NEGATIVE (NEGATIVE)
[2024-05-13] MEDS ORDERED: solu-MEDROL ONE (21:42)
[2024-05-13] MEDS ORDERED: ROCEPHIN 2 GM/100 ML NACL 2 GM/100 ML IVPB IV ONE (21:42)
[2024-05-13] MEDS ORDERED: Sterile H2O 10 ml IJ ONE (21:42)
[2024-05-13] MEDS: solu-MEDROL 125 MG, Sterile H2O 10 ml 2 ML IV ONE (21:44)
[2024-05-13] MEDS: ROCEPHIN 2 GM/100 ML NACL 2 GM/100 ML IVPB IV ONE (21:46)
[2024-05-13 22:00] LABS: Appearance Clear (Clear); Bacteria None Seen /HPF (None Seen); Bilirubin Negative (Negative); Blood Negative (Negative); Epithelial Cells None Seen /HPF (None Seen); Glucose, Urine Negative (Negative); Hyaline Casts NONE SEEN /LPF (0-2); Ketones Negative (Negative); Leukocyte Esterase Negative (Negative); Nitrite Negative (Negative); Ph 6.5 (4.6-8.0); Protein,Urine Dip 100 (Negative); RBC 0-2 /HPF (0-5); Specific Gravity 1.015 (1.005-1.030); WBC 0-2 /HPF (0-5)
[2024-05-13] MEDS ORDERED: ZITHROMAX IV IV ONE (22:22)
[2024-05-13] MEDS ORDERED: Sodium Chloride 0.9% 250 ML 250 ML IV ONE (22:22)
[2024-05-13] MEDS: ZITHROMAX IV*** 500 MG in Sodium Chloride 0.9% 250 ML 250 ML IV STA (22:24)
[2024-05-14] MEDS ORDERED: DUONEB 0.5-3 MG/3 ml Neb IH ONE (00:46)
[2024-05-14] MEDS: DUONEB 0.5-3 MG/3 ml Neb IH SCH (00:57)
[2024-05-14] MEDS ORDERED: Robitussin-Dm Syrup PO PRN (02:41)
[2024-05-14] MEDS ORDERED: TYLENOL 325 MG PO PRN (02:41)
--- NOTE | 2024-05-14 02:49 | PCM.HP ---
History of Present Illness - Chief Complaint Chief Complaint: shortness of breath Date: 05/14/24 History of Present Illness: 73-year-old woman with history of COPD on PRN oxygen at home, tobacco use, hypertension, who presents with dyspnea. Patient is that she has had some progressive dyspnea for a few days, which she was managing with her nebulizers as well as using her PRN oxygen at night, at 3 L. However, this evening, her dyspnea became suddenly worse, not relieved by her nebulizer. She has had some intermittent cough along with this, but no fever, no sputum production. She has noted some mild wheezing. Denies any sick contacts, myalgias, or diarrhea. Does not recall her last hospitalization for COPD. She continues to smoke intermittently, about 1/2 pack/day. - Review of Systems All Other Systems: Reviewed and Negative Medications & Allergies Home Medications: Home Medication List Alendronate Sodium 70 mg PO GRADY 06/09/18 [History Confirmed 05/14/24] Amlodipine Besylate 5 mg PO DAILY 06/09/18 [History Confirmed 05/14/24] Aspirin EC 81 mg [Ecotrin 81 mg] 81 mg PO DAILY 12/27/21 [History Confirmed 05/14/24] Atorvastatin Calcium [Lipitor] 5 mg PO HS 12/27/21 [History Confirmed 05/14/24] Famotidine 20 mg [Pepcid 20 MG] 20 mg PO DAILY 12/27/21 [History Confirmed 05/14/24] Niacin 200 mg PO DAILY 12/27/21 [History Confirmed 05/14/24] Metoprolol Tartrate 50 mg [Lopressor 50 MG] 50 mg PO BID 01/03/22 [History Confirmed 05/14/24] Albuterol Sulfate 1 neb IH Q6H PRN PRN 03/06/23 [History Confirmed 05/14/24] Calcium Carbonate [Calcium] 600 mg PO DAILY 03/06/23 [History Confirmed 05/14/24] Cholecalciferol (Vitamin D3) [Vitamin D3] 125 mcg PO SUMOWEFR 03/06/23 [History Confirmed 05/14/24] Cyanocobalamin (Vitamin B-12) [Vitamin B12] 1,000 mcg PO DAILY 03/06/23 [History Confirmed 05/14/24] Albuterol Sulfate [Albuterol Sulfate Hfa] 2 puff IH Q4HPRN PRN 08/17/23 [History Confirmed 05/14/24] Allergies/Adverse Reactions: Allergies Allergy/AdvReac Type Severity Reaction Status Date / Time cat dander Allergy Severe Shortness Verified 05/14/24 00:40 of Breath perfume AdvReac Intermediate Shortness Verified 05/14/24 00:40 of Breath - Past Medical History Past Medical History: Yes Neurological History: No Pertinent History ENT History: No Pertinent History Cardiac History: Arrhythmia, High Cholesterol, Hypertension Respiratory History: Bronchitis, COPD Endocrine Medical History: No Pertinent History Musculoskelatal History: No Pertinent History GI Medical History: Gallbladder Disease History: No Pertinent History Pyscho-Social History: No Pertinent History Reproductive Disorders: No Pertinent History Comment: tachycardia - Past Surgical History Past Surgical History: Yes Neuro Surgical History: No Pertinent History Cardiac History: Cardiac Catheterization Respiratory Surgery: No Pertinent History GI Surgical History: Appendectomy, Cholecystectomy Genitourinary Surgical Hx: No Pertinent History Musculskeletal Surgical Hx: No Pertinent History Female Surgical History: Hysterectomy Other Surgical History: release of 1st dorsal compartment, 3 laproscopy female. Significant Family History: no pertinent family hx (No family history pertaining to this admission reported.) - Social History Smoking Status: Current every day smoker How long have you smoked: 50yrs Exposure to second hand smoke: No Alcohol: Occasionally Drug Use: none - Social Determinants of Health Will the patient participate in the screening: Yes Do you worry about a steady place to live?: No Do you have any problems with any of the following?: No known problems In the past 12 months,have you had to go without utilities?: No Have you or anyone in your house had to go without enough: No Transportation Issues: No Has anyone in your support network made you feel unsafe?: No Does the patient want assistance with any of the above?: No - Physical Exam Vital Signs: Vital Signs - 24 hr Temp Pulse Resp BP BP Pulse Ox 05/14/24 00:59 91 L 05/14/24 00:57 75 20 97 05/14/24 00:19 97.6 F 72 22 136/63 92 L 05/14/24 00:10 97.6 F 72 22 136/63 92 L 05/13/24 23:02 92 L 03/25/25 23:00 62 14 124/68 95 05/13/24 22:30 68 23 137/69 94 L 05/13/24 22:00 70 21 150/74 89 L 05/13/24 21:36 75 28 H 137/89 87 L 05/13/24 21:35 83 21 91 L 05/13/24 21:00 73 22 133/71 94 L 05/13/24 20:52 96 05/13/24 20:41 30 H 92 L 05/13/24 20:40 69 26 H 92 L 05/13/24 20:36 98.5 F 74 38 H 163/92 78 L 05/13/24 20:35 65 24 163/92 96 Physical Exam GEN: Sitting up in bed in no acute distress. HENT: Normocephalic, atraumatic. Moist mucous membranes. EYES: Normal inspection, anicteric sclera, extraocular movements intact. NECK: Supple, full range of motion CV: Regular rate and rhythm, no murmurs, no gallops. No JVD or edema. PULM: Mild diffuse expiratory wheezes. On 3 L oxygen nasal cannula. No work of breathing. ABD: Nondistended, nontender. MSK: No joint effusions, full range of motion SKIN: No rashes, normal color. NEURO: Face symmetric, no focal motor or sensory deficits. PSYCH: Alert, oriented x 3. Flat affect Results - Labs Lab/Micro Results: Lab Results-Last 24 Hours 05/13/24 05/13/24 05/13/24 Range/Units 20:50 21:05 21:05 WBC 9.5 (3.98-10.04) x10^3/uL RBC 4.43 (3.93-5.22) x10^6/uL Hgb 14.0 (11.2-15.7) g/dL Hct 41.9 (34.1-44.9) % MCV 94.6 (79.4-94.8) fL MCH 31.6 (25.6-32.2) pg MCHC 33.4 (32.2-35.5) g/dL RDW 14.2 (11.7-14.4) % Plt Count 310 (182-369) x10^3/uL MPV 8.7 L (9.4-12.3) fL Gran % 79.0 H (34.0-71.1) % Immature Gran % (Auto) 0.3 (0.001-0.429) % Nucleat RBC Rel Count 0.0 (0.00-0.2) % Eos # (Auto) 0.61 H (0.04-0.36) x10^3/uL Immature Gran # (Auto) 0.03 (0.001-0.031) x10^3u/L Absolute Lymphs (auto) 0.65 L (1.18-3.74) x10^3/uL Absolute Monos (auto) 0.59 (0.24-0.86) x10^3/uL Absolute Nucleated RBC 0.00 (0.00-0.012) x10^3u/L Lymphocytes % 6.9 L (19.3-51.7) % Monocytes % 6.2 (4.7-12.5) % Eosinophils % 6.5 H (0.7-5.8) % Basophils % 1.1 (0.1-1.2) % Absolute Granulocytes 7.47 H (1.56-6.13) x10^3/uL Basophils # 0.10 H (0.01-0.08) x10^3/uL D-Dimer (0.0-0.50) mg/L Sodium 137 (135-145) mmol/L Potassium 5.2 H (3.5-5.1) mmol/L Chloride 96 L (98-107) mmol/L Carbon Dioxide 33 H (22-30) mmol/L Anion Gap 13.0 (5-15) MEQ/L BUN 18 H (7-17) mg/dL Creatinine 0.86 (0.52-1.04) mg/dL Estimated GFR 72.2 ML/MIN Glucose 146 H (74-106) mg/dL Calcium 10.5 H (8.4-10.2) mg/dL Total Bilirubin 0.50 (0.2-1.3) mg/dL AST 28 (14-36) U/L ALT 19 (0-35) U/L Alkaline Phosphatase 83 (38-126) U/L Troponin I (0.000-0.033) ng/mL Serum Total Protein 7.3 (6.3-8.2) g/dL Albumin 4.7 (3.5-5.0) g/dL Urine Color (Yellow) Urine Appearance (Clear) Urine pH (4.6-8.0) Ur Specific [place] (1.005-1.030) Urine Protein (Negative) Urine Glucose (UA) (Negative) mg/dL Urine Ketones (Negative) Urine Blood (Negative) Urine Nitrite (Negative) Urine Bilirubin (Negative) Urine Urobilinogen (0.2) mg/dL Ur Leukocyte Esterase (Negative) U Hyaline Cast (Auto) (0-2) /LPF Urine Microscopic RBC (0-5) /HPF Urine Microscopic WBC (0-5) /HPF Ur Epithelial Cells (None Seen) /HPF Urine Bacteria (None Seen) /HPF Urine Culture Reflexed (NO) Influenza Type A Ag NEGATIVE (NEGATIVE) Influenza Type B Ag NEGATIVE (NEGATIVE) RSV (PCR) NEGATIVE (NEGATIVE) SARS-CoV-2 (PCR) NEGATIVE (NEGATIVE) 05/13/24 05/13/24 05/13/24 Range/Units 21:05 21:05 21:38 WBC (3.98-10.04) x10^3/uL RBC (3.93-5.22) x10^6/uL Hgb (11.2-15.7) g/dL Hct (34.1-44.9) % MCV (79.4-94.8) fL MCH (25.6-32.2) pg MCHC (32.2-35.5) g/dL RDW (11.7-14.4) % Plt Count (182-369) x10^3/uL MPV (9.4-12.3) fL Gran % (34.0-71.1) % Immature Gran % (Auto) (0.001-0.429) % Nucleat RBC Rel Count (0.00-0.2) % Eos # (Auto) (0.04-0.36) x10^3/uL Immature Gran # (Auto) (0.001-0.031) x10^3u/L Absolute Lymphs (auto) (1.18-3.74) x10^3/uL Absolute Monos (auto) (0.24-0.86) x10^3/uL Absolute Nucleated RBC (0.00-0.012) x10^3u/L Lymphocytes % (19.3-51.7) % Monocytes % (4.7-12.5) % Eosinophils % (0.7-5.8) % Basophils % (0.1-1.2) % Absolute Granulocytes (1.56-6.13) x10^3/uL Basophils # (0.01-0.08) x10^3/uL D-Dimer 0.31 (0.0-0.50) mg/L Sodium (135-145) mmol/L Potassium (3.5-5.1) mmol/L Chloride (98-107) mmol/L Carbon Dioxide (22-30) mmol/L Anion Gap (5-15) MEQ/L BUN (7-17) mg/dL Creatinine (0.52-1.04) mg/dL Estimated GFR ML/MIN Glucose (74-106) mg/dL Calcium (8.4-10.2) mg/dL Total Bilirubin (0.2-1.3) mg/dL AST (14-36) U/L ALT (0-35) U/L Alkaline Phosphatase (38-126) U/L Troponin I < 0.012 (0.000-0.033) ng/mL Serum Total Protein (6.3-8.2) g/dL Albumin (3.5-5.0) g/dL Urine Color Yellow (Yellow) Urine Appearance Clear (Clear) Urine pH 6.5 (4.6-8.0) Ur Specific [place] 1.015 (1.005-1.030) Urine Protein 100 A (Negative) Urine Glucose (UA) Negative (Negative) mg/dL Urine Ketones Negative (Negative) Urine Blood Negative (Negative) Urine Nitrite Negative (Negative) Urine Bilirubin Negative (Negative) Urine Urobilinogen 1.0 A (0.2) mg/dL Ur Leukocyte Esterase Negative (Negative) U Hyaline Cast (Auto) NONE SEEN (0-2) /LPF Urine Microscopic RBC 0-2 (0-5) /HPF Urine Microscopic WBC 0-2 (0-5) /HPF Ur Epithelial Cells None Seen (None Seen) /HPF Urine Bacteria None Seen (None Seen) /HPF Urine Culture Reflexed NO (NO) Influenza Type A Ag (NEGATIVE) Influenza Type B Ag (NEGATIVE) RSV (PCR) (NEGATIVE) SARS-CoV-2 (PCR) (NEGATIVE) 05/14/24 Range/Units 01:47 WBC (3.98-10.04) x10^3/uL RBC (3.93-5.22) x10^6/uL Hgb (11.2-15.7) g/dL Hct (34.1-44.9) % MCV (79.4-94.8) fL MCH (25.6-32.2) pg MCHC (32.2-35.5) g/dL RDW (11.7-14.4) % Plt Count (182-369) x10^3/uL MPV (9.4-12.3) fL Gran % (34.0-71.1) % Immature Gran % (Auto) (0.001-0.429) % Nucleat RBC Rel Count (0.00-0.2) % Eos # (Auto) (0.04-0.36) x10^3/uL Immature Gran # (Auto) (0.001-0.031) x10^3u/L Absolute Lymphs (auto) (1.18-3.74) x10^3/uL Absolute Monos (auto) (0.24-0.86) x10^3/uL Absolute Nucleated RBC (0.00-0.012) x10^3u/L Lymphocytes % (19.3-51.7) % Monocytes % (4.7-12.5) % Eosinophils % (0.7-5.8) % Basophils % (0.1-1.2) % Absolute Granulocytes (1.56-6.13) x10^3/uL Basophils # (0.01-0.08) x10^3/uL D-Dimer (0.0-0.50) mg/L Sodium (135-145) mmol/L Potassium (3.5-5.1) mmol/L Chloride (98-107) mmol/L Carbon Dioxide (22-30) mmol/L Anion Gap (5-15) MEQ/L BUN (7-17) mg/dL Creatinine (0.52-1.04) mg/dL Estimated GFR ML/MIN Glucose (74-106) mg/dL Calcium (8.4-10.2) mg/dL Total Bilirubin (0.2-1.3) mg/dL AST (14-36) U/L ALT (0-35) U/L Alkaline Phosphatase (38-126) U/L Troponin I < 0.012 (0.000-0.033) ng/mL Serum Total Protein (6.3-8.2) g/dL Albumin (3.5-5.0) g/dL Urine Color (Yellow) Urine Appearance (Clear) Urine pH (4.6-8.0) Ur Specific [place] (1.005-1.030) Urine Protein (Negative) Urine Glucose (UA) (Negative) mg/dL Urine Ketones (Negative) Urine Blood (Negative) Urine Nitrite (Negative) Urine Bilirubin (Negative) Urine Urobilinogen (0.2) mg/dL Ur Leukocyte Esterase (Negative) U Hyaline Cast (Auto) (0-2) /LPF Urine Microscopic RBC (0-5) /HPF Urine Microscopic WBC (0-5) /HPF Ur Epithelial Cells (None Seen) /HPF Urine Bacteria (None Seen) /HPF Urine Culture Reflexed (NO) Influenza Type A Ag (NEGATIVE) Influenza Type B Ag (NEGATIVE) RSV (PCR) (NEGATIVE) SARS-CoV-2 (PCR) (NEGATIVE) - Radiology Impressions Radiology Exams & Impressions: Radiology Procedures Category Date Time Status CHEST 1 VIEW (PORTABLE) Stat Exams 05/13/24 22:11 Taken Chest x-ray images personally reviewed. Mild scarring at the right base, u nchanged from comparison chest x-ray in March. Otherwise, no infiltrate, effusion, or edema. (Images personally reviewed) - Other Procedures and Tests Respiratory Therapy 05/13/24 20:40 Respiratory Therapy Assessment Q24H 05/14/24 00:44 Oxygen Nasal Cannula 3 lpm Assessment/Plan (1) COPD exacerbation Current Visit: Yes Status: Chronic Assessment & Plan: 73-year-old woman with a history of COPD, tobacco use, hypertension, here with acute exacerbation of COPD. ## COPD with acute exacerbation with concomitant acute on chronic hypoxic respiratory failure, currently requiring 3 L oxygen. She does have 3 L oxygen available at home, but she normally only uses it as needed. She has some wheezing on exam, but no longer having any accessory muscle use. Chest x-ray is negative for pneumonia. Start prednisone 40 mg daily Albuterol/ipratropium q.4 hours PRN Continue oxygen, titrate to maintain SpO2 between 91 and 94% PRN guaifenesin/dextromethorphan ## Tobacco use currently smoking 1/2 pack/day. Patient currently declined nicotine patch as she hopes to be discharged later today Counseled on smoking cessation ## Hypertension blood pressure controlled Continue amlodipine 5 mg daily CODE STATUS: Full code Diet: Regular Prophylaxis: Lovenox 40 mg daily Dispo: Place in observation, expect discharge to home Entirety of encounter took place via live audio/video telemedicine device, with remote physician and patient in hospital, with the assistance of bedside nurse. Code(s): J44.1 - CHRONIC OBSTRUCTIVE PULMONARY DISEASE W (ACUTE) EXACERBATION Telemedicine Encounter - Telemedicine Encounter Telemedicine Encounter: "The entirety of this encounter was performed via Telemedicine" This visit was performed using real-time audio and video connection between my location and thepatients locationwith the assistance of a surrogateat the patients location. Written or verbal consent was obtained from the patient/guardian to perform this [facility]. Any patient questions regarding the telemedicine interaction were answered.
[2024-05-14 06:03] LABS: Hematocrit 39.7 % (34.1-44.9); Hemoglobin 12.7 g/dL (11.2-15.7); Mean Cell Volume 94.7 fL (79.4-94.8); Mean Corpuscular Hemoglobin 30.3 pg (25.6-32.2); Mean Platelet Volume 9.2 fL (9.4-12.3); Platelet Count 307 x10^3/uL (182-369); Red Blood Count 4.19 x10^6/uL (3.93-5.22); Red Cell Distribution Width 14.5 % (11.7-14.4); White Blood Count 5.4 x10^3/uL (3.98-10.04)
[2024-05-14 06:23] LABS: ANION GAP 15.3 MEQ/L (5-15); Calcium 9.8 mg/dL (8.4-10.2); Creatinine 1 0.67 mg/dL (0.52-1.04); EST GLOMERULAR FILTRATION RATE 93.4 ML/MIN; Potassium 4.7 mmol/L (3.5-5.1)
[2024-05-14] MEDS ORDERED: MEDICATION INTERVENTION MC SCH (07:30)
--- NOTE | 2024-05-14 08:53 | XRAY ---
Indication: Short of breath. Comparison: November 26, 2023 Portable chest again hyperinflated and clear. Heart not enlarged. Bony thorax intact. No new/acute findings.
[2024-05-14] MEDS ORDERED: NIACIN 100 MG PO SCH (10:00)
[2024-05-14] MEDS: ECOTRIN 81 MG PO SCH (10:14)
[2024-05-14] MEDS: NORVASC 5 MG PO SCH (10:14)
[2024-05-14] MEDS: Pepcid 20 MG PO SCH (10:14)
[2024-05-14] MEDS: Lopressor 50 MG PO SCH (10:14)
[2024-05-14] MEDS: DELTASONE 20 MG PO SCH (10:14)
[2024-05-14] MEDS: ENOXAPARIN SODIUM SQ SCH (10:15)
--- NOTE | 2024-05-14 10:24 | PCM.DS ---
Discharge Summary Date of Admission: 05/14/24 00:04 Date of Discharge: 05/14/24 Admitting Physician: ABDIAZIZ WHITLOCK MD Primary Care Provider: LIZETH CRUZ Allergies Allergies cat dander Allergy (Severe, Verified 05/14/24 00:40) Shortness of Breath perfume Adverse Reaction (Intermediate, Verified 05/14/24 00:40) Shortness of Breath Hospital Summary - Hospital Course Hospital Course: Ms. Mcdowell is a 73-year-old woman with a PMHX of COPD, hypertension, tobacco use, and occasional use of PRN oxygen at home. She presented to ER with worsening dyspnea on 05/13/24. She reports progressive shortness of breath over the past few days, which she was managing with her nebulizers and 3 L of PRN oxygen at night. However, on the evening of 05/13/24, her dyspnea suddenly worsened and was not relieved by her nebulizer. She has experienced intermittent cough but denies fever, sputum production, sick contacts, myalgias, or diarrhea. She has mild wheezing and continues to smoke about half a pack per day. Today she was using 1 L nasal cannula and had an oxygen saturation of 94%, which is her baseline when on 3 L of oxygen. She feels somewhat better and expresses a desire to be discharged. Will continue steroids and Mucinex and will follow up with her PCP and pulmonology outpatient. - Vitals & Intake/Output Vital Signs: Vital Signs Temperature 98.2 F 05/14/24 07:26 Pulse Rate 76 05/14/24 07:30 Respiratory Rate 18 05/14/24 07:30 Blood Pressure 129/70 05/14/24 07:26 O2 Sat by Pulse Oximetry 95 05/14/24 07:30 Intake & Output: Intake & Output 05/11/24 05/12/24 05/13/24 05/14/24 11:59 11:59 11:59 11:59 Intake Total 580 Output Total 200 Balance 380 Weight 55.9 kg - Lab Result Diagrams: 05/14/24 05:32 05/14/24 05:32 Lab Results-Last 24 Hrs: Lab Results-Last 24 Hours 05/13/24 05/13/24 05/13/24 Range/Units 20:50 21:05 21:05 WBC 9.5 (3.98-10.04) x10^3/uL RBC 4.43 (3.93-5.22) x10^6/uL Hgb 14.0 (11.2-15.7) g/dL Hct 41.9 (34.1-44.9) % MCV 94.6 (79.4-94.8) fL MCH 31.6 (25.6-32.2) pg MCHC 33.4 (32.2-35.5) g/dL RDW 14.2 (11.7-14.4) % Plt Count 310 (182-369) x10^3/uL MPV 8.7 L (9.4-12.3) fL Gran % 79.0 H (34.0-71.1) % Immature Gran % (Auto) 0.3 (0.001-0.429) % Nucleat RBC Rel Count 0.0 (0.00-0.2) % Eos # (Auto) 0.61 H (0.04-0.36) x10^3/uL Immature Gran # (Auto) 0.03 (0.001-0.031) x10^3u/L Absolute Lymphs (auto) 0.65 L (1.18-3.74) x10^3/uL Absolute Monos (auto) 0.59 (0.24-0.86) x10^3/uL Absolute Nucleated RBC 0.00 (0.00-0.012) x10^3u/L Lymphocytes % 6.9 L (19.3-51.7) % Monocytes % 6.2 (4.7-12.5) % Eosinophils % 6.5 H (0.7-5.8) % Basophils % 1.1 (0.1-1.2) % Absolute Granulocytes 7.47 H (1.56-6.13) x10^3/uL Basophils # 0.10 H (0.01-0.08) x10^3/uL D-Dimer (0.0-0.50) mg/L Sodium 137 (135-145) mmol/L Potassium 5.2 H (3.5-5.1) mmol/L Chloride 96 L (98-107) mmol/L Carbon Dioxide 33 H (22-30) mmol/L Anion Gap 13.0 (5-15) MEQ/L BUN 18 H (7-17) mg/dL Creatinine 0.86 (0.52-1.04) mg/dL Estimated GFR 72.2 ML/MIN Glucose 146 H (74-106) mg/dL Calcium 10.5 H (8.4-10.2) mg/dL Total Bilirubin 0.50 (0.2-1.3) mg/dL AST 28 (14-36) U/L ALT 19 (0-35) U/L Alkaline Phosphatase 83 (38-126) U/L Troponin I (0.000-0.033) ng/mL Serum Total Protein 7.3 (6.3-8.2) g/dL Albumin 4.7 (3.5-5.0) g/dL Urine Color (Yellow) Urine Appearance (Clear) Urine pH (4.6-8.0) Ur Specific [place] (1.005-1.030) Urine Protein (Negative) Urine Glucose (UA) (Negative) mg/dL Urine Ketones (Negative) Urine Blood (Negative) Urine Nitrite (Negative) Urine Bilirubin (Negative) Urine Urobilinogen (0.2) mg/dL Ur Leukocyte Esterase (Negative) U Hyaline Cast (Auto) (0-2) /LPF Urine Microscopic RBC (0-5) /HPF Urine Microscopic WBC (0-5) /HPF Ur Epithelial Cells (None Seen) /HPF Urine Bacteria (None Seen) /HPF Urine Culture Reflexed (NO) Influenza Type A Ag NEGATIVE (NEGATIVE) Influenza Type B Ag NEGATIVE (NEGATIVE) RSV (PCR) NEGATIVE (NEGATIVE) SARS-CoV-2 (PCR) NEGATIVE (NEGATIVE) 05/13/24 05/13/24 05/13/24 Range/Units 21:05 21:05 21:38 WBC (3.98-10.04) x10^3/uL RBC (3.93-5.22) x10^6/uL Hgb (11.2-15.7) g/dL Hct (34.1-44.9) % MCV (79.4-94.8) fL MCH (25.6-32.2) pg MCHC (32.2-35.5) g/dL RDW (11.7-14.4) % Plt Count (182-369) x10^3/uL MPV (9.4-12.3) fL Gran % (34.0-71.1) % Immature Gran % (Auto) (0.001-0.429) % Nucleat RBC Rel Count (0.00-0.2) % Eos # (Auto) (0.04-0.36) x10^3/uL Immature Gran # (Auto) (0.001-0.031) x10^3u/L Absolute Lymphs (auto) (1.18-3.74) x10^3/uL Absolute Monos (auto) (0.24-0.86) x10^3/uL Absolute Nucleated RBC (0.00-0.012) x10^3u/L Lymphocytes % (19.3-51.7) % Monocytes % (4.7-12.5) % Eosinophils % (0.7-5.8) % Basophils % (0.1-1.2) % Absolute Granulocytes (1.56-6.13) x10^3/uL Basophils # (0.01-0.08) x10^3/uL D-Dimer 0.31 (0.0-0.50) mg/L Sodium (135-145) mmol/L Potassium (3.5-5.1) mmol/L Chloride (98-107) mmol/L Carbon Dioxide (22-30) mmol/L Anion Gap (5-15) MEQ/L BUN (7-17) mg/dL Creatinine (0.52-1.04) mg/dL Estimated GFR ML/MIN Glucose (74-106) mg/dL Calcium (8.4-10.2) mg/dL Total Bilirubin (0.2-1.3) mg/dL AST (14-36) U/L ALT (0-35) U/L Alkaline Phosphatase (38-126) U/L Troponin I < 0.012 (0.000-0.033) ng/mL Serum Total Protein (6.3-8.2) g/dL Albumin (3.5-5.0) g/dL Urine Color Yellow (Yellow) Urine Appearance Clear (Clear) Urine pH 6.5 (4.6-8.0) Ur Specific [place] 1.015 (1.005-1.030) Urine Protein 100 A (Negative) Urine Glucose (UA) Negative (Negative) mg/dL Urine Ketones Negative (Negative) Urine Blood Negative (Negative) Urine Nitrite Negative (Negative) Urine Bilirubin Negative (Negative) Urine Urobilinogen 1.0 A (0.2) mg/dL Ur Leukocyte Esterase Negative (Negative) U Hyaline Cast (Auto) NONE SEEN (0-2) /LPF Urine Microscopic RBC 0-2 (0-5) /HPF Urine Microscopic WBC 0-2 (0-5) /HPF Ur Epithelial Cells None Seen (None Seen) /HPF Urine Bacteria None Seen (None Seen) /HPF Urine Culture Reflexed NO (NO) Influenza Type A Ag (NEGATIVE) Influenza Type B Ag (NEGATIVE) RSV (PCR) (NEGATIVE) SARS-CoV-2 (PCR) (NEGATIVE) 05/14/24 05/14/24 05/14/24 Range/Units 01:47 05:32 05:32 WBC 5.4 (3.98-10.04) x10^3/uL RBC 4.19 (3.93-5.22) x10^6/uL Hgb 12.7 (11.2-15.7) g/dL Hct 39.7 (34.1-44.9) % MCV 94.7 (79.4-94.8) fL MCH 30.3 (25.6-32.2) pg MCHC 32.0 L (32.2-35.5) g/dL RDW 14.5 H (11.7-14.4) % Plt Count 307 (182-369) x10^3/uL MPV 9.2 L (9.4-12.3) fL Gran % (34.0-71.1) % Immature Gran % (Auto) (0.001-0.429) % Nucleat RBC Rel Count (0.00-0.2) % Eos # (Auto) (0.04-0.36) x10^3/uL Immature Gran # (Auto) (0.001-0.031) x10^3u/L Absolute Lymphs (auto) (1.18-3.74) x10^3/uL Absolute Monos (auto) (0.24-0.86) x10^3/uL Absolute Nucleated RBC (0.00-0.012) x10^3u/L Lymphocytes % (19.3-51.7) % Monocytes % (4.7-12.5) % Eosinophils % (0.7-5.8) % Basophils % (0.1-1.2) % Absolute Granulocytes (1.56-6.13) x10^3/uL Basophils # (0.01-0.08) x10^3/uL D-Dimer (0.0-0.50) mg/L Sodium 138 (135-145) mmol/L Potassium 4.7 (3.5-5.1) mmol/L Chloride 99 (98-107) mmol/L Carbon Dioxide 28 (22-30) mmol/L Anion Gap 15.3 H (5-15) MEQ/L BUN 17 (7-17) mg/dL Creatinine 0.67 (0.52-1.04) mg/dL Estimated GFR 93.4 ML/MIN Glucose 151 H (74-106) mg/dL Calcium 9.8 (8.4-10.2) mg/dL Total Bilirubin (0.2-1.3) mg/dL AST (14-36) U/L ALT (0-35) U/L Alkaline Phosphatase (38-126) U/L Troponin I < 0.012 (0.000-0.033) ng/mL Serum Total Protein (6.3-8.2) g/dL Albumin (3.5-5.0) g/dL Urine Color (Yellow) Urine Appearance (Clear) Urine pH (4.6-8.0) Ur Specific [place] (1.005-1.030) Urine Protein (Negative) Urine Glucose (UA) (Negative) mg/dL Urine Ketones (Negative) Urine Blood (Negative) Urine Nitrite (Negative) Urine Bilirubin (Negative) Urine Urobilinogen (0.2) mg/dL Ur Leukocyte Esterase (Negative) U Hyaline Cast (Auto) (0-2) /LPF Urine Microscopic RBC (0-5) /HPF Urine Microscopic WBC (0-5) /HPF Ur Epithelial Cells (None Seen) /HPF Urine Bacteria (None Seen) /HPF Urine Culture Reflexed (NO) Influenza Type A Ag (NEGATIVE) Influenza Type B Ag (NEGATIVE) RSV (PCR) (NEGATIVE) SARS-CoV-2 (PCR) (NEGATIVE) - Radiology Exams Ordered Rad Exams-Entire Visit: Radiology Procedures Category Date Time Status CHEST 1 VIEW (PORTABLE) Stat Exams 05/13/24 22:11 Completed - Procedures and Test Procedures and Tests throughout Hospitalization: Therapy Orders & Screens 05/13/24 20:40 Respiratory Therapy Assessment Q24H Comment: 05/14/24 00:37 RT Screen per Nursing Assess ONCE Comment: Protocol Order Physician Instructions: Greater than 3 points order RT Admission Screen Reason For Exam: Triggered on Admission Diagnosis: copd exacc Diagnosis: copd exacc Pneumonia: No Home O2: Yes Asthma: No CHF: No Home CPAP/BIPAP: No Home Nebs/MDI: Yes Total Points: 10 Smoking Cessation Education ONCE Comment: Diagnosis: copd exacc Smoking Status: Current every day smoker How long have you smoked: 50yrs Have you smoked in the past 12 months: Yes Approximately how many cigarettes per day: 1/2 Do you dip or chew tobacco: No 05/14/24 00:44 Oxygen Nasal Cannula 3 lpm Comment: Diagnosis: copd exacc Discharge Exam General Appearance: no apparent distress, alert Neurologic Exam: alert, oriented x 3, cooperative, normal mood/affect, nml cerebellar function, sensation nml, No motor deficits Eye Exam: PERRL, EOMI, eyes nml inspection Ears, Nose, Throat Exam: normal ENT inspection, pharynx normal, moist mucous me mbranes Neck Exam: normal inspection, non-tender, supple, full range of motion Respiratory Exam: normal breath sounds, wheezing, No respiratory distress Cardiovascular Exam: regular rate/rhythm, normal heart sounds Gastrointestinal/Abdomen Exam: soft, No tenderness, No mass Pelvic Exam: deferred Rectal Exam: deferred Back Exam: normal inspection, normal range of motion, No CVA tenderness, No vertebral tenderness Extremity Exam: normal inspection, normal range of motion Skin Exam: normal color, warm, dry Final Diagnosis/Problem List - Final Discharge Diagnosis/Problem (1) COPD exacerbation Current Visit: Yes Status: Acute Assessment & Plan: prednisone 40 mg daily Albuterol/ipratropium q.4 hours PRN Continue oxygen, titrate to maintain SpO2 between 91 and 94% PRN guaifenesin/dextromethorphan Code(s): J44.1 - CHRONIC OBSTRUCTIVE PULMONARY DISEASE W (ACUTE) EXACERBATION (2) Smoker Current Visit: No Status: Chronic Assessment & Plan: Declined nicotine patch Counseled on smoking cessation Code(s): F17.200 - NICOTINE DEPENDENCE, UNSPECIFIED, UNCOMPLICATED (3) HTN (hypertension) Current Visit: No Status: Chronic Assessment & Plan: blood pressure controlled Continue amlodipine 5 mg daily Code(s): I10 - ESSENTIAL (PRIMARY) HYPERTENSION - Discharge Discharge Date: 05/14/24 Disposition: Home, Self-Care Condition: Stable Prescriptions: New Prednisone 20 mg [Deltasone 20 mg] 20 mg PO BID 5 Days #10 tablet Continue Alendronate Sodium 70 mg PO GRADY Amlodipine Besylate 5 mg PO DAILY Aspirin EC 81 mg [Ecotrin 81 mg] 81 mg PO DAILY Niacin 200 mg PO DAILY Atorvastatin Calcium [Lipitor] 5 mg PO HS Famotidine 20 mg [Pepcid 20 MG] 20 mg PO DAILY Metoprolol Tartrate 50 mg [Lopressor 50 MG] 50 mg PO BID Albuterol Sulfate 1 neb IH Q6H PRN PRN PRN Reason: Shortness Of Breath Cyanocobalamin (Vitamin B-12) [Vitamin B12] 1,000 mcg PO DAILY Cholecalciferol (Vitamin D3) [Vitamin D3] 125 mcg PO SUMOWEFR Calcium Carbonate [Calcium] 600 mg PO DAILY Albuterol Sulfate [Albuterol Sulfate Hfa] 2 puff IH Q4HPRN PRN PRN Reason: Shortness Of Breath Additional Instructions: You can buy OTC Coricidin cough medication over the counter if needed for cough. This medication will not affect your blood pressure therefore would be the best choice of cough medication for you to use. Please follow up with Dr. Melendrez, Manager Math as scheduled. Follow up with: LIZETH CRUZ [Primary Care Provider] - Call for Appointment
[2024-05-14] MEDS: DUONEB 0.5-3 MG/3 ml Neb IH PRN (11:32)
[2024-05-14 11:37] VITALS: O2SAT 90
[2024-05-14 11:48] VITALS: BP 137/63; PULSE 77; RESP 16; TEMP 98.1
[2024-05-14] MEDS ORDERED: Zocor 10MG PO SCH (22:00)
== END 2024-05-14 15:25 | disposition home or self-care (01) ==
LOC: ED 20:35 → MED SURG 05-14 00:04
PROVIDERS: ADMIT Internal Medicine; ATTEND Internal Medicine
DX: J44.1 Chronic obstructive pulmonary disease with (acute) exacerbation (principal); I10 Essential (primary) hypertension; F17.200 Nicotine dependence, unspecified, uncomplicated; Z79.899 Other long term (current) drug therapy; E78.5 Hyperlipidemia, unspecified
CPT/HCPCS: 0241U; 36415; 71045; 80048; 80053; 81001; 84484; 85025; 85027; 85379; 87040; 93005; 93041; 94640; 94760; 94762; 96374; 99285; 93268; J0456; J0696; J2919; Q3014; A9270-GY; G0378

== ENCOUNTER 2024-12-29 15:25 | Inpatient (IN) | payer MEDICARE, OTHER ==
[2024-12-29] MEDS ORDERED: DUONEB 0.5-3 MG/3 ml Neb IH ONE (15:32)
[2024-12-29] MEDS: DUONEB 0.5-3 MG/3 ml Neb IH ONE (15:40)
--- NOTE | 2024-12-29 15:41 | ERPHSYRPT ---
- History of Present Illness Patient Subjective Stated Complaint: patient was broguht down by wheelchair nad dropped off in wwaiting room Triage Nursing Assessment: patient drove herself to [facility], she was short of breath and when she's coughing shes having pain in her chest from the coughing. patient is alert and oriented x3, able to ambulate by self. lung sounds bilateral diminished small wheezes posterior lung sounds. skin warm dry and intact, no other complaints noted. Physician History: Shortness of breath, worse this morning, home neb treatments not helping, this is not her worst episode, denies home oxygen use Timing/Duration: day(s) (1) Severity of Dyspnea-Max: moderate Severity of Dyspnea-Current: moderate Associated Symptoms: cough Allergies/Adverse Reactions: cat dander Allergy (Severe, Verified 08/05/24 21:05) Shortness of Breath perfume Adverse Reaction (Intermediate, Verified 08/05/24 21:05) Shortness of Breath Home Medications: Alendronate Sodium 70 mg PO GRADY 06/09/18 [History] Amlodipine Besylate 5 mg PO DAILY 06/09/18 [History] Aspirin EC 81 mg [Ecotrin 81 mg] 81 mg PO DAILY 12/27/21 [History] Atorvastatin Calcium [Lipitor] 5 mg PO HS 12/27/21 [History] Famotidine 20 mg [Pepcid 20 MG] 20 mg PO DAILY 12/27/21 [History] Niacin 200 mg PO DAILY 12/27/21 [History] Metoprolol Tartrate 50 mg [Lopressor 50 MG] 50 mg PO BID 01/03/22 [History] Albuterol Sulfate 1 neb IH Q6H PRN PRN 03/06/23 [History] Calcium Carbonate [Calcium] 600 mg PO DAILY 03/06/23 [History] Cholecalciferol (Vitamin D3) [Vitamin D3] 125 mcg PO SUMOWEFR 03/06/23 [History] Cyanocobalamin (Vitamin B-12) [Vitamin B12] 1,000 mcg PO DAILY 03/06/23 [History] Albuterol Sulfate [Albuterol Sulfate Hfa] 2 puff IH Q4HPRN PRN 08/17/23 [History] Hx Tetanus, Diphtheria Vaccination/Date Given: Yes Hx Influenza Vaccination/Date Given: Yes Hx Pneumococcal Vaccination/Date Given: Yes Immunizations Up to Date: Yes Travel Risk - International Travel Have you traveled outside of the country in past 3 weeks: No - Emerging Infectious Disease Are you exhibiting symptoms associated with any current EIDs: No Symptoms: Shortness of Breath - Past Medical History Pertinent Past Medical History: Yes Neurological History: No Pertinent History ENT History: No Pertinent History Cardiac History: Arrhythmia, High Cholesterol, Hypertension Respiratory History: Bronchitis, COPD Endocrine Medical History: No Pertinent History Musculoskeletal History: No Pertinent History GI Medical History: Gallbladder Disease History: No Pertinent History Psycho-Social History: No Pertinent History Female Reproductive Disorders: No Pertinent History Other Medical History: tachycardia - Past Surgical History Past Surgical History: Yes Neuro Surgical History: No Pertinent History Cardiac: Cardiac Catheterization Respiratory: No Pertinent History Gastrointestinal: Appendectomy, Cholecystectomy Genitourinary: No Pertinent History Musculoskeletal: No Pertinent History Female Surgical History: Hysterectomy Other Surgical History: release of 1st dorsal compartment, 3 laproscopy female. Significant Family History: no pertinent family hx (No family history pertaining to this admission reported.) - Social History Smoking Status: Current every day smoker How long have you smoked: 50yrs Exposure to second hand smoke: No Drug Use: none - Social Determinants of Health Will the patient participate in the screening: Yes Do you worry about a steady place to live?: No Do you have any problems with any of the following?: No known problems In the past 12 months,have you had to go without utilities?: No Transportation Issues: No Has anyone in your support network made you feel unsafe?: No Have you or anyone in your house had to go w/o enough food: No - Nursing Vital Signs Nursing Vital Signs: Initial Vital Signs Temperature 97.5 F 12/29/24 15:25 Pulse Rate 85 12/29/24 15:25 Respiratory Rate 20 12/29/24 15:25 Blood Pressure 146/69 12/29/24 15:25 O2 Sat by Pulse Oximetry 86 L 12/29/24 15:25 Pain Scale Pain Intensity 8 - Physical Exam General Appearance: no apparent distress, alert Eye Exam: PERRL/EOMI Neck Exam: normal inspection, supple Respiratory Exam: diminished breath sounds, wheezing Cardiovascular/Chest Exam: normal heart sounds, regular rate/rhythm Abdominal/Gastrointestinal Exam: soft, No tenderness, No distention, No mass Extremity Exam: non-tender, normal range of motion, normal inspection, no calf tenderness, no pedal edema Neurologic Exam: alert, oriented x 3, cooperative, system support developer II-XII nml as tested, sensation nml, No motor deficits Skin Exam: normal color, warm, No dry SpO2 Interpretation: hypoxic SpO2: 86 - Radiology Exams Chest X-ray Interpretation: Interpreted by me, No Pneumonia, No Pneumothorax, Nml Heart Size, No Infiltrates, Nml Mediastinum Ordered Tests: Active Orders 24 hr Category Date Time Status Clinical Informatics Physician STAT Care 12/29/24 15:35 Active EKG-ER Only STAT Care 12/29/24 15:34 Active IV Insertion STAT Care 12/29/24 15:34 Active CHEST 1 VIEW (PORTABLE) Stat Exams 12/29/24 15:34 Completed CBC W DIFF Stat Lab 12/29/24 16:00 Completed CMP Stat Lab 12/29/24 16:00 Completed MAGNESIUM Stat Lab 12/29/24 16:00 Completed Respiratory Therapy Assessment DAILY RT 12/29/24 15:43 Active Medication Summary Discontinued Medications Generic Name Dose Route Start Last Admin Trade Name Josie PRN Reason Stop Dose Admin Albuterol/Ipratropium Confirm 12/29/24 15:32 Ipratropium/Albuterol Sulfate 3 Ml Ampul.Neb Administered 12/29/24 15:33 Dose 3 ml IH .STK-MED ONE Albuterol/Ipratropium 3 ml 12/29/24 15:43 12/29/24 15:40 Ipratropium/Albuterol Sulfate 3 Ml Ampul.Neb IH 12/29/24 15:44 3 ml STAT ONE Administration Methylprednisolone Sodium 0 mg 12/29/24 16:49 12/29/24 17:06 Succinate 125 mg/ Sterile IV 12/29/24 16:50 125 mg Water 2 ml STAT ONE Administration Methylprednisolone Sodium Succinate Confirm 12/29/24 17:02 Methylprednis Sod Succ 125 Mg/2 Ml Vial Administered 12/29/24 17:03 Dose 125 mg .ROUTE .STK-MED ONE Sterile Water Confirm 12/29/24 17:02 Water For Injection,Sterile 10 Ml Vial Administered 12/29/24 17:03 Dose 10 ml IJ .STK-MED ONE Lab/Rad Data: Laboratory Result Diagrams 12/29/24 16:00 12/29/24 16:00 Laboratory Results 12/29/24 12/29/24 Range/Units 16:00 16:00 WBC 11.5 H (3.98-10.04) x10^3/uL RBC 4.02 (3.93-5.22) x10^6/uL Hgb 12.6 (11.2-15.7) g/dL Hct 39.0 (34.1-44.9) % MCV 97.0 H (79.4-94.8) fL MCH 31.3 (25.6-32.2) pg MCHC 32.3 (32.2-35.5) g/dL RDW 13.8 (11.7-14.4) % Plt Count 283 (182-369) x10^3/uL MPV 8.5 L (9.4-12.3) fL Gran % 79.0 H (34.0-71.1) % Immature Gran % (Auto) 0.3 (0.001-0.429) % Nucleat RBC Rel Count 0.0 (0.00-0.2) % Eos # (Auto) 0.08 (0.04-0.36) x10^3/uL Immature Gran # (Auto) 0.04 H (0.001-0.031) x10^3u/L Absolute Lymphs (auto) 0.81 L (1.18-3.74) x10^3/uL Absolute Monos (auto) 1.47 H (0.24-0.86) x10^3/uL Absolute Nucleated RBC 0.00 (0.00-0.012) x10^3u/L Lymphocytes % 7.0 L (19.3-51.7) % Monocytes % 12.7 H (4.7-12.5) % Eosinophils % 0.7 (0.7-5.8) % Basophils % 0.3 (0.1-1.2) % Absolute Granulocytes 9.09 H (1.56-6.13) x10^3/uL Basophils # 0.04 (0.01-0.08) x10^3/uL Sodium 129 L (135-145) mmol/L Potassium 3.9 (3.5-5.1) mmol/L Chloride 91 L (98-107) mmol/L Carbon Dioxide 29 (22-30) mmol/L Anion Gap 12.8 (5-15) MEQ/L BUN 14 (7-17) mg/dL Creatinine 0.69 (0.52-1.04) mg/dL Estimated GFR 92.2 ML/MIN Glucose 118 H (74-106) mg/dL Calcium 9.1 (8.4-10.2) mg/dL Magnesium 1.5 L (1.6-2.3) mg/dL Total Bilirubin 0.90 (0.2-1.3) mg/dL AST 30 (14-36) U/L ALT 20 (0-35) U/L Alkaline Phosphatase 146 H (38-126) U/L Serum Total Protein 7.7 (6.3-8.2) g/dL Albumin 4.4 (3.5-5.0) g/dL - Progress Progress Note: 12/29/24 17:47 Oxygen saturation on 2 L nasal cannula 98%, She was given Solu-Medrol 125 mg IV push, discussed labs and x-rays, consult to hospitalist, placed in observation - Departure Departure Disposition: Observation Clinical Impression: COPD exacerbation Condition: Stable Critical Care Time: No Referrals: LIZETH CRUZ [Primary Care Provider, INTERNAL MEDICINE] - Follow up/PCP as directed Instructions: Chronic Obstructive Pulmonary Disease
[2024-12-29 16:09] LABS: BASOPHIL % 0.3 % (0.1-1.2); Basophil (Absolute #) 0.04 x10^3/uL (0.01-0.08); Eosinophil (Absolute #) 0.08 x10^3/uL (0.04-0.36); Hematocrit 39.0 % (34.1-44.9); Hemoglobin 12.6 g/dL (11.2-15.7); IMMATURE GRAN # 0.04 x10^3u/L (0.001-0.031); IMMATURE GRAN % 0.3 % (0.001-0.429); Lymphocyte (Absolute #) 0.81 x10^3/uL (1.18-3.74); Mean Corpuscular Hemoglobin 31.3 pg (25.6-32.2); Mean Corpuscular Hgb Concent. 32.3 g/dL (32.2-35.5); Monocyte (Absolute #) 1.47 x10^3/uL (0.24-0.86); NUCLEATED RBC # 0.00 x10^3u/L (0.00-0.012); NUCLEATED RBC % 0.0 % (0.00-0.2); Platelet Count 283 x10^3/uL (182-369); Red Blood Count 4.02 x10^6/uL (3.93-5.22); White Blood Count 11.5 x10^3/uL (3.98-10.04)
--- NOTE | 2024-12-29 16:27 | XRAY ---
Indication: Short of breath. Comparison: August 05, 2024 Portable chest again hyperinflated and clear. Heart not enlarged. Bony thorax intact again with osteopenia and minimal degenerative changes. No new/acute findings.
[2024-12-29] MEDS ORDERED: Sterile H2O 10 ml IJ ONE (17:02)
[2024-12-29] MEDS: solu-MEDROL 125 MG, Sterile H2O 10 ml 2 ML IV ONE (17:06)
[2024-12-29 17:29] LABS: Creatinine 1 0.69 mg/dL (0.52-1.04); Glucose 118.0 mg/dL (74-106)
[2024-12-29 17:30] LABS: Calcium 9.1 mg/dL (8.4-10.2); Carbon Dioxide 29.0 mmol/L (22-30); EST GLOMERULAR FILTRATION RATE 92.2 ML/MIN; Potassium 3.9 mmol/L (3.5-5.1); SGOT/AST 30.0 U/L (14-36); SGPT/ALT 20.0 U/L (0-35); Total Protein 7.7 g/dL (6.3-8.2)
[2024-12-29 18:46] LABS: INFLUENZA A NEGATIVE (NEGATIVE); INFLUENZA B NEGATIVE (NEGATIVE); RESPIRATORY SYNCTIAL VIRUS NEGATIVE (NEGATIVE); SARS-CoV-2 Xpert Express NEGATIVE (NEGATIVE)
[2024-12-29] MEDS ORDERED: VENTOLIN COMMON CANISTER IH PRN (19:01)
[2024-12-29] MEDS: DUONEB 0.5-3 MG/3 ml Neb IH SCH (19:49)
--- NOTE | 2024-12-29 20:51 | PCM.HP ---
History of Present Illness - Chief Complaint Chief Complaint: exacerbation of copd History of Present Illness: is a 74 year old female with PMH of hypertension, hyperlipidemia, arrhythmia, COPD who presented after experiencing shortness of breath and a productive cough for 2 days. Shortness of breath worsened during the day today. When she presented to the ED she was noted to be wheezing and had decreased breath sounds. She was hypoxic on room air with an oxygen saturation level of 86%. This improved to 98% with 2 L nasal cannula. She mentions that she tried taking her DuoNebs at home with minimal improvement. After receiving a DuoNeb treatment and Solu-Medrol in the ER she feels better. Was having chest pain associated with coughing but otherwise denies fever, chills, chest pain, palpitations, abdominal pain, nausea, vomiting, constipation, diarrhea, melena, rectal bleeding, dysuria, hematuria, urinary frequency or urgency. She endorses a [id number] history of smoking and currently smokes about 1/4 pack/day. Denies illicit drug use. Endorses occasional alcohol use. 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 She states that she has an appointment with her filtering machine tender helper next week. - Review of Systems Constitutional: No Symptoms Eyes: No Symptoms Ears, Nose, & Throat: No Symptoms Respiratory: Cough, Short Of Breath, Wheezing Cardiac: Edema Abdominal/Gastrointestinal: No Symptoms Genitourinary Symptoms: No Symptoms Musculoskeletal: No Symptoms Skin: No Symptoms Neurological: No Symptoms Psychological: No Symptoms Endocrine: No Symptoms Hematologic/Lymphatic: No Symptoms Immunological/Allergic: No Symptoms All Other Systems: Reviewed and Negative Medications & Allergies Home Medications: Home Medication List Alendronate Sodium 70 mg PO GRADY 06/09/18 [History Confirmed 12/29/24] Amlodipine Besylate 5 mg PO DAILY 06/09/18 [History Confirmed 12/29/24] Aspirin EC 81 mg [Ecotrin 81 mg] 81 mg PO DAILY 12/27/21 [History Confirmed 12/29/24] Atorvastatin Calcium [Lipitor] 10 mg PO HS 12/27/21 [History Confirmed 12/29/24] Famotidine 20 mg [Pepcid 20 MG] 20 mg PO DAILY 12/27/21 [History Confirmed 12/29/24] Niacin 200 mg PO DAILY 12/27/21 [History Confirmed 12/29/24] Metoprolol Tartrate 50 mg [Lopressor 50 MG] 50 mg PO BID 01/03/22 [History Confirmed 12/29/24] Albuterol Sulfate 1 neb IH Q6H PRN PRN 03/06/23 [History Confirmed 12/29/24] Calcium Carbonate [Calcium] 600 mg PO DAILY 03/06/23 [History Confirmed 12/29/24] Cholecalciferol (Vitamin D3) [Vitamin D3] 125 mcg PO SUMOWEFR 03/06/23 [History Confirmed 12/29/24] Cyanocobalamin (Vitamin B-12) [Vitamin B12] 1,000 mcg PO DAILY 03/06/23 [History Confirmed 12/29/24] Albuterol Sulfate [Albuterol Sulfate Hfa] 2 puff IH Q4HPRN PRN 08/17/23 [History Confirmed 12/29/24] Furosemide 20 mg [Lasix 20 mg] 20 mg PO DAILY 12/29/24 [History Confirmed 12/29/24] Allergies/Adverse Reactions: Allergies Allergy/AdvReac Type Severity Reaction Status Date / Time cat dander Allergy Severe Shortness Verified 08/05/24 21:05 of Breath perfume AdvReac Intermediate Shortness Verified 08/05/24 21:05 of Breath - Past Medical History Past Medical History: Yes Neurological History: No Pertinent History ENT History: No Pertinent History Cardiac History: Arrhythmia, High Cholesterol, Hypertension Respiratory History: Bronchitis, COPD Endocrine Medical History: No Pertinent History Musculoskelatal History: No Pertinent History GI Medical History: Gallbladder Disease History: No Pertinent History Pyscho-Social History: No Pertinent History Reproductive Disorders: No Pertinent History Comment: tachycardia - Past Surgical History Past Surgical History: Yes Neuro Surgical History: No Pertinent History Cardiac History: Cardiac Catheterization Respiratory Surgery: No Pertinent History GI Surgical History: Appendectomy, Cholecystectomy Genitourinary Surgical Hx: No Pertinent History Musculskeletal Surgical Hx: No Pertinent History Female Surgical History: Hysterectomy Other Surgical History: release of 1st dorsal compartment, 3 laproscopy female. Significant Family History: no pertinent family hx (No family history pertaining to this admission reported.) - Social History Smoking Status: Current every day smoker How long have you smoked: 50yrs Exposure to second hand smoke: No Alcohol: Occasionally Drug Use: none - Social Determinants of Health Will the patient participate in the screening: Yes Do you worry about a steady place to live?: No Do you have any problems with any of the following?: No known problems In the past 12 months,have you had to go without utilities?: No Have you or anyone in your house had to go without enough: No Transportation Issues: No Has anyone in your support network made you feel unsafe?: No Does the patient want assistance with any of the above?: No - Physical Exam Vital Signs: Vital Signs - 24 hr Temp Pulse Resp BP BP Pulse Ox 12/29/24 19:49 58 L 18 92 L 12/29/24 18:54 58 L 18 88 L 12/29/24 18:27 96.8 F 83 130/84 91 L 12/29/24 17:48 86 L 12/29/24 17:00 78 27 H 129/89 96 12/29/24 16:30 77 27 H 128/78 94 L 12/29/24 16:25 78 22 117/76 98 12/29/24 16:00 78 22 117/76 97 12/29/24 15:44 84 32 H 92 L 12/29/24 15:31 80 26 H 146/69 92 L 12/29/24 15:30 92 L 12/29/24 15:25 97.5 F 85 27 H 146/69 86 L General Appearance: no apparent distress Neurologic Exam: alert, oriented x 3, cooperative, normal mood/affect Eye Exam: eyes nml inspection Ears, Nose, Throat Exam: normal ENT inspection, moist mucous membranes Neck Exam: normal inspection Respiratory Exam: diminished breath sounds, wheezing Cardiovascular Exam: regular rate/rhythm, normal heart sounds Gastrointestinal/Abdomen Exam: soft, normal bowel sounds Skin Exam: normal color Results - Labs Lab/Micro Results: Lab Results-Last 24 Hours 12/29/24 12/29/24 12/29/24 Range/Units 16:00 16:00 18:06 WBC 11.5 H (3.98-10.04) x10^3/uL RBC 4.02 (3.93-5.22) x10^6/uL Hgb 12.6 (11.2-15.7) g/dL Hct 39.0 (34.1-44.9) % MCV 97.0 H (79.4-94.8) fL MCH 31.3 (25.6-32.2) pg MCHC 32.3 (32.2-35.5) g/dL RDW 13.8 (11.7-14.4) % Plt Count 283 (182-369) x10^3/uL MPV 8.5 L (9.4-12.3) fL Gran % 79.0 H (34.0-71.1) % Immature Gran % (Auto) 0.3 (0.001-0.429) % Nucleat RBC Rel Count 0.0 (0.00-0.2) % Eos # (Auto) 0.08 (0.04-0.36) x10^3/uL Immature Gran # (Auto) 0.04 H (0.001-0.031) x10^3u/L Absolute Lymphs (auto) 0.81 L (1.18-3.74) x10^3/uL Absolute Monos (auto) 1.47 H (0.24-0.86) x10^3/uL Absolute Nucleated RBC 0.00 (0.00-0.012) x10^3u/L Lymphocytes % 7.0 L (19.3-51.7) % Monocytes % 12.7 H (4.7-12.5) % Eosinophils % 0.7 (0.7-5.8) % Basophils % 0.3 (0.1-1.2) % Absolute Granulocytes 9.09 H (1.56-6.13) x10^3/uL Basophils # 0.04 (0.01-0.08) x10^3/uL Sodium 129 L (135-145) mmol/L Potassium 3.9 (3.5-5.1) mmol/L Chloride 91 L (98-107) mmol/L Carbon Dioxide 29 (22-30) mmol/L Anion Gap 12.8 (5-15) MEQ/L BUN 14 (7-17) mg/dL Creatinine 0.69 (0.52-1.04) mg/dL Estimated GFR 92.2 ML/MIN Glucose 118 H (74-106) mg/dL Calcium 9.1 (8.4-10.2) mg/dL Magnesium 1.5 L (1.6-2.3) mg/dL Total Bilirubin 0.90 (0.2-1.3) mg/dL AST 30 (14-36) U/L ALT 20 (0-35) U/L Alkaline Phosphatase 146 H (38-126) U/L Serum Total Protein 7.7 (6.3-8.2) g/dL Albumin 4.4 (3.5-5.0) g/dL Influenza Type A Ag NEGATIVE (NEGATIVE) Influenza Type B Ag NEGATIVE (NEGATIVE) RSV (PCR) NEGATIVE (NEGATIVE) SARS-CoV-2 (PCR) NEGATIVE (NEGATIVE) - Radiology Impressions Radiology Exams & Impressions: Radiology Procedures Category Date Time Status CHEST 1 VIEW (PORTABLE) Stat Exams 12/29/24 15:34 Completed - Other Procedures and Tests Respiratory Therapy 12/29/24 18:52 Oxygen Nasal Cannula 2 lpm 12/29/24 18:53 Respiratory Therapy Assessment DAILY 12/29/24 20:38 Respiratory Therapy Consult ONCE Assessment/Plan (1) Acute respiratory failure with hypoxia Current Visit: No Status: Acute Assessment & Plan: Continue supplemental oxygen as needed Continue management for COPD exacerbation Code(s): J96.01 - ACUTE RESPIRATORY FAILURE WITH HYPOXIA (2) COPD exacerbation Current Visit: Yes Status: Acute Assessment & Plan: DuoNebs, will start course of prednisone 40 mg for 5 days Patient to follow-up with filtering machine tender helper next week Code(s): J44.1 - CHRONIC OBSTRUCTIVE PULMONARY DISEASE W (ACUTE) EXACERBATION (3) Hyponatremia Current Visit: Yes Status: Acute Assessment & Plan: Monitor clinically, will hydrate with gentle IV fluids Code(s): E87.1 - HYPO-OSMOLALITY AND HYPONATREMIA (4) Hypomagnesemia Current Visit: Yes Status: Acute Assessment & Plan: Replete magnesium Code(s): E83.42 - HYPOMAGNESEMIA (5) Leukocytosis Current Visit: Yes Status: Acute Qualifiers: Leukocytosis type: unspecified Qualified Code(s): D72.829 - Elevated white blood cell count, unspecified Assessment & Plan: No evidence of infection Monitor clinically Code(s): D72.829 - ELEVATED WHITE BLOOD CELL COUNT, UNSPECIFIED (6) HLD (hyperlipidemia) Current Visit: No Status: Chronic Qualifiers: Hyperlipidemia type: unspecified Qualified Code(s): E78.5 - Hyperlipidemia, unspecified Assessment & Plan: Continue statin Code(s): E78.5 - HYPERLIPIDEMIA, UNSPECIFIED (7) HTN (hypertension) Current Visit: No Status: Chronic Qualifiers: Hypertension type: primary hypertension Qualified Code(s): I10 - Essential (primary) hypertension Assessment & Plan: Continue metoprolol and amlodipine Code(s): I10 - ESSENTIAL (PRIMARY) HYPERTENSION (8) Smoker Current Visit: No Status: Chronic Assessment & Plan: Counseled about smoking cessation Start nicotine patch Code(s): F17.200 - NICOTINE DEPENDENCE, UNSPECIFIED, UNCOMPLICATED Telemedicine Encounter - Telemedicine Encounter Telemedicine Encounter: DVT PPx with heparin Full code Plan of care discussed with patient and RN "The entirety of this encounter was performed via Telemedicine" This visit was performed using real-time audio and video connection between my location and thepatients locationwith the assistance of a surrogateat the patients location. Written or verbal consent was obtained from the patient/guardian to perform this visit usingsynchronoustelemedicine technology. Any patient questions regarding the telemedicine interaction were answered.
[2024-12-29] MEDS: MAG-OX 400 PO SCH (21:37)
[2024-12-29] MEDS: Lopressor 50 MG PO SCH (21:37)
[2024-12-29] MEDS: NICODERM CQ 14 MG TOP SCH (21:38)
[2024-12-29] MEDS: HEPARIN 5000 UNITS/0.5 ML (HIGH RISK MED) SQ SCH (21:38)
[2024-12-29] MEDS: Zocor 10MG PO SCH (21:38)
[2024-12-29] MEDS: BENADRYL 25 MG CAPSULE PO ONE (21:59)
[2024-12-29] MEDS: TYLENOL 325 MG PO PRN (21:59)
[2024-12-29] MEDS ORDERED: NON-FORMULARY ITEM (Atorvastatin Calcium 10 MG Tablet) PO SCH (22:00)
[2024-12-30 04:31] LABS: BASOPHIL % 0.0 % (0.1-1.2); Basophil (Absolute #) 0 x10^3/uL (0.01-0.08); Eosinophil (Absolute #) 0 x10^3/uL (0.04-0.36); Hematocrit 37.2 % (34.1-44.9); Hemoglobin 11.9 g/dL (11.2-15.7); IMMATURE GRAN # 0.04 x10^3u/L (0.001-0.031); IMMATURE GRAN % 0.5 % (0.001-0.429); Lymphocyte (Absolute #) 0.36 x10^3/uL (1.18-3.74); Mean Corpuscular Hemoglobin 30.9 pg (25.6-32.2); Mean Corpuscular Hgb Concent. 32.0 g/dL (32.2-35.5); Monocyte (Absolute #) 0.15 x10^3/uL (0.24-0.86); NUCLEATED RBC # 0.00 x10^3u/L (0.00-0.012); NUCLEATED RBC % 0.0 % (0.00-0.2); Platelet Count 291 x10^3/uL (182-369); Red Blood Count 3.85 x10^6/uL (3.93-5.22); White Blood Count 8.8 x10^3/uL (3.98-10.04)
[2024-12-30 04:44] LABS: Calcium 8.8 mg/dL (8.4-10.2); Carbon Dioxide 29.0 mmol/L (22-30); Creatinine 1 0.73 mg/dL (0.52-1.04); EST GLOMERULAR FILTRATION RATE 87.3 ML/MIN; Glucose 179.0 mg/dL (74-106); Potassium 4.5 mmol/L (3.5-5.1); SGOT/AST 30.0 U/L (14-36); SGPT/ALT 19.0 U/L (0-35); Total Protein 7.2 g/dL (6.3-8.2)
--- NOTE | 2024-12-30 05:10 | PCM.NOTE ---
Date and Time: 12/30/24 0504 Subjective Assessment: is a 74-year-old woman with COPD, arrhythmia, hyperlipidemia, and hypertension presented on 12-29-24 with two days of progressive dyspnea and productive cough unrelieved by home nebulizers. She reported pleuritic chest discomfort only when coughing, without exertional chest pain, palpitations, or radiation. On arrival she was tachypneic and hypoxic at 86% on room air, improving to 94% on 2 L nasal cannula. CXR demonstrated hyperinflation and chronic parenchymal changes without infiltrate, effusion, or cardiomegaly. Labs revealed mild leukocytosis (11.5) consistent with inflammatory stress vs early infection, hyponatremia (129), hypomagnesemia (1.5), and isolated alkaline phosphatase elevation (146) without AST/ALT elevation. She received IV methylprednisolone and nebulized albuterol in the ED with partial improvement. Admitted for COPD exacerbation, hypoxemia, and electrolyte derangements. 12/30/24: The patient was evaluated at the bedside. She reports persistent dyspnea, currently requiring 3 L/min nasal cannula oxygen. She states her baseline requirement is 2 L PRN but notes increased continuous use over the past several days. She endorses ongoing productive cough with thick green sputum. She denies fever, chest pain, abdominal pain, nausea, or vomiting. Bilateral lower-ext remity edema is present and reported as chronic by the patient. D-dimer remains elevated; CT chest is currently pending to further evaluate etiology of hypoxia. The patient expressed a desire for discharge today due to a work-related event at [employer]. The importance of completing diagnostic evaluation and monitoring clinical course was discussed. She verbalized understanding and is agreeable to remain hospitalized overnight, with consideration for discharge tomorrow morning pending clinical stability, imaging results, and overall response to treatment. Azithromycin has been initia - Review of Systems Constitutional: No Symptoms Eyes: No Symptoms Ears, Nose, & Throat: No Symptoms Respiratory: Cough, Short Of Breath, Wheezing Cardiac: Edema (BLE edema) Abdominal/Gastrointestinal: No Symptoms Genitourinary Symptoms: No Symptoms Musculoskeletal: No Symptoms Skin: No Symptoms Neurological: No Symptoms Psychological: No Symptoms Endocrine: No Symptoms Hematologic/Lymphatic: No Symptoms Immunological/Allergic: No Symptoms Objective Exam General Appearance: no apparent distress Neurologic Exam: alert, oriented x 3, cooperative Skin Exam: normal color Eye Exam: PERRL Ears, Nose, Throat Exam: normal ENT inspection Neck Exam: normal inspection Respiratory Exam: crackles/rales, wheezing Cardiovascular Exam: regular rate/rhythm, normal heart sounds Gastrointestinal/Abdomen Exam: soft, normal bowel sounds Extremity Exam: swelling (BLE edema non-pitting) Back Exam: normal inspection Pelvic Exam: deferred Rectal Exam: deferred Objective Data Vital Signs: Vital Signs - 24 hr Temp Pulse Resp BP BP Pulse Ox 12/30/24 04:00 97.3 F 80 26 H 133/61 92 L 12/30/24 00:53 79 16 94 L 12/29/24 23:40 97.2 F 75 22 122/60 93 L 12/29/24 21:00 89 12/29/24 19:49 58 L 18 92 L 12/29/24 18:54 58 L 18 88 L 12/29/24 18:27 96.8 F 83 130/84 91 L 12/29/24 17:48 86 L 12/29/24 17:00 78 27 H 129/89 96 12/29/24 16:30 77 27 H 128/78 94 L 12/29/24 16:25 78 22 117/76 98 12/29/24 16:00 78 22 117/76 97 12/29/24 15:44 84 32 H 92 L 12/29/24 15:31 80 26 H 146/69 92 L 12/29/24 15:30 92 L 12/29/24 15:25 97.5 F 85 27 H 146/69 86 L Pain Assessment - Last Documented Pain Intensity 0 Pain Scale Used 0-10 Pain Scale Intake and Output: Intake & Output 12/27/24 12/28/24 12/29/24 12/30/24 11:59 11:59 11:59 11:59 Intake Total 923 Balance 923 Weight 59.8 kg Lab Results: Lab Results-Last 24 Hours 12/29/24 12/29/24 12/29/24 Range/Units 16:00 16:00 18:06 WBC 11.5 H (3.98-10.04) x10^3/uL RBC 4.02 (3.93-5.22) x10^6/uL Hgb 12.6 (11.2-15.7) g/dL Hct 39.0 (34.1-44.9) % MCV 97.0 H (79.4-94.8) fL MCH 31.3 (25.6-32.2) pg MCHC 32.3 (32.2-35.5) g/dL RDW 13.8 (11.7-14.4) % Plt Count 283 (182-369) x10^3/uL MPV 8.5 L (9.4-12.3) fL Gran % 79.0 H (34.0-71.1) % Immature Gran % (Auto) 0.3 (0.001-0.429) % Nucleat RBC Rel Count 0.0 (0.00-0.2) % Eos # (Auto) 0.08 (0.04-0.36) x10^3/uL Immature Gran # (Auto) 0.04 H (0.001-0.031) x10^3u/L Absolute Lymphs (auto) 0.81 L (1.18-3.74) x10^3/uL Absolute Monos (auto) 1.47 H (0.24-0.86) x10^3/uL Absolute Nucleated RBC 0.00 (0.00-0.012) x10^3u/L Lymphocytes % 7.0 L (19.3-51.7) % Monocytes % 12.7 H (4.7-12.5) % Eosinophils % 0.7 (0.7-5.8) % Basophils % 0.3 (0.1-1.2) % Absolute Granulocytes 9.09 H (1.56-6.13) x10^3/uL Basophils # 0.04 (0.01-0.08) x10^3/uL Sodium 129 L (135-145) mmol/L Potassium 3.9 (3.5-5.1) mmol/L Chloride 91 L (98-107) mmol/L Carbon Dioxide 29 (22-30) mmol/L Anion Gap 12.8 (5-15) MEQ/L BUN 14 (7-17) mg/dL Creatinine 0.69 (0.52-1.04) mg/dL Estimated GFR 92.2 ML/MIN Glucose 118 H (74-106) mg/dL Calcium 9.1 (8.4-10.2) mg/dL Magnesium 1.5 L (1.6-2.3) mg/dL Total Bilirubin 0.90 (0.2-1.3) mg/dL AST 30 (14-36) U/L ALT 20 (0-35) U/L Alkaline Phosphatase 146 H (38-126) U/L Serum Total Protein 7.7 (6.3-8.2) g/dL Albumin 4.4 (3.5-5.0) g/dL Influenza Type A Ag NEGATIVE (NEGATIVE) Influenza Type B Ag NEGATIVE (NEGATIVE) RSV (PCR) NEGATIVE (NEGATIVE) SARS-CoV-2 (PCR) NEGATIVE (NEGATIVE) 12/30/24 12/30/24 Range/Units 04:15 04:15 WBC 8.8 (3.98-10.04) x10^3/uL RBC 3.85 L (3.93-5.22) x10^6/uL Hgb 11.9 (11.2-15.7) g/dL Hct 37.2 (34.1-44.9) % MCV 96.6 H (79.4-94.8) fL MCH 30.9 (25.6-32.2) pg MCHC 32.0 L (32.2-35.5) g/dL RDW 13.7 (11.7-14.4) % Plt Count 291 (182-369) x10^3/uL MPV 8.8 L (9.4-12.3) fL Gran % 93.7 H (34.0-71.1) % Immature Gran % (Auto) 0.5 H (0.001-0.429) % Nucleat RBC Rel Count 0.0 (0.00-0.2) % Eos # (Auto) 0 L (0.04-0.36) x10^3/uL Immature Gran # (Auto) 0.04 H (0.001-0.031) x10^3u/L Absolute Lymphs (auto) 0.36 L (1.18-3.74) x10^3/uL Absolute Monos (auto) 0.15 L (0.24-0.86) x10^3/uL Absolute Nucleated RBC 0.00 (0.00-0.012) x10^3u/L Lymphocytes % 4.1 L (19.3-51.7) % Monocytes % 1.7 L (4.7-12.5) % Eosinophils % 0.0 L (0.7-5.8) % Basophils % 0.0 L (0.1-1.2) % Absolute Granulocytes 8.29 H (1.56-6.13) x10^3/uL Basophils # 0 L (0.01-0.08) x10^3/uL Sodium 130 L (135-145) mmol/L Potassium 4.5 (3.5-5.1) mmol/L Chloride 94 L (98-107) mmol/L Carbon Dioxide 29 (22-30) mmol/L Anion Gap 11.4 (5-15) MEQ/L BUN 13 (7-17) mg/dL Creatinine 0.73 (0.52-1.04) mg/dL Estimated GFR 87.3 ML/MIN Glucose 179 H (74-106) mg/dL Calcium 8.8 (8.4-10.2) mg/dL Magnesium (1.6-2.3) mg/dL Total Bilirubin 0.40 (0.2-1.3) mg/dL AST 30 (14-36) U/L ALT 19 (0-35) U/L Alkaline Phosphatase 139 H (38-126) U/L Serum Total Protein 7.2 (6.3-8.2) g/dL Albumin 3.9 (3.5-5.0) g/dL Influenza Type A Ag (NEGATIVE) Influenza Type B Ag (NEGATIVE) RSV (PCR) (NEGATIVE) SARS-CoV-2 (PCR) (NEGATIVE) Radiology Exams: Radiology Procedures Category Date Time Status CHEST 1 VIEW (PORTABLE) Stat Exams 12/29/24 15:34 Completed Medications: Medications Generic Name Dose Route Start Last Admin Trade Name Freq PRN Reason Stop Dose Admin Acetaminophen 325 mg 12/29/24 20:38 12/29/24 21:59 Acetaminophen 325 Mg Tablet PO 01/28/25 20:37 325 mg Q4H PRN PRN Administration PAIN, FEVER, HEADACHE Albuterol Sulfate 4 puff 12/29/24 19:01 Albuterol Common Canister Inhaler IH 01/28/25 19:00 Q4H PRN PRN SHORTNESS OF BREATH/WHEEZING Albuterol/Ipratropium 3 ml 12/29/24 19:00 12/30/24 00:52 Ipratropium/Albuterol Sulfate 3 Ml Ampul.Neb IH 01/28/25 18:59 3 ml Q6HRT LORRIE Administration Amlodipine Besylate 5 mg 12/30/24 10:00 Amlodipine Besylate 5 Mg Tablet PO 01/29/25 09:59 DAILY LORRIE Aspirin 81 mg 12/30/24 10:00 Aspirin 81 Mg Tablet.Ec PO 01/29/25 09:59 DAILY LORRIE Diphenhydramine HCl 25 mg 12/29/24 21:55 12/29/24 21:59 Diphenhydramine Hcl 25 Mg Capsule PO 12/29/24 21:56 25 mg ONCE ONE Administration Famotidine 20 mg 12/30/24 10:00 Famotidine 20 Mg Tablet PO 01/29/25 09:59 DAILY LORRIE Heparin Sodium (Beef Lung) 5,000 unit 12/29/24 22:00 12/29/24 21:38 Heparin 5000 Units/0.5 Ml 5,000 Unit/0.5 Ml Syr SQ 01/28/25 21:59 5,000 unit BID LORRIE Administration Sodium Chloride 1,000 mls @ 50 mls/hr 12/29/24 21:00 12/29/24 21:38 Sodium Chloride 0.9% 1000 Ml IV 01/28/25 20:59 50 mls/hr .Q20H LORRIE Administration Magnesium Oxide 400 mg 12/29/24 22:00 12/29/24 21:37 Magnesium Oxide 400 Mg Tablet PO 01/28/25 21:59 400 mg BID LORRIE Administration Metoprolol Tartrate 50 mg 12/29/24 22:00 12/29/24 21:37 Metoprolol Tartrate 50 Mg Tablet PO 01/28/25 21:59 50 mg BID LORRIE Administration Nicotine 14 mg 12/29/24 20:45 12/29/24 21:38 Nicotine 14 Mg/Patch Patch TOP 01/28/25 20:44 14 mg Q24H LORRIE Administration Non-Formulary Medication 600 mg 12/30/24 10:00 Calcium Carbonate [Calcium] PO 01/29/25 09:59 DAILY LORRIE Prednisone 40 mg 12/30/24 10:00 Prednisone 20 Mg Tablet PO 01/29/25 09:59 DAILY LORRIE Simvastatin 10 mg 12/29/24 22:00 12/29/24 21:38 Simvastatin 10 Mg Tablet PO 01/28/25 21:59 10 mg HS LORRIE Administration Discontinued Medications Generic Name Dose Route Start Last Admin Trade Name Josie PRN Reason Stop Dose Admin Albuterol/Ipratropium Confirm 12/29/24 15:32 Ipratropium/Albuterol Sulfate 3 Ml Ampul.Neb Administered 12/29/24 15:33 Dose 3 ml IH .STK-MED ONE Albuterol/Ipratropium 3 ml 12/29/24 15:43 12/29/24 15:40 Ipratropium/Albuterol Sulfate 3 Ml Ampul.Neb IH 12/29/24 15:44 3 ml STAT ONE Administration Methylprednisolone Sodium 0 mg 12/29/24 16:49 12/29/24 17:06 Succinate 125 mg/ Sterile IV 12/29/24 16:50 125 mg Water 2 ml STAT ONE Administration Methylprednisolone Sodium Succinate Confirm 12/29/24 17:02 Methylprednis Sod Succ 125 Mg/2 Ml Vial Administered 12/29/24 17:03 Dose 125 mg .ROUTE .STK-MED ONE Non-Formulary Medication 10 mg 12/29/24 22:00 Atorvastatin Calcium PO 01/28/25 21:59 HS LORRIE Sterile Water Confirm 12/29/24 17:02 Water For Injection,Sterile 10 Ml Vial Administered 12/29/24 17:03 Dose 10 ml IJ .STK-MED ONE Assessment/Plan (1) Acute respiratory failure with hypoxia Current Visit: No Status: Acute Assessment & Plan: -Secondary to COPD exacerbation -CXR without infiltrate; mild leukocytosis; clinical bronchospasm and hypoxia. -Continue systemic steroids (methylprednisolone - transitioned to prednisone 40mg daily). -Scheduled DuoNebs; PRN albuterol. -Azithromycin added -Oxygen to target SpO2 89-92%; wean as tolerated 2L prn at baseline currently at 3L -ABG prn if increasing work of breathing; lethary, confusion -Flutter, IS -D-dimer elevated at 2.01 -CTA chest ordered and pending Code(s): J96.01 - ACUTE RESPIRATORY FAILURE WITH HYPOXIA (2) COPD exacerbation Current Visit: Yes Status: Acute Assessment & Plan: -see ARF above Code(s): J44.1 - CHRONIC OBSTRUCTIVE PULMONARY DISEASE W (ACUTE) EXACERBATION (3) Hypomagnesemia Current Visit: Yes Status: Acute Assessment & Plan: -Oral mag oxide started- continue -Repeat mag at 1.6 Code(s): E83.42 - HYPOMAGNESEMIA (4) Hyponatremia Current Visit: Yes Status: Acute Assessment & Plan: -Likely hypovolemic vs diuretic effect; monitor sodium daily -Sodium now improved to 130 -Continue gentle hydration IVF Code(s): E87.1 - HYPO-OSMOLALITY AND HYPONATREMIA (5) Leukocytosis Current Visit: Yes Status: Acute Qualifiers: Leukocytosis type: unspecified Qualified Code(s): D72.829 - Elevated white blood cell count, unspecified Assessment & Plan: -Mild; likely stress-related and COPD flare - now wnl at 8.8 -Trend CBC -UA pending Code(s): D72.829 - ELEVATED WHITE BLOOD CELL COUNT, UNSPECIFIED (6) HLD (hyperlipidemia) Current Visit: No Status: Chronic Qualifiers: Hyperlipidemia type: unspecified Qualified Code(s): E78.5 - Hyperlipidemia, unspecified Assessment & Plan: -continue statin Code(s): E78.5 - HYPERLIPIDEMIA, UNSPECIFIED (7) HTN (hypertension) Current Visit: No Status: Chronic Qualifiers: Hypertension type: primary hypertension Qualified Code(s): I10 - Essential (primary) hypertension Assessment & Plan: -continue amlodipine VTE: Heparin PPI: Protonix Dispo: 1-2 days Plan of care time spent 40 mins Code(s): I10 - ESSENTIAL (PRIMARY) HYPERTENSION
[2024-12-30 07:13] LABS: Slide Review 1 YES
[2024-12-30] MEDS ORDERED: ZITHROMAX IV IV ONE (09:09)
--- NOTE | 2024-12-30 09:10 | XRAY ---
Indication: Dyspnea. Multiple contiguous axial images obtained through the chest using 80 cc Isovue 370 contrast and PE protocol. Comparison: None Good opacification pulmonary arteries to include lobar and segmental branches. No pulmonary embolus. Heart not enlarged. Aorta mildly arteriosclerotic without aneurysm/dissection. No pathologic mediastinal/hilar lymphadenopathy. Small hiatal hernia. Lungs demonstrates a few patchy left upper lobe and lingula interstitial alveolar opacities with small left effusion and mild left base compressive atelectasis. Lateral left lower lobe also demonstrates subpleural irregular triangular masslike opacity measuring at least 3.2 x 2.0 cm, possible subsegmental atelectasis. Malignancy not completely excluded. Remaining lungs demonstrates mild pulmonary emphysema and small left upper lobe calcified granuloma. Bony thorax intact with osteopenia and minimal/mild degenerative changes throughout spine. Limited upper abdomen demonstrates 1.1 cm left renal cyst. Impression: 1. Negative pulmonary embolus. 2. Patchy left upper lobe/lingula interstitial alveolar opacities with small effusion. Rule out pneumonia/pneumonitis. 3. Left lower lobe subpleural irregular triangular masslike opacity, possibly subsegmental atelectasis. Malignancy not completely excluded. Outside comparison studies recommended if available. If not, PET-CT may yield further information. 4. Chronic findings including pulmonary emphysema, arteriosclerotic disease, hiatal hernia, chronic bony findings, left renal cysts, and old granulomatous disease.
[2024-12-30] MEDS: DELTASONE 20 MG PO SCH (09:12)
[2024-12-30] MEDS: Pepcid 20 MG PO SCH (09:12)
[2024-12-30] MEDS: Calcium 500MG W/Vit D Tablet PO SCH (09:13)
[2024-12-30] MEDS: NORVASC 5 MG PO SCH (09:13)
[2024-12-30] MEDS: ECOTRIN 81 MG PO SCH (09:13)
[2024-12-30] MEDS: ZITHROMAX IV*** 500 MG in Sodium Chloride 0.9% 250 ML 250 ML IV SCH (09:14)
[2024-12-30] MEDS ORDERED: NON-FORMULARY ITEM (Calcium Carbonate [Calcium] 600 MG Tablet) PO SCH (10:00)
[2024-12-30] MEDS: ROCEPHIN 1 GM / 100 ML NaCl 1 GM/100 ML IVPB IV SCH (10:48)
[2024-12-30] MEDS: PROVENTIL 2.5 MG/3 ML NEB IH PRN (11:12)
[2024-12-30] MEDS ORDERED: Sterile H2O 10 ml IJ ONE (21:29)
[2024-12-30] MEDS: solu-MEDROL 40 MG, Sterile H2O 10 ml 1 ML IV SCH (21:32)
[2024-12-31 04:53] LABS: BASOPHIL % 0.1 % (0.1-1.2); Basophil (Absolute #) 0.01 x10^3/uL (0.01-0.08); Eosinophil (Absolute #) 0 x10^3/uL (0.04-0.36); Hematocrit 35.5 % (34.1-44.9); Hemoglobin 11.3 g/dL (11.2-15.7); IMMATURE GRAN # 0.11 x10^3u/L (0.001-0.031); IMMATURE GRAN % 1.0 % (0.001-0.429); Lymphocyte (Absolute #) 0.41 x10^3/uL (1.18-3.74); Mean Corpuscular Hemoglobin 31.1 pg (25.6-32.2); Mean Corpuscular Hgb Concent. 31.8 g/dL (32.2-35.5); Monocyte (Absolute #) 0.69 x10^3/uL (0.24-0.86); NUCLEATED RBC # 0.00 x10^3u/L (0.00-0.012); NUCLEATED RBC % 0.0 % (0.00-0.2); Platelet Count 332 x10^3/uL (182-369); Red Blood Count 3.63 x10^6/uL (3.93-5.22); White Blood Count 11.3 x10^3/uL (3.98-10.04)
[2024-12-31 04:57] LABS: Calcium 8.7 mg/dL (8.4-10.2); Carbon Dioxide 31.0 mmol/L (22-30); Creatinine 1 0.67 mg/dL (0.52-1.04); EST GLOMERULAR FILTRATION RATE 92.8 ML/MIN; Glucose 182.0 mg/dL (74-106); Potassium 4.5 mmol/L (3.5-5.1); SGOT/AST 25.0 U/L (14-36); SGPT/ALT 18.0 U/L (0-35); Total Protein 7.0 g/dL (6.3-8.2)
--- NOTE | 2024-12-31 05:46 | PCM.DS ---
Discharge Summary Date of Admission: 12/29/24 18:15 Date of Discharge: 12/31/24 Admitting Physician: TERI AYALA MD Primary Care Provider: LIZETH CRUZ Allergies Allergies cat dander Allergy (Severe, Verified 08/05/24 21:05) Shortness of Breath perfume Adverse Reaction (Intermediate, Verified 08/05/24 21:05) Shortness of Breath Hospital Summary - Hospital Course Hospital Course: The patient, a 74-year-old woman with a history of COPD, hypertension, hyperlipidemia, and arrhythmia, presented with two days of worsening dyspnea and productive cough unrelieved by home nebulizer therapy. She denied fever or exertional chest pain but reported pleuritic chest discomfort with coughing. On arrival, she was tachypneic and hypoxic at 86% on room air, improving to 94% on 2 L nasal cannula. Chest X-ray showed hyperinflation and chronic parenchymal changes without infiltrate or effusion. Initial labs demonstrated mild leukocytosis (WBC 11.5), hyponatremia (Na 129), hypomagnesemia (Mg 1.5), and isolated alkaline phosphatase elevation (146 U/L) with normal transaminases. She received IV methylprednisolone and nebulized bronchodilators with partial relief and was admitted for further management of acute COPD exacerbation with hypoxemia. On 12/30, she remained dyspneic, now requiring 3 L/min oxygen (baseline 2 L PRN). Sputum was thick and green. Physical exam noted mild bilateral lower extremity edema, which was chronic per patient.Given an elevated D-dimer (2.01), a CTA chest was performed, showing no pulmonary embolism but revealing patchy interstitial and alveolar opacities in the left upper lobe and lingula with a small pleural effusion, consistent with pneumonia or pneumonitis. Additionally, there was a subpleural triangular opacity in the left lower lobe favored to represent subsegmental atelectasis, though malignancy could not be fully excluded. Outpatient pulmonology follow-up and repeat imaging were recommended for reassessment.She was transitioned to prednisone 40 mg daily, continued on scheduled DuoNebs and PRN albuterol, and treated with ceftriaxone and azithromycin for community-acquired pneumonia coverage. Her electrolytes improved (Na 130, Mg 1.6). Despite recommendations to remain hospitalized for continued oxygen weaning and monitoring, the patient was insistent on discharge due to a personal commitment. Risks and benefits were reviewed; she voiced understanding and opted to discharge home on supplemental oxygen and oral antibiotics. Discharge Note New Diagnosis:Pneumonia/COPD exacerbation New Medications: Cefuroxime/azithromycin 250mg x 2 more doses/Prednisone 20mg bid x 5 days Follow Up: Pulm/PCP Results pending: sputum culture I spent 35 minutes [id number] with the patient on the day of discharge performing discharge exam, discussing hospital stay and discharge instructions with patient and caregivers, preparation of discharge records, prescriptions & referral forms and addressing any questions/concerns the patient had as documented above. - Vitals & Intake/Output Vital Signs: Vital Signs Temperature 97.9 F 12/31/24 03:48 Pulse Rate 88 12/31/24 03:48 Respiratory Rate 25 H 12/31/24 03:48 Blood Pressure 139/64 12/31/24 03:48 O2 Sat by Pulse Oximetry 92 L 12/31/24 03:48 Intake & Output: Intake & Output 12/28/24 12/29/24 12/30/24 12/31/24 11:59 11:59 11:59 11:59 Intake Total 1684 660 Balance 1684 660 Weight 59.8 kg - Lab Result Diagrams: 12/31/24 04:15 12/31/24 04:15 Lab Results-Last 24 Hrs: Lab Results-Last 24 Hours 12/30/24 12/30/24 12/30/24 Range/Units 04:15 04:15 04:15 WBC (3.98-10.04) x10^3/uL RBC (3.93-5.22) x10^6/uL Hgb (11.2-15.7) g/dL Hct (34.1-44.9) % MCV (79.4-94.8) fL MCH (25.6-32.2) pg MCHC (32.2-35.5) g/dL RDW (11.7-14.4) % Plt Count (182-369) x10^3/uL MPV (9.4-12.3) fL Gran % (34.0-71.1) % Immature Gran % (Auto) (0.001-0.429) % Nucleat RBC Rel Count (0.00-0.2) % Eos # (Auto) (0.04-0.36) x10^3/uL Immature Gran # (Auto) (0.001-0.031) x10^3u/L Absolute Lymphs (auto) (1.18-3.74) x10^3/uL Absolute Monos (auto) (0.24-0.86) x10^3/uL Absolute Nucleated RBC (0.00-0.012) x10^3u/L Lymphocytes % (19.3-51.7) % Monocytes % (4.7-12.5) % Eosinophils % (0.7-5.8) % Basophils % (0.1-1.2) % Absolute Granulocytes (1.56-6.13) x10^3/uL Basophils # (0.01-0.08) x10^3/uL D-Dimer 2.01 H* (0.0-0.50) mg/L Sodium (135-145) mmol/L Potassium (3.5-5.1) mmol/L Chloride (98-107) mmol/L Carbon Dioxide (22-30) mmol/L Anion Gap (5-15) MEQ/L BUN (7-17) mg/dL Creatinine (0.52-1.04) mg/dL Estimated GFR ML/MIN Glucose (74-106) mg/dL Calcium (8.4-10.2) mg/dL Magnesium 1.6 (1.6-2.3) mg/dL Total Bilirubin (0.2-1.3) mg/dL AST (14-36) U/L ALT (0-35) U/L Alkaline Phosphatase (38-126) U/L NT-Pro-B Natriuret Pep (<300) pg/mL Serum Total Protein (6.3-8.2) g/dL Albumin (3.5-5.0) g/dL Slides for Path Review YES 12/30/24 12/31/24 12/31/24 Range/Units 04:15 04:15 04:15 WBC 11.3 H (3.98-10.04) x10^3/uL RBC 3.63 L (3.93-5.22) x10^6/uL Hgb 11.3 (11.2-15.7) g/dL Hct 35.5 (34.1-44.9) % MCV 97.8 H (79.4-94.8) fL MCH 31.1 (25.6-32.2) pg MCHC 31.8 L (32.2-35.5) g/dL RDW 14.0 (11.7-14.4) % Plt Count 332 (182-369) x10^3/uL MPV 10.0 (9.4-12.3) fL Gran % 89.2 H (34.0-71.1) % Immature Gran % (Auto) 1.0 H (0.001-0.429) % Nucleat RBC Rel Count 0.0 (0.00-0.2) % Eos # (Auto) 0 L (0.04-0.36) x10^3/uL Immature Gran # (Auto) 0.11 H (0.001-0.031) x10^3u/L Absolute Lymphs (auto) 0.41 L (1.18-3.74) x10^3/uL Absolute Monos (auto) 0.69 (0.24-0.86) x10^3/uL Absolute Nucleated RBC 0.00 (0.00-0.012) x10^3u/L Lymphocytes % 3.6 L (19.3-51.7) % Monocytes % 6.1 (4.7-12.5) % Eosinophils % 0.0 L (0.7-5.8) % Basophils % 0.1 (0.1-1.2) % Absolute Granulocytes 10.12 H (1.56-6.13) x10^3/uL Basophils # 0.01 (0.01-0.08) x10^3/uL D-Dimer (0.0-0.50) mg/L Sodium 135 (135-145) mmol/L Potassium 4.5 (3.5-5.1) mmol/L Chloride 99 (98-107) mmol/L Carbon Dioxide 31 H (22-30) mmol/L Anion Gap 9.7 (5-15) MEQ/L BUN 15 (7-17) mg/dL Creatinine 0.67 (0.52-1.04) mg/dL Estimated GFR 92.8 ML/MIN Glucose 182 H (74-106) mg/dL Calcium 8.7 (8.4-10.2) mg/dL Magnesium (1.6-2.3) mg/dL Total Bilirubin 0.20 (0.2-1.3) mg/dL AST 25 (14-36) U/L ALT 18 (0-35) U/L Alkaline Phosphatase 125 (38-126) U/L NT-Pro-B Natriuret Pep 586 (<300) pg/mL Serum Total Protein 7.0 (6.3-8.2) g/dL Albumin 3.8 (3.5-5.0) g/dL Slides for Path Review Micro Results-Entire Visit: Microbiology 12/30/24 12:00 Gram Stain - Final Sputum - Expectorant - Radiology Exams Ordered Rad Exams-Entire Visit: Radiology Procedures Category Date Time Status CHEST 1 VIEW (PORTABLE) Stat Exams 12/29/24 15:34 Completed CHEST WITH CONTRAST [CT] Stat Exams 12/30/24 08:05 Completed ECHO W/2D AND DOPPLER [US] Urgent Exams 12/30/24 09:22 Taken - Procedures and Test Procedures and Tests throughout Hospitalization: Therapy Orders & Screens 12/29/24 15:43 Respiratory Therapy Assessment DAILY Comment: 12/29/24 18:51 RT Screen per Nursing Assess ONCE Comment: Protocol Order Physician Instructions: Greater than 3 points order RT Admission Screen Reason For Exam: Triggered on Admission Diagnosis: exacerbation of copd Diagnosis: exacerbation of copd Pneumonia: No Home O2: Yes Asthma: No CHF: No Home CPAP/BIPAP: No Home Nebs/MDI: Yes Total Points: 10 Smoking Cessation Education ONCE Comment: Diagnosis: exacerbation of copd Smoking Status: Current every day smoker How long have you smoked: 50yrs Have you smoked in the past 12 months: Yes Approximately how many cigarettes per day: 5 CIGS Do you dip or chew tobacco: No 12/29/24 18:52 Oxygen Nasal Cannula 2 lpm Comment: Diagnosis: exacerbation of copd 12/29/24 18:53 Respiratory Therapy Assessment DAILY Comment: Diagnosis: exacerbation of copd 12/29/24 20:38 Respiratory Therapy Consult ONCE Comment: Reason For Exam: Diagnosis: exacerbation of copd 12/30/24 08:15 Flutter Therapy UD Comment: Diagnosis: exacerbation of copd Incentive Spirometry UD Comment: Diagnosis: exacerbation of copd Final Diagnosis/Problem List - Final Discharge Diagnosis/Problem (1) Acute respiratory failure with hypoxia Current Visit: No Status: Acute Assessment & Plan: Secondary to COPD exacerbation with pneumonia. Continue prednisone 40 mg PO daily 5 days (taper per outpatient provider). Continue home oxygen 2 L/min PRN; wean as tolerated to maintain SpO2 > 90%. Encourage use of incentive spirometer and flutter valve for pulmonary hygiene. Follow-up with pulmonology in 1 week for reassessment and imaging review Code(s): J96.01 - ACUTE RESPIRATORY FAILURE WITH HYPOXIA (2) Pneumonia Current Visit: Yes Status: Acute Assessment & Plan: see ARF Code(s): J18.9 - PNEUMONIA, UNSPECIFIED ORGANISM (3) COPD exacerbation Current Visit: Yes Status: Acute Assessment & Plan: Continue DuoNeb (ipratropium/albuterol) q6h scheduled and albuterol inhaler PRN. Continue azithromycin 250mg x 2 days to complete course and transition to cefuroxime 500 mg PO BID 5 days for CAP coverage Reinforce smoking avoidance and adherence to inhaler regimen. Code(s): J44.1 - CHRONIC OBSTRUCTIVE PULMONARY DISEASE W (ACUTE) EXACERBATION (4) Hypomagnesemia Current Visit: Yes Status: Acute Assessment & Plan: resolved- continue magnesium oxide for 3 days with repeat level with OP labs Code(s): E83.42 - HYPOMAGNESEMIA (5) Hyponatremia Current Visit: Yes Status: Acute Assessment & Plan: Resolved Encouraged oral hydration and monitor sodium with PCP follow-up labs. Code(s): E87.1 - HYPO-OSMOLALITY AND HYPONATREMIA (6) Leukocytosis Current Visit: Yes Status: Acute Assessment & Plan: see ARF Code(s): D72.829 - ELEVATED WHITE BLOOD CELL COUNT, UNSPECIFIED (7) HLD (hyperlipidemia) Current Visit: No Status: Chronic Assessment & Plan: continue statin Code(s): E78.5 - HYPERLIPIDEMIA, UNSPECIFIED (8) HTN (hypertension) Current Visit: No Status: Chronic Assessment & Plan: continue home meds Code(s): I10 - ESSENTIAL (PRIMARY) HYPERTENSION (9) Abnormal finding on imaging Current Visit: Yes Status: Acute Assessment & Plan: CTA chest revealed subpleural triangular opacity in LLL, likely atelectasis but malignancy cannot be excluded. Pulmonology follow-up within 1 week for evaluation and repeat imaging. Recommend repeat CT chest in 68 weeks to confirm resolution or further characterize lesion. Outpatient provider to review for possible need of PET-CT or biopsy if opacity persists or enlarges. Code(s): R93.89 - ABNORMAL FINDINGS ON DX IMAGING OF OTH BODY STRUCTURES - Discharge Disposition: Home, Self-Care Condition: Stable Prescriptions: No Action Alendronate Sodium 70 mg PO GRADY Amlodipine Besylate 5 mg PO DAILY Aspirin EC 81 mg [Ecotrin 81 mg] 81 mg PO DAILY Niacin 200 mg PO DAILY Atorvastatin Calcium [Lipitor] 10 mg PO HS Famotidine 20 mg [Pepcid 20 MG] 20 mg PO DAILY Metoprolol Tartrate 50 mg [Lopressor 50 MG] 50 mg PO BID Albuterol Sulfate 1 neb IH Q6H PRN PRN PRN Reason: Shortness Of Breath Cyanocobalamin (Vitamin B-12) [Vitamin B12] 1,000 mcg PO DAILY Cholecalciferol (Vitamin D3) [Vitamin D3] 125 mcg PO SUMOWEFR Calcium Carbonate [Calcium] 600 mg PO DAILY Albuterol Sulfate [Albuterol Sulfate Hfa] 2 puff IH Q4HPRN PRN PRN Reason: Shortness Of Breath Furosemide 20 mg [Lasix 20 mg] 20 mg PO DAILY Instructions: COPD exacerbation - Discharge instructions Follow up with: LIZETH CRUZ [Primary Care Provider, [facility]]
[2024-12-31 07:03] LABS: Slide Review 1 YES
--- NOTE | 2024-12-31 07:34 | PCM.NOTE ---
Date and Time: 12/31/24 0728 Subjective Assessment: The patient, a 74-year-old woman with a history of COPD, hypertension, hyperlipidemia, and arrhythmia, presented with two days of worsening dyspnea and productive cough unrelieved by home nebulizer therapy. She denied fever or exertional chest pain but reported pleuritic chest discomfort with coughing. On arrival, she was tachypneic and hypoxic at 86% on room air, improving to 94% on 2 L nasal cannula. Chest X-ray showed hyperinflation and chronic parenchymal changes without infiltrate or effusion. Initial labs demonstrated mild leukocytosis (WBC 11.5), hyponatremia (Na 129), hypomagnesemia (Mg 1.5), and isolated alkaline phosphatase elevation (146 U/L) with normal transaminases. She received IV methylprednisolone and nebulized bronchodilators with partial relief and was admitted for further management of acute COPD exacerbation with hypoxemia. On 12/30, she remained dyspneic, now requiring 3 L/min oxygen (baseline 2 L PRN). Sputum was thick and green. Physical exam noted mild bilateral lower extremity edema, which was chronic per patient.Given an elevated D-dimer (2.01), a CTA chest was performed, showing no pulmonary embolism but revealing patchy interstitial and alveolar opacities in the left upper lobe and lingula with a small pleural effusion, consistent with pneumonia or pneumonitis. Additionally, there was a subpleural triangular opacity in the left lower lobe favored to represent subsegmental atelectasis, though malignancy could not be fully excluded. Outpatient pulmonology follow-up and repeat imaging were recommended for reassessment. She is continued on scheduled DuoNebs and PRN albuterol, solumedrol and treated with ceftriaxone and azithromycin for community-acquired pneumonia coverage. Her electrolytes improved (Na 130, Mg 1.6). 12/31/24: Met with patient bedside. Continues to require 3L of oxygen with complaints of dyspnea and cough. Lung sounds diminished with exp wheezing. Discussed CT scan which was negative for PE but showed patchy interstitial and alveolar opacities in the left upper lobe and lingula with a small pleural effusion, consistent with pneumonia or pneumonitis. Additionally, there was a subpleural triangular opacity in the left lower lobe favored to represent subsegmental atelectasis, though malignancy could not be fully excluded. Outpatient pulmonology follow-up and repeat imaging were recommended for reassessment. Patient is anxious for discharge today but has now agreed to stay. Will continue iv steroids and abx. - Review of Systems Constitutional: Weakness Eyes: No Symptoms Ears, Nose, & Throat: No Symptoms Respiratory: Cough, Short Of Breath, Wheezing Cardiac: Edema (BLE) Abdominal/Gastrointestinal: No Symptoms Genitourinary Symptoms: No Symptoms Musculoskeletal: No Symptoms Skin: No Symptoms Neurological: No Symptoms Psychological: No Symptoms Endocrine: No Symptoms Hematologic/Lymphatic: No Symptoms Immunological/Allergic: No Symptoms Objective Exam General Appearance: no apparent distress Neurologic Exam: alert, oriented x 3, cooperative Skin Exam: normal color Eye Exam: PERRL Ears, Nose, Throat Exam: normal ENT inspection Neck Exam: normal inspection Respiratory Exam: diminished breath sounds, wheezing Cardiovascular Exam: regular rate/rhythm, normal heart sounds Gastrointestinal/Abdomen Exam: soft, normal bowel sounds Extremity Exam: swelling (BLE edema trace) Back Exam: normal inspection Pelvic Exam: deferred Rectal Exam: deferred Objective Data Vital Signs: Vital Signs - 24 hr Temp Pulse Resp BP Pulse Ox 12/31/24 07:20 97.8 F 86 16 130/59 90 L 12/31/24 06:49 85 18 90 L 12/31/24 03:48 97.9 F 88 25 H 139/64 92 L 12/31/24 00:57 80 20 97 12/30/24 23:46 98.1 F 83 22 130/58 93 L 12/30/24 19:54 98.5 F 92 H 22 118/59 93 L 12/30/24 19:35 94 H 20 94 L 12/30/24 16:00 97.9 F 96 H 18 126/60 93 L 12/30/24 12:50 88 18 92 L 12/30/24 11:19 97.9 F 73 20 125/66 92 L 12/30/24 10:59 74 20 94 L 12/30/24 08:38 91 H 20 96 Pain Assessment - Last Documented Pain Intensity 0 Pain Scale Used 0-10 Pain Scale Intake and Output: Intake & Output 12/28/24 12/29/24 12/30/24 12/31/24 11:59 11:59 11:59 11:59 Intake Total 1684 660 Balance 1684 660 Weight 59.8 kg Lab Results: Lab Results-Last 24 Hours 12/30/24 12/30/24 12/31/24 Range/Units 04:15 04:15 04:15 WBC 11.3 H (3.98-10.04) x10^3/uL RBC 3.63 L (3.93-5.22) x10^6/uL Hgb 11.3 (11.2-15.7) g/dL Hct 35.5 (34.1-44.9) % MCV 97.8 H (79.4-94.8) fL MCH 31.1 (25.6-32.2) pg MCHC 31.8 L (32.2-35.5) g/dL RDW 14.0 (11.7-14.4) % Plt Count 332 (182-369) x10^3/uL MPV 10.0 (9.4-12.3) fL Gran % 89.2 H (34.0-71.1) % Immature Gran % (Auto) 1.0 H (0.001-0.429) % Nucleat RBC Rel Count 0.0 (0.00-0.2) % Eos # (Auto) 0 L (0.04-0.36) x10^3/uL Immature Gran # (Auto) 0.11 H (0.001-0.031) x10^3u/L Absolute Lymphs (auto) 0.41 L (1.18-3.74) x10^3/uL Absolute Monos (auto) 0.69 (0.24-0.86) x10^3/uL Absolute Nucleated RBC 0.00 (0.00-0.012) x10^3u/L Lymphocytes % 3.6 L (19.3-51.7) % Monocytes % 6.1 (4.7-12.5) % Eosinophils % 0.0 L (0.7-5.8) % Basophils % 0.1 (0.1-1.2) % Absolute Granulocytes 10.12 H (1.56-6.13) x10^3/uL Basophils # 0.01 (0.01-0.08) x10^3/uL D-Dimer 2.01 H* (0.0-0.50) mg/L Sodium (135-145) mmol/L Potassium (3.5-5.1) mmol/L Chloride (98-107) mmol/L Carbon Dioxide (22-30) mmol/L Anion Gap (5-15) MEQ/L BUN (7-17) mg/dL Creatinine (0.52-1.04) mg/dL Estimated GFR ML/MIN Glucose (74-106) mg/dL Calcium (8.4-10.2) mg/dL Total Bilirubin (0.2-1.3) mg/dL AST (14-36) U/L ALT (0-35) U/L Alkaline Phosphatase (38-126) U/L NT-Pro-B Natriuret Pep 586 (<300) pg/mL Serum Total Protein (6.3-8.2) g/dL Albumin (3.5-5.0) g/dL Slides for Path Review YES 12/31/24 Range/Units 04:15 WBC (3.98-10.04) x10^3/uL RBC (3.93-5.22) x10^6/uL Hgb (11.2-15.7) g/dL Hct (34.1-44.9) % MCV (79.4-94.8) fL MCH (25.6-32.2) pg MCHC (32.2-35.5) g/dL RDW (11.7-14.4) % Plt Count (182-369) x10^3/uL MPV (9.4-12.3) fL Gran % (34.0-71.1) % Immature Gran % (Auto) (0.001-0.429) % Nucleat RBC Rel Count (0.00-0.2) % Eos # (Auto) (0.04-0.36) x10^3/uL Immature Gran # (Auto) (0.001-0.031) x10^3u/L Absolute Lymphs (auto) (1.18-3.74) x10^3/uL Absolute Monos (auto) (0.24-0.86) x10^3/uL Absolute Nucleated RBC (0.00-0.012) x10^3u/L Lymphocytes % (19.3-51.7) % Monocytes % (4.7-12.5) % Eosinophils % (0.7-5.8) % Basophils % (0.1-1.2) % Absolute Granulocytes (1.56-6.13) x10^3/uL Basophils # (0.01-0.08) x10^3/uL D-Dimer (0.0-0.50) mg/L Sodium 135 (135-145) mmol/L Potassium 4.5 (3.5-5.1) mmol/L Chloride 99 (98-107) mmol/L Carbon Dioxide 31 H (22-30) mmol/L Anion Gap 9.7 (5-15) MEQ/L BUN 15 (7-17) mg/dL Creatinine 0.67 (0.52-1.04) mg/dL Estimated GFR 92.8 ML/MIN Glucose 182 H (74-106) mg/dL Calcium 8.7 (8.4-10.2) mg/dL Total Bilirubin 0.20 (0.2-1.3) mg/dL AST 25 (14-36) U/L ALT 18 (0-35) U/L Alkaline Phosphatase 125 (38-126) U/L NT-Pro-B Natriuret Pep (<300) pg/mL Serum Total Protein 7.0 (6.3-8.2) g/dL Albumin 3.8 (3.5-5.0) g/dL Slides for Path Review Radiology Exams: Radiology Procedures Category Date Time Status CHEST 1 VIEW (PORTABLE) Stat Exams 12/29/24 15:34 Completed CHEST WITH CONTRAST [CT] Stat Exams 12/30/24 08:05 Completed ECHO W/2D AND DOPPLER [US] Urgent Exams 12/30/24 09:22 Taken Medications: Medications Generic Name Dose Route Start Last Admin Trade Name Freq PRN Reason Stop Dose Admin Acetaminophen 325 mg 12/29/24 20:38 12/29/24 21:59 Acetaminophen 325 Mg Tablet PO 01/28/25 20:37 325 mg Q4H PRN PRN Administration PAIN, FEVER, HEADACHE Albuterol Sulfate 4 puff 12/29/24 19:01 Albuterol Common Canister Inhaler 01/28/25 19:00 Q4H PRN PRN SHORTNESS OF BREATH/WHEEZING Albuterol Sulfate 2.5 mg 12/30/24 10:51 12/30/24 11:12 Albuterol Sulfate 2.5 Mg/3 Ml Neb IH 01/29/25 10:50 2.5 mg Q4H PRN PRN Administration SHORTNESS OF BREATH/WHEEZING Albuterol/Ipratropium 3 ml 12/29/24 19:00 12/31/24 06:45 Ipratropium/Albuterol Sulfate 3 Ml Ampul.Neb IH 01/28/25 18:59 3 ml Q6HRT LORRIE Administration Amlodipine Besylate 5 mg 12/30/24 10:00 12/30/24 09:13 Amlodipine Besylate 5 Mg Tablet PO 01/29/25 09:59 5 mg DAILY LORRIE Administration Aspirin 81 mg 12/30/24 10:00 12/30/24 09:13 Aspirin 81 Mg Tablet.Ec PO 01/29/25 09:59 81 mg DAILY LORRIE Administration Calcium Carbonate 1 tab 12/30/24 10:00 12/30/24 09:13 Calcium Carbonate 500 Mg/Vitamin D 1 Tab Tablet PO 01/29/25 09:59 1 tab DAILY LORRIE Administration Methylprednisolone Sodium 0 mg 12/30/24 22:00 12/30/24 21:32 Succinate 40 mg/ Sterile Water IV 01/29/25 21:59 40 mg 1 ml Q12HT LORRIE Administration Famotidine 20 mg 12/30/24 10:00 12/30/24 09:12 Famotidine 20 Mg Tablet PO 01/29/25 09:59 20 mg DAILY LORRIE Administration Heparin Sodium (Beef Lung) 5,000 unit 12/29/24 22:00 12/30/24 21:32 Heparin 5000 Units/0.5 Ml 5,000 Unit/0.5 Ml Syr SQ 01/28/25 21:59 5,000 unit BID LORRIE Administration Azithromycin 500 mg/ Sodium 250 mls @ 250 mls/hr 12/30/24 10:00 12/30/24 09:14 Chloride IV 01/29/25 09:59 250 mls/hr Q24H10 LORRIE Administration Ceftriaxone Sodium 1 gm in 100 mls @ 200 mls/hr 12/30/24 10:00 12/30/24 10:48 Rocephin 1 Gm / 100 Ml Nacl IV 01/29/25 09:59 200 mls/hr Q24H10 LORRIE Administration Magnesium Oxide 400 mg 12/29/24 22:00 12/30/24 21:31 Magnesium Oxide 400 Mg Tablet PO 01/28/25 21:59 400 mg BID LORRIE Administration Metoprolol Tartrate 50 mg 12/29/24 22:00 12/30/24 21:31 Metoprolol Tartrate 50 Mg Tablet PO 01/28/25 21:59 50 mg BID LORRIE Administration Nicotine 14 mg 12/29/24 20:45 12/30/24 21:32 Nicotine 14 Mg/Patch Patch TOP 01/28/25 20:44 14 mg Q24H LORRIE Administration Simvastatin 10 mg 12/29/24 22:00 12/30/24 21:31 Simvastatin 10 Mg Tablet PO 01/28/25 21:59 10 mg HS LORRIE Administration Discontinued Medications Generic Name Dose Route Start Last Admin Trade Name Josie PRN Reason Stop Dose Admin Albuterol/Ipratropium Confirm 12/29/24 15:32 Ipratropium/Albuterol Sulfate 3 Ml Ampul.Neb Administered 12/29/24 15:33 Dose 3 ml IH .STK-MED ONE Albuterol/Ipratropium 3 ml 12/29/24 15:43 12/29/24 15:40 Ipratropium/Albuterol Sulfate 3 Ml Ampul.Neb IH 12/29/24 15:44 3 ml STAT ONE Administration Azithromycin Confirm 12/30/24 09:09 Azithromycin Inj Administered 12/30/24 09:10 Dose 500 mg IV .STK-MED ONE Methylprednisolone Sodium 0 mg 12/29/24 16:49 12/29/24 17:06 Succinate 125 mg/ Sterile IV 12/29/24 16:50 125 mg Water 2 ml STAT ONE Administration Diphenhydramine HCl 25 mg 12/29/24 21:55 12/29/24 21:59 Diphenhydramine Hcl 25 Mg Capsule PO 12/29/24 21:56 25 mg ONCE ONE Administration Sodium Chloride 1,000 mls @ 50 mls/hr 12/29/24 21:00 12/29/24 21:38 Sodium Chloride 0.9% 1000 Ml IV 01/28/25 20:59 50 mls/hr .Q20H LORRIE Administration Sodium Chloride Confirm 12/30/24 09:09 Sodium Chloride 0.9% 250 Ml Administered 12/30/24 09:10 Dose 250 mls @ ud IV .STK-MED ONE Methylprednisolone Sodium Succinate Confirm 12/29/24 17:02 Methylprednis Sod Succ 125 Mg/2 Ml Vial Administered 12/29/24 17:03 Dose 125 mg .ROUTE .STK-MED ONE Methylprednisolone Sodium Succinate Confirm 12/30/24 21:29 Methylprednisolone Sod Suc 40m 40 Mg/Ml Vial Administered 12/30/24 21:30 Dose 40 mg .ROUTE .STK-MED ONE Non-Formulary Medication 10 mg 12/29/24 22:00 Atorvastatin Calcium PO 01/28/25 21:59 HS LORRIE Prednisone 40 mg 12/30/24 10:00 12/30/24 09:12 Prednisone 20 Mg Tablet PO 01/29/25 09:59 40 mg DAILY LORRIE Administration Sterile Water Confirm 12/29/24 17:02 Water For Injection,Sterile 10 Ml Vial Administered 12/29/24 17:03 Dose 10 ml IJ .STK-MED ONE Sterile Water Confirm 12/30/24 21:29 Water For Injection,Sterile 10 Ml Vial Administered 12/30/24 21:30 Dose 10 ml IJ .STK-MED ONE Assessment/Plan (1) Acute respiratory failure with hypoxia Current Visit: No Status: Acute Assessment & Plan: -Secondary to COPD exacerbation -CXR without infiltrate; mild leukocytosis; clinical bronchospasm and hypoxia. -Continue systemic steroids (methylprednisolone - transitioned to prednisone 40mg daily). -Scheduled DuoNebs; PRN albuterol. -Azithromycin added -Oxygen to target SpO2 89-92%; wean as tolerated 2L prn at baseline currently at 3L -ABG prn if increasing work of breathing; lethary, confusion -Flutter, IS -D-dimer elevated at 2.01 -CTA chest ordered and pending 12/31: - CTA chest was performed, showing no pulmonary embolism but revealing patchy interstitial and alveolar opacities in the left upper lobe and lingula with a small pleural effusion, consistent with pneumonia or pneumonitis. Additionally, there was a subpleural triangular opacity in the left lower lobe favored to represent subsegmental atelectasis, though malignancy could not be fully excluded. -Outpatient pulmonology follow-up and repeat imaging were recommended for reassessment of LLL -WBC reviewed with slight elevation with solumedrol on board at 11.3 -Continue ceftriaxone/azithromycin -Continue solumedrol -Supplemental oxygen with goal spo2 > 90%- currently at 3L -Flutter/IS -Nebs/INH Code(s): J96.01 - ACUTE RESPIRATORY FAILURE WITH HYPOXIA (2) COPD exacerbation Current Visit: Yes Status: Acute Assessment & Plan: -see ARF above Code(s): J44.1 - CHRONIC OBSTRUCTIVE PULMONARY DISEASE W (ACUTE) EXACERBATION (3) Hypomagnesemia Current Visit: Yes Status: Acute Assessment & Plan: -Oral mag oxide started- continue -Repeat mag at 1.6 Code(s): E83.42 - HYPOMAGNESEMIA (4) Hyponatremia Current Visit: Yes Status: Acute Assessment & Plan: -Likely hypovolemic vs diuretic effect; monitor sodium daily -Sodium now improved to 130 -Continue gentle hydration IVF 12/31: -Sodium level at 135 -discontinue IVF Code(s): E87.1 - HYPO-OSMOLALITY AND HYPONATREMIA (5) Leukocytosis Current Visit: Yes Status: Acute Qualifiers: Leukocytosis type: unspecified Qualified Code(s): D72.829 - Elevated white blood cell count, unspecified Assessment & Plan: -Mild; likely secondary to pneumonia- now wnl at 11.3 (with steroids) -Trend CBC -UA pending Code(s): D72.829 - ELEVATED WHITE BLOOD CELL COUNT, UNSPECIFIED (6) HLD (hyperlipidemia) Current Visit: No Status: Chronic Qualifiers: Hyperlipidemia type: unspecified Qualified Code(s): E78.5 - Hyperlipidemia, unspecified Assessment & Plan: -continue statin Code(s): E78.5 - HYPERLIPIDEMIA, UNSPECIFIED (7) HTN (hypertension) Current Visit: No Status: Chronic Qualifiers: Hypertension type: primary hypertension Qualified Code(s): I10 - Essential (primary) hypertension Assessment & Plan: -continue amlodipine VTE: Heparin PPI: Protonix Dispo: 1-2 days Plan of care time spent 40 mins Code(s): J96.01 - ACUTE RESPIRATORY FAILURE WITH HYPOXIA (2) Pneumonia Current Visit: Yes Status: Acute Code(s): J18.9 - PNEUMONIA, UNSPECIFIED ORGANISM (3) COPD exacerbation Current Visit: Yes Status: Acute Code(s): J44.1 - CHRONIC OBSTRUCTIVE PULMONARY DISEASE W (ACUTE) EXACERBATION (4) Hypomagnesemia Current Visit: Yes Status: Acute Code(s): E83.42 - HYPOMAGNESEMIA (5) Hyponatremia Current Visit: Yes Status: Acute Code(s): E87.1 - HYPO-OSMOLALITY AND HYPONATREMIA (6) Leukocytosis Current Visit: Yes Status: Acute Qualifiers: Leukocytosis type: unspecified Qualified Code(s): D72.829 - Elevated white blood cell count, unspecified Code(s): D72.829 - ELEVATED WHITE BLOOD CELL COUNT, UNSPECIFIED (7) HLD (hyperlipidemia) Current Visit: No Status: Chronic Qualifiers: Hyperlipidemia type: unspecified Qualified Code(s): E78.5 - Hyperlipidemia, unspecified Code(s): E78.5 - HYPERLIPIDEMIA, UNSPECIFIED (8) HTN (hypertension) Current Visit: No Status: Chronic Qualifiers: Hypertension type: primary hypertension Qualified Code(s): I10 - Essential (primary) hypertension Code(s): I10 - ESSENTIAL (PRIMARY) HYPERTENSION (9) Abnormal finding on imaging Current Visit: Yes Status: Acute Code(s): R93.89 - ABNORMAL FINDINGS ON DX IMAGING OF OTH BODY STRUCTURES
[2024-12-31] MEDS ORDERED: Sterile H2O 10 ml IJ ONE ×2 (09:01→20:44)
[2024-12-31] MEDS ORDERED: ZITHROMAX IV IV ONE (09:03)
[2024-12-31] MEDS: ZOFRAN ODT 4 MG PO PRN (12:57)
[2024-12-31] MEDS: Robitussin-Dm Syrup PO PRN (14:34)
[2025-01-01 04:50] LABS: BASOPHIL % 0.1 % (0.1-1.2); Basophil (Absolute #) 0.01 x10^3/uL (0.01-0.08); Eosinophil (Absolute #) 0 x10^3/uL (0.04-0.36); Hematocrit 36.7 % (34.1-44.9); Hemoglobin 11.3 g/dL (11.2-15.7); IMMATURE GRAN # 0.11 x10^3u/L (0.001-0.031); IMMATURE GRAN % 1.0 % (0.001-0.429); Lymphocyte (Absolute #) 0.46 x10^3/uL (1.18-3.74); Mean Corpuscular Hemoglobin 30.7 pg (25.6-32.2); Mean Corpuscular Hgb Concent. 30.8 g/dL (32.2-35.5); Monocyte (Absolute #) 0.53 x10^3/uL (0.24-0.86); NUCLEATED RBC # 0.00 x10^3u/L (0.00-0.012); NUCLEATED RBC % 0.0 % (0.00-0.2); Platelet Count 384 x10^3/uL (182-369); Red Blood Count 3.68 x10^6/uL (3.93-5.22); White Blood Count 10.9 x10^3/uL (3.98-10.04)
--- NOTE | 2025-01-01 05:11 | PCM.NOTE ---
Date and Time: 01/01/25 0510 Subjective Assessment: is a 74-year-old female with a pmhx of COPD, hypertension, hyperlipidemia, and arrhythmia, presented with two days of worsening dyspnea and productive cough unrelieved by home nebulizer therapy. She denied fever or exertional chest pain but reported pleuritic chest discomfort with coughing. On arrival, she was tachypneic and hypoxic at 86% on room air, improving to 94% on 2 L nasal cannula. Chest X-ray showed hyperinflation and chronic parenchymal changes without infiltrate or effusion. Initial labs demonstrated mild leukocytosis (WBC 11.5), hyponatremia (Na 129), hypomagnesemia (Mg 1.5), and isolated alkaline phosphatase elevation (146 U/L) with normal transaminases. She received IV methylprednisolone and nebulized bronchodilators with partial relief and was admitted for further management of acute COPD exacerbation with hypoxemia. On 12/30, she remained dyspneic, now requiring 3 L/min oxygen (baseline 2 L PRN). Sputum was thick and green. Physical exam noted mild bilateral lower extremity edema, which was chronic per patient.Given an elevated D-dimer (2.01), a CTA chest was performed, showing no pulmonary embolism but revealing patchy interstitial and alveolar opacities in the left upper lobe and lingula with a small pleural effusion, consistent with pneumonia or pneumonitis. Additionally, there was a subpleural triangular opacity in the left lower lobe favored to represent subsegmental atelectasis, though malignancy could not be fully excluded. Outpatient pulmonology follow-up and repeat imaging were recommended for reassessment. She is continued on scheduled DuoNebs and PRN albuterol, solumedrol and treated with ceftriaxone and azithromycin for community-acquired pneumonia coverage. Her electrolytes improved (Na 130, Mg 1.6). 12/31/24: Met with patient bedside. Continues to require 3L of oxygen with complaints of dyspnea and cough. Lung sounds diminished with exp wheezing. Discussed CT scan which was negative for PE but showed patchy interstitial and alveolar opacities in the left upper lobe and lingula with a small pleural effusion, consistent with pneumonia or pneumonitis. Additionally, there was a subpleural triangular opacity in the left lower lobe favored to represent subsegmental atelectasis, though malignancy could not be fully excluded. Outpatient pulmonology follow-up and repeat imaging were recommended for reassessment. Patient is anxious for discharge today but has now agreed to stay. Will continue iv steroids and abx. 01/01: Met with patient bedside. She reports worsening shortness of breath compared to yesterday, stating that her breathing feels heavier and more effortful despite ongoing treatments. She notes her oxygen requirement has increased from 3 L/min to 6 L/min since earlier this morning, which she finds concerning and frustrating as she had been hoping for improvement. She continues to experience a frequent, productive cough, describing her sputum as thick and difficult to clear. She also reports new right upper extremity swelling that developed this morning which is painful, prompting concern for possible clot or vascular issue. She denies fever, chills, chest pain, or hemoptysis, but does feel more fatigued from the increased work of breathing. She is aware that her prior CTA was negative for PE but showed persistent left-sided interstitial and alveolar opacities with a small effusion and a left lower lobe opacity requiring follow- up. She agrees to the plan for repeat CT imaging today and evaluation of the RUE with venous Doppler. - Review of Systems Constitutional: No Symptoms Eyes: No Symptoms Ears, Nose, & Throat: No Symptoms Respiratory: Cough, Short Of Breath, Wheezing Cardiac: Edema (RUE) Abdominal/Gastrointestinal: No Symptoms Genitourinary Symptoms: No Symptoms Musculoskeletal: No Symptoms Skin: No Symptoms Neurological: No Symptoms Psychological: No Symptoms Endocrine: No Symptoms Hematologic/Lymphatic: No Symptoms Immunological/Allergic: No Symptoms Objective Exam General Appearance: no apparent distress Neurologic Exam: alert, oriented x 3, cooperative Skin Exam: normal color Eye Exam: PERRL Ears, Nose, Throat Exam: normal ENT inspection Neck Exam: normal inspection Respiratory Exam: diminished breath sounds, crackles/rales, wheezing Cardiovascular Exam: regular rate/rhythm, normal heart sounds Gastrointestinal/Abdomen Exam: soft, normal bowel sounds Extremity Exam: normal inspection Back Exam: normal inspection Pelvic Exam: deferred Rectal Exam: deferred Objective Data Vital Signs: Vital Signs - 24 hr Temp Pulse Resp BP Pulse Ox 01/01/25 04:00 97.9 F 97 H 12 131/63 93 L 01/01/25 00:11 72 20 90 L 01/01/25 00:00 97.8 F 81 18 144/64 92 L 12/31/24 20:00 97.9 F 101 H 25 H 125/57 94 L 12/31/24 19:15 82 20 94 L 12/31/24 15:33 97.9 F 83 16 125/57 95 12/31/24 12:52 80 20 93 L 12/31/24 11:19 97.9 F 77 16 136/66 95 12/31/24 07:20 97.8 F 86 16 130/59 90 L 12/31/24 06:49 85 18 90 L Pain Assessment - Last Documented Pain Intensity 0 Pain Scale Used 0-10 Pain Scale Intake and Output: Intake & Output 12/29/24 12/30/24 12/31/24 01/01/25 11:59 11:59 11:59 11:59 Intake Total 1684 1140 794 Balance 1684 1140 794 Weight 59.8 kg Lab Results: Lab Results-Last 24 Hours 12/31/24 01/01/25 Range/Units 04:15 04:10 WBC 10.9 H (3.98-10.04) x10^3/uL RBC 3.68 L (3.93-5.22) x10^6/uL Hgb 11.3 (11.2-15.7) g/dL Hct 36.7 (34.1-44.9) % MCV 99.7 H (79.4-94.8) fL MCH 30.7 (25.6-32.2) pg MCHC 30.8 L (32.2-35.5) g/dL RDW 14.5 H (11.7-14.4) % Plt Count 384 H (182-369) x10^3/uL MPV 9.0 L (9.4-12.3) fL Gran % 89.8 H (34.0-71.1) % Immature Gran % (Auto) 1.0 H (0.001-0.429) % Nucleat RBC Rel Count 0.0 (0.00-0.2) % Eos # (Auto) 0 L (0.04-0.36) x10^3/uL Immature Gran # (Auto) 0.11 H (0.001-0.031) x10^3u/L Absolute Lymphs (auto) 0.46 L (1.18-3.74) x10^3/uL Absolute Monos (auto) 0.53 (0.24-0.86) x10^3/uL Absolute Nucleated RBC 0.00 (0.00-0.012) x10^3u/L Lymphocytes % 4.2 L (19.3-51.7) % Monocytes % 4.9 (4.7-12.5) % Eosinophils % 0.0 L (0.7-5.8) % Basophils % 0.1 (0.1-1.2) % Absolute Granulocytes 9.81 H (1.56-6.13) x10^3/uL Basophils # 0.01 (0.01-0.08) x10^3/uL Slides for Path Review YES Radiology Exams: Radiology Procedures Category Date Time Status CHEST WITH CONTRAST [CT] Stat Exams 12/30/24 08:05 Completed ECHO W/2D AND DOPPLER [US] Urgent Exams 12/30/24 09:22 Taken Medications: Medications Generic Name Dose Route Start Last Admin Trade Name Freq PRN Reason Stop Dose Admin Acetaminophen 325 mg 12/29/24 20:38 12/29/24 21:59 Acetaminophen 325 Mg Tablet PO 01/28/25 20:37 325 mg Q4H PRN PRN Administration PAIN, FEVER, HEADACHE Albuterol Sulfate 4 puff 12/29/24 19:01 Albuterol Common Canister Inhaler 01/28/25 19:00 Q4H PRN PRN SHORTNESS OF BREATH/WHEEZING Albuterol Sulfate 2.5 mg 12/30/24 10:51 12/30/24 11:12 Albuterol Sulfate 2.5 Mg/3 Ml Neb 01/29/25 10:50 2.5 mg Q4H PRN PRN Administration SHORTNESS OF BREATH/WHEEZING Albuterol/Ipratropium 3 ml 12/29/24 19:00 01/01/25 00:09 Ipratropium/Albuterol Sulfate 3 Ml Ampul.Neb 01/28/25 18:59 3 ml Q6HRT LORRIE Administration Amlodipine Besylate 5 mg 12/30/24 10:00 12/31/24 09:16 Amlodipine Besylate 5 Mg Tablet PO 01/29/25 09:59 5 mg DAILY LORRIE Administration Aspirin 81 mg 12/30/24 10:00 12/31/24 09:16 Aspirin 81 Mg Tablet.Ec PO 01/29/25 09:59 81 mg DAILY LORRIE Administration Calcium Carbonate 1 tab 12/30/24 10:00 12/31/24 09:16 Calcium Carbonate 500 Mg/Vitamin D 1 Tab Tablet PO 01/29/25 09:59 1 tab DAILY LORRIE Administration Methylprednisolone Sodium 0 mg 12/30/24 22:00 12/31/24 20:48 Succinate 40 mg/ Sterile Water IV 01/29/25 21:59 40 mg 1 ml Q12HT LORRIE Administration Famotidine 20 mg 12/30/24 10:00 12/31/24 09:16 Famotidine 20 Mg Tablet PO 01/29/25 09:59 20 mg DAILY LORRIE Administration Guaifenesin/Dextromethorphan 10 ml 12/31/24 14:29 01/01/25 04:45 Guaifenesin/D-Methorphan Hb 118 Ml Syrup PO 01/30/25 14:28 10 ml Q4H PRN PRN Administration COUGH Heparin Sodium (Beef Lung) 5,000 unit 12/29/24 22:00 12/31/24 20:47 Heparin 5000 Units/0.5 Ml 5,000 Unit/0.5 Ml Syr SQ 01/28/25 21:59 5,000 unit BID LORRIE Administration Azithromycin 500 mg/ Sodium 250 mls @ 250 mls/hr 12/30/24 10:00 12/31/24 09:16 Chloride IV 01/29/25 09:59 250 mls/hr Q24H10 LORRIE Administration Ceftriaxone Sodium 1 gm in 100 mls @ 200 mls/hr 12/30/24 10:00 12/31/24 09:17 Rocephin 1 Gm / 100 Ml Nacl IV 01/29/25 09:59 200 mls/hr Q24H10 LORRIE Administration Magnesium Oxide 400 mg 12/29/24 22:00 12/31/24 20:48 Magnesium Oxide 400 Mg Tablet PO 01/28/25 21:59 400 mg BID LORRIE Administration Metoprolol Tartrate 50 mg 12/29/24 22:00 12/31/24 20:48 Metoprolol Tartrate 50 Mg Tablet PO 01/28/25 21:59 50 mg BID LORRIE Administration Nicotine 14 mg 12/29/24 20:45 12/31/24 20:48 Nicotine 14 Mg/Patch Patch TOP 01/28/25 20:44 14 mg Q24H LORRIE Administration Ondansetron HCl 4 mg 12/31/24 12:50 12/31/24 12:57 Zofran 4 Mg/Udtablet Orally Disintegrating PO 01/30/25 12:49 4 mg Q6H PRN PRN Administration NAUSEA/VOMITING Simvastatin 10 mg 12/29/24 22:00 12/31/24 20:48 Simvastatin 10 Mg Tablet PO 01/28/25 21:59 10 mg HS LORRIE Administration Discontinued Medications Generic Name Dose Route Start Last Admin Trade Name Freq PRN Reason Stop Dose Admin Albuterol/Ipratropium Confirm 12/29/24 15:32 Ipratropium/Albuterol Sulfate 3 Ml Ampul.Neb Administered 12/29/24 15:33 Dose 3 ml IH .STK-MED ONE Albuterol/Ipratropium 3 ml 12/29/24 15:43 12/29/24 15:40 Ipratropium/Albuterol Sulfate 3 Ml Ampul.Neb IH 12/29/24 15:44 3 ml STAT ONE Administration Azithromycin Confirm 12/30/24 09:09 Azithromycin Inj Administered 12/30/24 09:10 Dose 500 mg IV .STK-MED ONE Azithromycin Confirm 12/31/24 09:03 Azithromycin Inj Administered 12/31/24 09:04 Dose 500 mg IV .STK-MED ONE Methylprednisolone Sodium 0 mg 12/29/24 16:49 12/29/24 17:06 Succinate 125 mg/ Sterile IV 12/29/24 16:50 125 mg Water 2 ml STAT ONE Administration Diphenhydramine HCl 25 mg 12/29/24 21:55 12/29/24 21:59 Diphenhydramine Hcl 25 Mg Capsule PO 12/29/24 21:56 25 mg ONCE ONE Administration Sodium Chloride 1,000 mls @ 50 mls/hr 12/29/24 21:00 12/29/24 21:38 Sodium Chloride 0.9% 1000 Ml IV 01/28/25 20:59 50 mls/hr .Q20H LORRIE Administration Sodium Chloride Confirm 12/30/24 09:09 Sodium Chloride 0.9% 250 Ml Administered 12/30/24 09:10 Dose 250 mls @ ud IV .STK-MED ONE Sodium Chloride Confirm 12/31/24 09:03 Sodium Chloride 0.9% 250 Ml Administered 12/31/24 09:04 Dose 250 mls @ ud IV .STK-MED ONE Methylprednisolone Sodium Succinate Confirm 12/29/24 17:02 Methylprednis Sod Succ 125 Mg/2 Ml Vial Administered 12/29/24 17:03 Dose 125 mg .ROUTE .STK-MED ONE Methylprednisolone Sodium Succinate Confirm 12/30/24 21:29 Methylprednisolone Sod Suc 40m 40 Mg/Ml Vial Administered 12/30/24 21:30 Dose 40 mg .ROUTE .STK-MED ONE Methylprednisolone Sodium Succinate Confirm 12/31/24 09:01 Methylprednisolone Sod Suc 40m 40 Mg/Ml Vial Administered 12/31/24 09:02 Dose 40 mg .ROUTE .STK-MED ONE Methylprednisolone Sodium Succinate Confirm 12/31/24 20:44 Methylprednisolone Sod Suc 40m 40 Mg/Ml Vial Administered 12/31/24 20:45 Dose 40 mg .ROUTE .STK-MED ONE Non-Formulary Medication 10 mg 12/29/24 22:00 Atorvastatin Calcium PO 01/28/25 21:59 HS LORRIE Prednisone 40 mg 12/30/24 10:00 12/30/24 09:12 Prednisone 20 Mg Tablet PO 01/29/25 09:59 40 mg DAILY LORRIE Administration Sterile Water Confirm 12/29/24 17:02 Water For Injection,Sterile 10 Ml Vial Administered 12/29/24 17:03 Dose 10 ml IJ .STK-MED ONE Sterile Water Confirm 12/30/24 21:29 Water For Injection,Sterile 10 Ml Vial Administered 12/30/24 21:30 Dose 10 ml IJ .STK-MED ONE Sterile Water Confirm 12/31/24 09:01 Water For Injection,Sterile 10 Ml Vial Administered 12/31/24 09:02 Dose 10 ml IJ .STK-MED ONE Sterile Water Confirm 12/31/24 20:44 Water For Injection,Sterile 10 Ml Vial Administered 12/31/24 20:45 Dose 10 ml IJ .STK-MED ONE Multi-Disciplinary Progress Notes: Multi-Disciplinary Progress Notes 12/31/24 10:03 Case Management Note by Eula Lopez S/W PATIENT. SHE CONTINUES TO DENY ANY NEW NEEDS AT TIME OF DC. PLANS TO RETURN TO HER PLOF TO HER HOME. REFUSES ANY ADDITIONAL RESOURCES. STATES SHE ALREADY HAS O2 THROUGH [facility] AT 2L NC CONTINUOUS. Initialized on 12/31/24 10:03 - END OF NOTE Assessment/Plan (1) Acute respiratory failure with hypoxia Current Visit: No Status: Acute Assessment & Plan: -Secondary to COPD exacerbation -CXR without infiltrate; mild leukocytosis; clinical bronchospasm and hypoxia. -Continue systemic steroids (methylprednisolone - transitioned to prednisone 40mg daily). -Scheduled DuoNebs; PRN albuterol. -Azithromycin added -Oxygen to target SpO2 89-92%; wean as tolerated 2L prn at baseline currently at 3L -ABG prn if increasing work of breathing; lethary, confusion -Flutter, IS -D-dimer elevated at 2.01 -CTA chest ordered and pending 12/31: - CTA chest was performed, showing no pulmonary embolism but revealing patchy interstitial and alveolar opacities in the left upper lobe and lingula with a small pleural effusion, consistent with pneumonia or pneumonitis. Additionally, there was a subpleural triangular opacity in the left lower lobe favored to represent subsegmental atelectasis, though malignancy could not be fully excluded. -Outpatient pulmonology follow-up and repeat imaging were recommended for reassessment of LLL -WBC reviewed with slight elevation with solumedrol on board at 11.3 -Continue ceftriaxone/azithromycin -Continue solumedrol -Supplemental oxygen with goal spo2 > 90%- currently at 3L -Flutter/IS -Nebs/INH 01/01: -Patient with acute dyspnea this morning and a significant increase in oxygen requirements from 3 L to 6 L/min, indicating clinical worsening. -Repeat CT chest ordered today to reassess progression of pulmonary findings given deterioration in respiratory status. -Continue IV methylprednisolone -Continue scheduled DuoNebs q46h and PRN albuterol for symptomatic relief. -Supplemental oxygen targeting SpO2 8892%; monitor closely for further escalation of P3qudgm. -Evaluate for need of NIV/BiPAP if increased work of breathing, hypercapnia, or worsening hypoxemia develops. -Continue incentive spirometry, flutter valve -Qualifies for home oxygen; anticipate discharge planning to include home O2 set-up once stable - patient states she will not use oxygen at all times due to work- discussed risks - patient reports she will try portable Code(s): J96.01 - ACUTE RESPIRATORY FAILURE WITH HYPOXIA Community-Acquired Pneumonia / Pneumonitis -(MARYANNE/[place] Opacities on CT) -Continue ceftriaxone + azithromycin -Repeat CT chest today to evaluate interval change in MARYANNE/lingular opacities and small pleural effusion given clinical worsening. -WBC wnl -Supplemental oxygen with goal spo2 >89%- currently on 6L -Discussed imaging with Dr. Melendrez - Plan outpatient pulmonology follow-up and repeat interval imaging after discharge. Left Lower Lobe Subpleural Opacity (Atelectasis vs Less Likely Malignancy) -Repeat CT chest today due to increased dyspnea and oxygen requirements -Dr. Melendrez has reviewed imaging and recommends outpatient pulmonology evaluation for surveillance Right Upper Extremity Edema -Order venous Doppler of RUE to evaluate for thrombosis. -Assess for other causes such as IV infiltration, cellulitis, or catheter- related complications. -If DVT confirmed, initiate anticoagulation (2) COPD exacerbation Current Visit: Yes Status: Acute Assessment & Plan: -see ARF above Code(s): J44.1 - CHRONIC OBSTRUCTIVE PULMONARY DISEASE W (ACUTE) EXACERBATION (3) Hypomagnesemia Current Visit: Yes Status: Acute Assessment & Plan: -Oral mag oxide started- continue -Repeat mag at 1.6 Code(s): E83.42 - HYPOMAGNESEMIA (4) Hyponatremia Current Visit: Yes Status: Acute Assessment & Plan: -Likely hypovolemic vs diuretic effect; monitor sodium daily -Sodium now improved to 130 -Continue gentle hydration IVF 12/31: -Sodium level at 135 -discontinue IVF 01/01: -resolved- sodium at 138 Code(s): E87.1 - HYPO-OSMOLALITY AND HYPONATREMIA (5) Leukocytosis Current Visit: Yes Status: Acute Qualifiers: Leukocytosis type: unspecified Qualified Code(s): D72.829 - Elevated white blood cell count, unspecified Assessment & Plan: -Mild; likely secondary to pneumonia- now wnl at 11.3 (with steroids) -Trend CBC -UA pending 01/01: -WBC reviewed at 10.9 Code(s): D72.829 - ELEVATED WHITE BLOOD CELL COUNT, UNSPECIFIED (6) HLD (hyperlipidemia) Current Visit: No Status: Chronic Qualifiers: Hyperlipidemia type: unspecified Qualified Code(s): E78.5 - Hyperlipidemia, unspecified Assessment & Plan: -continue statin Code(s): E78.5 - HYPERLIPIDEMIA, UNSPECIFIED (7) HTN (hypertension) Current Visit: No Status: Chronic Qualifiers: Hypertension type: primary hypertension Qualified Code(s): I10 - Essential (primary) hypertension Assessment & Plan: -continue amlodipine VTE: Heparin PPI: Protonix Dispo: 1-2 days Plan of care time spent 40 mins Code(s): J96.01 - ACUTE RESPIRATORY FAILURE WITH HYPOXIA (2) Pneumonia Current Visit: Yes Status: Acute Code(s): J18.9 - PNEUMONIA, UNSPECIFIED ORGANISM (3) COPD exacerbation Current Visit: Yes Status: Acute Code(s): J44.1 - CHRONIC OBSTRUCTIVE PULMONARY DISEASE W (ACUTE) EXACERBATION (4) Hypomagnesemia Current Visit: Yes Status: Acute Code(s): E83.42 - HYPOMAGNESEMIA (5) Hyponatremia Current Visit: Yes Status: Acute Code(s): E87.1 - HYPO-OSMOLALITY AND HYPONATREMIA (6) Leukocytosis Current Visit: Yes Status: Acute Qualifiers: Leukocytosis type: unspecified Qualified Code(s): D72.829 - Elevated white blood cell count, unspecified Code(s): D72.829 - ELEVATED WHITE BLOOD CELL COUNT, UNSPECIFIED (7) HLD (hyperlipidemia) Current Visit: No Status: Chronic Qualifiers: Hyperlipidemia type: unspecified Qualified Code(s): E78.5 - Hyperlipidemia, unspecified Code(s): E78.5 - HYPERLIPIDEMIA, UNSPECIFIED (8) HTN (hypertension) Current Visit: No Status: Chronic Qualifiers: Hypertension type: primary hypertension Qualified Code(s): I10 - Essential (primary) hypertension Code(s): I10 - ESSENTIAL (PRIMARY) HYPERTENSION (9) Abnormal finding on imaging Current Visit: Yes Status: Acute Code(s): R93.89 - ABNORMAL FINDINGS ON DX IMAGING OF OTH BODY STRUCTURES (10) Pneumonia Current Visit: Yes Status: Acute Code(s): J18.9 - PNEUMONIA, UNSPECIFIED ORGANISM
[2025-01-01 05:15] LABS: Calcium 9.0 mg/dL (8.4-10.2); Carbon Dioxide 34.0 mmol/L (22-30); Creatinine 1 0.66 mg/dL (0.52-1.04); EST GLOMERULAR FILTRATION RATE 93.1 ML/MIN; Glucose 187.0 mg/dL (74-106); Potassium 4.8 mmol/L (3.5-5.1); SGOT/AST 22.0 U/L (14-36); SGPT/ALT 19.0 U/L (0-35); Total Protein 6.9 g/dL (6.3-8.2)
[2025-01-01 07:34] LABS: Slide Review 1 YES
[2025-01-01] MEDS ORDERED: Sterile H2O 10 ml IJ ONE ×2 (09:08→21:07)
[2025-01-01] MEDS ORDERED: ZITHROMAX IV IV ONE (09:09)
[2025-01-01] MEDS ORDERED: PULMICORT 0.5 MG/2 ML RESPULES IH PRN (09:25)
--- NOTE | 2025-01-01 13:06 | XRAY ---
Indication: Dyspnea. Increased oxygen requirement. Multiple contiguous axial images obtained through the chest using 80 cc Isovue 370 contrast and PE protocol. Comparison: December 30, 2024. Again good opacification pulmonary arteries to include lobar and segmental branches. Again no pulmonary embolus. Heart is now borderline enlarged. Aorta again mildly arteriosclerotic without aneurysm/dissection. Stable tiny left hilar calcified nodes. No pathologic mediastinal/hilar lymphadenopathy. Stable small hiatal hernia. Lungs again demonstrates mild pulmonary emphysema. Increasing small left and new tiny right effusions with new bibasilar compressive atelectasis. Left lower lobe demonstrates new small patchy interstitial alveolar opacity. Again small left upper lobe calcified granuloma and inferior lingula subsegmental atelectasis/scarring. Previous lateral left lower lobe subpleural masslike opacity not seen, probably atelectasis in etiology. Bony thorax intact again with osteopenia and degenerative spondylosis. Limited upper abdomen demonstrates stable left renal cyst. Impression: 1. Continued negative pulmonary embolus compared to CT PE exam 2 days ago. 2. New borderline cardiomegaly with increasing small left/new tiny right effusions. Rule out developing cardiac decompensation/CHF versus fluid overload. 3. New small patchy left lower lobe interstitial alveolar opacity possibly pneumonia. 4. Again chronic findings including pulmonary emphysema, arteriosclerotic disease, hiatal hernia, chronic bony findings, left renal cyst, and old granulomatous disease.
[2025-01-01] MEDS: Lasix 40 MG/4 ML IV ONE (13:35)
--- NOTE | 2025-01-01 13:45 | XRAY ---
Indication: Upper extremity edema. Two-dimensional sonogram and color Doppler imaging major venous vessels right upper extremity performed. Comparison: None No thrombus seen in the visualized right internal jugular, subclavian, axillary, brachial, basilic, cephalic, radial, and ulnar veins. Veins demonstrate normal compressibility and normal venous waveforms. Impression: Right upper extremity negative for venous thrombosis.
[2025-01-01] MEDS: Protonix 40MG Tablet PO SCH (16:30)
[2025-01-01] MEDS: PULMICORT 0.5 MG/2 ML RESPULES IH SCH (17:49)
[2025-01-02 05:08] LABS: BASOPHIL % 0.1 % (0.1-1.2); Basophil (Absolute #) 0.01 x10^3/uL (0.01-0.08); Eosinophil (Absolute #) 0 x10^3/uL (0.04-0.36); Hematocrit 37.7 % (34.1-44.9); Hemoglobin 11.6 g/dL (11.2-15.7); IMMATURE GRAN # 0.18 x10^3u/L (0.001-0.031); IMMATURE GRAN % 1.9 % (0.001-0.429); Lymphocyte (Absolute #) 0.49 x10^3/uL (1.18-3.74); Mean Corpuscular Hemoglobin 31.2 pg (25.6-32.2); Mean Corpuscular Hgb Concent. 30.8 g/dL (32.2-35.5); Monocyte (Absolute #) 0.59 x10^3/uL (0.24-0.86); NUCLEATED RBC # 0.00 x10^3u/L (0.00-0.012); NUCLEATED RBC % 0.0 % (0.00-0.2); Platelet Count 394 x10^3/uL (182-369); Red Blood Count 3.72 x10^6/uL (3.93-5.22); White Blood Count 9.3 x10^3/uL (3.98-10.04)
[2025-01-02 05:52] LABS: Calcium 9.4 mg/dL (8.4-10.2); Carbon Dioxide 37.0 mmol/L (22-30); Creatinine 1 0.72 mg/dL (0.52-1.04); EST GLOMERULAR FILTRATION RATE 88.8 ML/MIN; Glucose 170.0 mg/dL (74-106); Potassium 4.7 mmol/L (3.5-5.1); SGOT/AST 34.0 U/L (14-36); SGPT/ALT 26.0 U/L (0-35); Total Protein 6.9 g/dL (6.3-8.2)
[2025-01-02 07:05] LABS: Slide Review 1 YES
[2025-01-02] MEDS: Lasix 40 MG/4 ML IV SCH (09:48)
[2025-01-02] MEDS ORDERED: LASIX 20 MG PO SCH (10:00)
--- NOTE | 2025-01-02 10:36 | PCM.NOTE ---
Date and Time: 01/02/25 1036 Subjective Assessment: is a 74-year-old female with a pmhx of COPD, hypertension, hyperlipidemia, and arrhythmia, presented with two days of worsening dyspnea and productive cough unrelieved by home nebulizer therapy. She denied fever or exertional chest pain but reported pleuritic chest discomfort with coughing. On arrival, she was tachypneic and hypoxic at 86% on room air, improving to 94% on 2 L nasal cannula. Chest X-ray showed hyperinflation and chronic parenchymal changes without infiltrate or effusion. Initial labs demonstrated mild leukocytosis (WBC 11.5), hyponatremia (Na 129), hypomagnesemia (Mg 1.5), and isolated alkaline phosphatase elevation (146 U/L) with normal transaminases. She received IV methylprednisolone and nebulized bronchodilators with partial relief and was admitted for further management of acute COPD exacerbation with hypoxemia. On 12/30, she remained dyspneic, now requiring 3 L/min oxygen (baseline 2 L PRN). Sputum was thick and green. Physical exam noted mild bilateral lower extremity edema, which was chronic per patient.Given an elevated D-dimer (2.01), a CTA chest was performed, showing no pulmonary embolism but revealing patchy interstitial and alveolar opacities in the left upper lobe and lingula with a small pleural effusion, consistent with pneumonia or pneumonitis. Additionally, there was a subpleural triangular opacity in the left lower lobe favored to represent subsegmental atelectasis, though malignancy could not be fully excluded. Outpatient pulmonology follow-up and repeat imaging were recommended for reassessment. She is continued on scheduled DuoNebs and PRN albuterol, solumedrol and treated with ceftriaxone and azithromycin for community-acquired pneumonia coverage. Her electrolytes improved (Na 130, Mg 1.6). 12/31/24: Met with patient bedside. Continues to require 3L of oxygen with complaints of dyspnea and cough. Lung sounds diminished with exp wheezing. Discussed CT scan which was negative for PE but showed patchy interstitial and alveolar opacities in the left upper lobe and lingula with a small pleural effusion, consistent with pneumonia or pneumonitis. Additionally, there was a subpleural triangular opacity in the left lower lobe favored to represent subsegmental atelectasis, though malignancy could not be fully excluded. Outpatient pulmonology follow-up and repeat imaging were recommended for reassessment. Patient is anxious for discharge today but has now agreed to stay. Will continue iv steroids and abx. 01/01: Met with patient bedside. She reports worsening shortness of breath compared to yesterday, stating that her breathing feels heavier and more effortful despite ongoing treatments. She notes her oxygen requirement has increased from 3 L/min to 6 L/min since earlier this morning, which she finds concerning and frustrating as she had been hoping for improvement. She continues to experience a frequent, productive cough, describing her sputum as thick and difficult to clear. She also reports new right upper extremity swelling that developed this morning which is painful, prompting concern for possible clot or vascular issue. She denies fever, chills, chest pain, or hemoptysis, but does feel more fatigued from the increased work of breathing. She is aware that her prior CTA was negative for PE but showed persistent left-sided interstitial and alveolar opacities with a small effusion and a left lower lobe opacity requiring follow- up. She agrees to the plan for repeat CT imaging today and evaluation of the RUE with venous Doppler. 01/02/25: Patient seen at bedside this morning. She endorses ongoing dyspnea with audible wheezing and coarse breath sounds, along with a productive cough yielding thick yellow sputum. She reports increased shortness of breath with minimal ambulation and is frequently using pursed-lip breathing to ease work of breathing. CT chest from 01/01, which showed a new left lower lobe pneumonia, small bilateral effusions, and no pulmonary embolism. She is aware that the venous Doppler of the right upper extremity performed 01/01 was negative for DVT. She continues to feel fatigued but denies chest pain, fever, chills, or hemoptysis. She remains on 3 nasal cannula. Will continue Solu-Medrol ceftriaxone, scheduled inhaled budesonide, and Mucinex added today. Labs reviewed with her, including stable WBC within normal limits and unremarkable chemistry panel. - Review of Systems Constitutional: Weakness Eyes: No Symptoms Ears, Nose, & Throat: No Symptoms Respiratory: Cough, Short Of Breath, Wheezing Cardiac: No Symptoms Abdominal/Gastrointestinal: No Symptoms Genitourinary Symptoms: No Symptoms Musculoskeletal: No Symptoms Skin: No Symptoms Neurological: No Symptoms Psychological: No Symptoms Endocrine: No Symptoms Hematologic/Lymphatic: No Symptoms Immunological/Allergic: No Symptoms Objective Exam General Appearance: no apparent distress Neurologic Exam: alert, oriented x 3, cooperative Skin Exam: normal color Eye Exam: PERRL Ears, Nose, Throat Exam: normal ENT inspection Neck Exam: normal inspection Respiratory Exam: diminished breath sounds, crackles/rales, wheezing Cardiovascular Exam: regular rate/rhythm, normal heart sounds Gastrointestinal/Abdomen Exam: soft, normal bowel sounds Extremity Exam: swelling (trace BLE edema) Back Exam: normal inspection Pelvic Exam: deferred Rectal Exam: deferred Objective Data Vital Signs: Vital Signs - 24 hr Temp Pulse Resp BP Pulse Ox 01/02/25 07:36 98.7 F 85 16 149/66 93 L 01/02/25 06:58 98 H 24 97 01/02/25 04:00 97.7 F 87 19 136/60 879 H 01/02/25 01:26 80 24 87 L 01/01/25 23:54 97.9 F 98 H 20 167/79 94 L 01/01/25 19:49 97.8 F 94 H 33 H 135/65 92 L 01/01/25 17:56 99 01/01/25 17:43 86 16 99 01/01/25 16:00 97.7 F 81 18 137/65 92 L 01/01/25 11:50 77 22 91 L 01/01/25 11:33 97.9 F 70 16 124/58 89 L Pain Assessment - Last Documented Pain Intensity 0 Pain Scale Used 0-10 Pain Scale Intake and Output: Intake & Output 12/30/24 12/31/24 01/01/25 01/02/25 11:59 11:59 11:59 11:59 Intake Total 1684 1140 1154 866 Output Total 4615 Balance 1684 1140 1154 -1659 Weight 59.8 kg 59.8 kg Lab Results: Lab Results-Last 24 Hours 01/01/25 01/02/25 01/02/25 Range/Units 04:10 04:35 04:35 WBC 9.3 (3.98-10.04) x10^3/uL RBC 3.72 L (3.93-5.22) x10^6/uL Hgb 11.6 (11.2-15.7) g/dL Hct 37.7 (34.1-44.9) % MCV 101.3 H (79.4-94.8) fL MCH 31.2 (25.6-32.2) pg MCHC 30.8 L (32.2-35.5) g/dL RDW 14.2 (11.7-14.4) % Plt Count 394 H (182-369) x10^3/uL MPV 8.8 L (9.4-12.3) fL Gran % 86.5 H (34.0-71.1) % Immature Gran % (Auto) 1.9 H (0.001-0.429) % Nucleat RBC Rel Count 0.0 (0.00-0.2) % Eos # (Auto) 0 L (0.04-0.36) x10^3/uL Immature Gran # (Auto) 0.18 H (0.001-0.031) x10^3u/L Absolute Lymphs (auto) 0.49 L (1.18-3.74) x10^3/uL Absolute Monos (auto) 0.59 (0.24-0.86) x10^3/uL Absolute Nucleated RBC 0.00 (0.00-0.012) x10^3u/L Lymphocytes % 5.2 L (19.3-51.7) % Monocytes % 6.3 (4.7-12.5) % Eosinophils % 0.0 L (0.7-5.8) % Basophils % 0.1 (0.1-1.2) % Absolute Granulocytes 8.07 H (1.56-6.13) x10^3/uL Basophils # 0.01 (0.01-0.08) x10^3/uL Sodium 137 (135-145) mmol/L Potassium 4.7 (3.5-5.1) mmol/L Chloride 96 L (98-107) mmol/L Carbon Dioxide 37 H (22-30) mmol/L Anion Gap 8.6 (5-15) MEQ/L BUN 17 (7-17) mg/dL Creatinine 0.72 (0.52-1.04) mg/dL Estimated GFR 88.8 ML/MIN Glucose 170 H (74-106) mg/dL Calcium 9.4 (8.4-10.2) mg/dL Magnesium 2.3 (1.6-2.3) mg/dL Total Bilirubin 0.10 L (0.2-1.3) mg/dL AST 34 (14-36) U/L ALT 26 (0-35) U/L Alkaline Phosphatase 123 (38-126) U/L NT-Pro-B Natriuret Pep 1160 (<300) pg/mL Serum Total Protein 6.9 (6.3-8.2) g/dL Albumin 3.8 (3.5-5.0) g/dL Slides for Path Review YES Radiology Exams: Radiology Procedures Category Date Time Status CHEST WITH CONTRAST [CT] Stat Exams 01/01/25 11:33 Completed VENOUS UNILAT/LIMITED EXTREMIT [US] Stat Exams 01/01/25 11:33 Completed Medications: Medications Generic Name Dose Route Start Last Admin Trade Name Freq PRN Reason Stop Dose Admin Acetaminophen 325 mg 12/29/24 20:38 12/29/24 21:59 Acetaminophen 325 Mg Tablet PO 01/28/25 20:37 325 mg Q4H PRN PRN Administration PAIN, FEVER, HEADACHE Albuterol Sulfate 4 puff 12/29/24 19:01 Albuterol Common Canister Inhaler 01/28/25 19:00 Q4H PRN PRN SHORTNESS OF BREATH/WHEEZING Albuterol Sulfate 2.5 mg 12/30/24 10:51 12/30/24 11:12 Albuterol Sulfate 2.5 Mg/3 Ml Neb 01/29/25 10:50 2.5 mg Q4H PRN PRN Administration SHORTNESS OF BREATH/WHEEZING Albuterol/Ipratropium 3 ml 12/29/24 19:00 01/02/25 06:54 Ipratropium/Albuterol Sulfate 3 Ml Ampul.Neb 01/28/25 18:59 3 ml Q6HRT LORRIE Administration Amlodipine Besylate 5 mg 12/30/24 10:00 01/02/25 09:49 Amlodipine Besylate 5 Mg Tablet PO 01/29/25 09:59 5 mg DAILY LORRIE Administration Aspirin 81 mg 12/30/24 10:00 01/02/25 09:49 Aspirin 81 Mg Tablet.Ec PO 01/29/25 09:59 81 mg DAILY LORRIE Administration Budesonide 0.5 mg 01/01/25 19:00 01/02/25 06:57 Budesonide 0.5 Mg/2 Ml Ampul.Neb. 01/31/25 18:59 0.5 mg BIDRT LORRIE Administration Calcium Carbonate 1 tab 12/30/24 10:00 01/02/25 09:49 Calcium Carbonate 500 Mg/Vitamin D 1 Tab Tablet PO 01/29/25 09:59 1 tab DAILY LORRIE Administration Methylprednisolone Sodium 0 mg 12/30/24 22:00 01/02/25 09:48 Succinate 40 mg/ Sterile Water IV 01/29/25 21:59 1 mg 1 ml Q12HT LORRIE Administration Famotidine 20 mg 12/30/24 10:00 01/01/25 09:12 Famotidine 20 Mg Tablet PO 01/29/25 09:59 20 mg DAILY LORRIE Administration Furosemide 40 mg 01/02/25 10:00 01/02/25 09:48 Furosemide 40 Mg/4 Ml Vial IV 02/01/25 09:59 40 mg DAILY LORRIE Administration Guaifenesin 600 mg 01/02/25 10:00 Guaifenesin 600 Mg Tablet Er PO 02/01/25 09:59 BID LORRIE Guaifenesin/Dextromethorphan 10 ml 12/31/24 14:29 01/02/25 09:52 Guaifenesin/D-Methorphan Hb 118 Ml Syrup PO 01/30/25 14:28 10 ml Q4H PRN PRN Administration COUGH Heparin Sodium (Beef Lung) 5,000 unit 12/29/24 22:00 01/02/25 09:49 Heparin 5000 Units/0.5 Ml 5,000 Unit/0.5 Ml Syr SQ 01/28/25 21:59 5,000 unit BID LORRIE Administration Ceftriaxone Sodium 1 gm in 100 mls @ 200 mls/hr 12/30/24 10:00 01/02/25 09:51 Rocephin 1 Gm / 100 Ml Nacl IV 01/29/25 09:59 200 mls/hr Q24H10 LORRIE Administration Magnesium Oxide 400 mg 12/29/24 22:00 01/02/25 09:49 Magnesium Oxide 400 Mg Tablet PO 01/28/25 21:59 400 mg BID LORRIE Administration Metoprolol Tartrate 50 mg 12/29/24 22:00 01/02/25 09:49 Metoprolol Tartrate 50 Mg Tablet PO 01/28/25 21:59 50 mg BID LORRIE Administration Nicotine 14 mg 12/29/24 20:45 01/01/25 21:20 Nicotine 14 Mg/Patch Patch TOP 01/28/25 20:44 14 mg Q24H LORRIE Administration Ondansetron HCl 4 mg 12/31/24 12:50 12/31/24 12:57 Zofran 4 Mg/Udtablet Orally Disintegrating PO 01/30/25 12:49 4 mg Q6H PRN PRN Administration NAUSEA/VOMITING Pantoprazole Sodium 40 mg 01/01/25 17:00 01/02/25 09:49 Protonix (Pantoprazole) 40 Mg Tablet PO 01/31/25 16:59 40 mg DAILY LORRIE Administration Simvastatin 10 mg 12/29/24 22:00 01/01/25 21:20 Simvastatin 10 Mg Tablet PO 01/28/25 21:59 10 mg HS LORRIE Administration Discontinued Medications Generic Name Dose Route Start Last Admin Trade Name Freq PRN Reason Stop Dose Admin Albuterol/Ipratropium Confirm 12/29/24 15:32 Ipratropium/Albuterol Sulfate 3 Ml Ampul.Neb Administered 12/29/24 15:33 Dose 3 ml IH .STK-MED ONE Albuterol/Ipratropium 3 ml 12/29/24 15:43 12/29/24 15:40 Ipratropium/Albuterol Sulfate 3 Ml Ampul.Neb IH 12/29/24 15:44 3 ml STAT ONE Administration Azithromycin Confirm 12/30/24 09:09 Azithromycin Inj Administered 12/30/24 09:10 Dose 500 mg IV .STK-MED ONE Azithromycin Confirm 12/31/24 09:03 Azithromycin Inj Administered 12/31/24 09:04 Dose 500 mg IV .STK-MED ONE Azithromycin Confirm 01/01/25 09:09 Azithromycin Inj Administered 01/01/25 09:10 Dose 500 mg IV .STK-MED ONE Budesonide 0.5 mg 01/01/25 09:25 Budesonide 0.5 Mg/2 Ml Ampul.Neb. IH 01/31/25 09:24 BID PRN PRN SHORTNESS OF BREATH/WHEEZING Methylprednisolone Sodium 0 mg 12/29/24 16:49 12/29/24 17:06 Succinate 125 mg/ Sterile IV 12/29/24 16:50 125 mg Water 2 ml STAT ONE Administration Diphenhydramine HCl 25 mg 12/29/24 21:55 12/29/24 21:59 Diphenhydramine Hcl 25 Mg Capsule PO 12/29/24 21:56 25 mg ONCE ONE Administration Furosemide 40 mg 01/01/25 13:19 01/01/25 13:35 Furosemide 40 Mg/4 Ml Vial IV 01/01/25 13:20 40 mg STAT ONE Administration Furosemide 10 mg 01/02/25 10:00 Furosemide 20 Mg Tablet PO 02/01/25 09:59 DAILY LORRIE Sodium Chloride 1,000 mls @ 50 mls/hr 12/29/24 21:00 12/29/24 21:38 Sodium Chloride 0.9% 1000 Ml IV 01/28/25 20:59 50 mls/hr .Q20H LORRIE Administration Azithromycin 500 mg/ Sodium 250 mls @ 250 mls/hr 12/30/24 10:00 01/01/25 10:04 Chloride IV 01/29/25 09:59 250 mls/hr Q24H10 LORRIE Administration Sodium Chloride Confirm 12/30/24 09:09 Sodium Chloride 0.9% 250 Ml Administered 12/30/24 09:10 Dose 250 mls @ ud IV .STK-MED ONE Sodium Chloride Confirm 12/31/24 09:03 Sodium Chloride 0.9% 250 Ml Administered 12/31/24 09:04 Dose 250 mls @ ud IV .STK-MED ONE Sodium Chloride Confirm 01/01/25 09:09 Sodium Chloride 0.9% 250 Ml Administered 01/01/25 09:10 Dose 250 mls @ ud IV .STK-MED ONE Methylprednisolone Sodium Succinate Confirm 12/29/24 17:02 Methylprednis Sod Succ 125 Mg/2 Ml Vial Administered 12/29/24 17:03 Dose 125 mg .ROUTE .STK-MED ONE Methylprednisolone Sodium Succinate Confirm 12/30/24 21:29 Methylprednisolone Sod Suc 40m 40 Mg/Ml Vial Administered 12/30/24 21:30 Dose 40 mg .ROUTE .STK-MED ONE Methylprednisolone Sodium Succinate Confirm 12/31/24 09:01 Methylprednisolone Sod Suc 40m 40 Mg/Ml Vial Administered 12/31/24 09:02 Dose 40 mg .ROUTE .STK-MED ONE Methylprednisolone Sodium Succinate Confirm 12/31/24 20:44 Methylprednisolone Sod Suc 40m 40 Mg/Ml Vial Administered 12/31/24 20:45 Dose 40 mg .ROUTE .STK-MED ONE Methylprednisolone Sodium Succinate Confirm 01/01/25 09:08 Methylprednisolone Sod Suc 40m 40 Mg/Ml Vial Administered 01/01/25 09:09 Dose 40 mg .ROUTE .STK-MED ONE Methylprednisolone Sodium Succinate Confirm 01/01/25 21:07 Methylprednisolone Sod Suc 40m 40 Mg/Ml Vial Administered 01/01/25 21:08 Dose 40 mg .ROUTE .STK-MED ONE Non-Formulary Medication 10 mg 12/29/24 22:00 Atorvastatin Calcium PO 01/28/25 21:59 HS LORRIE Prednisone 40 mg 12/30/24 10:00 12/30/24 09:12 Prednisone 20 Mg Tablet PO 01/29/25 09:59 40 mg DAILY LORRIE Administration Sterile Water Confirm 12/29/24 17:02 Water For Injection,Sterile 10 Ml Vial Administered 12/29/24 17:03 Dose 10 ml IJ .STK-MED ONE Sterile Water Confirm 12/30/24 21:29 Water For Injection,Sterile 10 Ml Vial Administered 12/30/24 21:30 Dose 10 ml IJ .STK-MED ONE Sterile Water Confirm 12/31/24 09:01 Water For Injection,Sterile 10 Ml Vial Administered 12/31/24 09:02 Dose 10 ml IJ .STK-MED ONE Sterile Water Confirm 12/31/24 20:44 Water For Injection,Sterile 10 Ml Vial Administered 12/31/24 20:45 Dose 10 ml IJ .STK-MED ONE Sterile Water Confirm 01/01/25 09:08 Water For Injection,Sterile 10 Ml Vial Administered 01/01/25 09:09 Dose 10 ml IJ .STK-MED ONE Sterile Water Confirm 01/01/25 21:07 Water For Injection,Sterile 10 Ml Vial Administered 01/01/25 21:08 Dose 10 ml IJ .STK-MED ONE Assessment/Plan (1) Acute respiratory failure with hypoxia Current Visit: No Status: Acute Assessment & Plan: -Secondary to COPD exacerbation -CXR without infiltrate; mild leukocytosis; clinical bronchospasm and hypoxia. -Continue systemic steroids (methylprednisolone - transitioned to prednisone 40mg daily). -Scheduled DuoNebs; PRN albuterol. -Azithromycin added -Oxygen to target SpO2 89-92%; wean as tolerated 2L prn at baseline currently at 3L -ABG prn if increasing work of breathing; lethary, confusion -Flutter, IS -D-dimer elevated at 2.01 -CTA chest ordered and pending 12/31: - CTA chest was performed, showing no pulmonary embolism but revealing patchy interstitial and alveolar opacities in the left upper lobe and lingula with a small pleural effusion, consistent with pneumonia or pneumonitis. Additionally, there was a subpleural triangular opacity in the left lower lobe favored to represent subsegmental atelectasis, though malignancy could not be fully excluded. -Outpatient pulmonology follow-up and repeat imaging were recommended for reassessment of LLL -WBC reviewed with slight elevation with solumedrol on board at 11.3 -Continue ceftriaxone/azithromycin -Continue solumedrol -Supplemental oxygen with goal spo2 > 90%- currently at 3L -Flutter/IS -Nebs/INH 01/01: -Patient with acute dyspnea this morning and a significant increase in oxygen requirements from 3 L to 6 L/min, indicating clinical worsening. -Repeat CT chest ordered today to reassess progression of pulmonary findings given deterioration in respiratory status. -Continue IV methylprednisolone -Continue scheduled DuoNebs q46h and PRN albuterol for symptomatic relief. -Supplemental oxygen targeting SpO2 8892%; monitor closely for further escalation of [id number]. -Evaluate for need of NIV/BiPAP if increased work of breathing, hypercapnia, or worsening hypoxemia develops. -Continue incentive spirometry, flutter valve -Qualifies for home oxygen; anticipate discharge planning to include home O2 set-up once stable - patient states she will not use oxygen at all times due to work- discussed risks - patient reports she will try portable 01/02: -Continue IV Solu-Medrol; consider transition to PO prednisone once respiratory status stabilizes. -Continue scheduled DuoNebs and PRN albuterol. -Continue inhaled budesonide. -Add Mucinex 600 mg BID for secretion mobilization. -Reinforce pulmonary hygiene (flutter valve, IS, chest physiotherapy). -Maintain oxygen at 3 L/min NC, titrate to SaO2 8992%. -Monitor for increased work of breathing or need for escalation to BiPAP -CT chest from 01/01/25 showed no pulmonary embolism but demonstrated a new patchy interstitial and alveolar opacity in the left lower lobe consistent with developing pneumonia, along with a new small left pleural effusion and a tiny right effusion. Borderline cardiomegaly was noted, raising concern for early CHF or volume overload. Chronic findings included emphysema, old granulomatous disease, arteriosclerotic changes, a hiatal hernia, chronic bony changes, and a left renal cyst Code(s): J96.01 - ACUTE RESPIRATORY FAILURE WITH HYPOXIA Community-Acquired Pneumonia / Pneumonitis -(MARYANNE/Lingula Opacities on CT) -Continue ceftriaxone + azithromycin -Repeat CT chest today to evaluate interval change in MARYANNE/lingular opacities and small pleural effusion given clinical worsening. -WBC wnl -Supplemental oxygen with goal spo2 >89%- currently on 6L -Discussed imaging with Dr. Melendrez - Plan outpatient pulmonology follow-up and repeat interval imaging after discharge. 01/02: -Sputum culture with no predominant organism -WBC reviewed and WNL -Afebrile -CT Chest as stated above from 01/01 -continue ceftriaxone - azithromycin course completed -add mucinex -see ARF for complete plan Left Lower Lobe Subpleural Opacity (Atelectasis vs Less Likely Malignancy) -Repeat CT chest today due to increased dyspnea and oxygen requirements -Dr. Melendrez has reviewed imaging and recommends outpatient pulmonology evaluation for surveillance 01/02: -Repeat imaging as stated above- reported previously seen opacity not seen on repeat - most likely atelectasis per radiologist -Patient has follow up with Pulmology Right Upper Extremity Edema -Order venous Doppler of RUE to evaluate for thrombosis. -Assess for other causes such as IV infiltration, cellulitis, or catheter- related complications. -If DVT confirmed, initiate anticoagulation 01/02: -Venous doppler negative for RUE DVT (2) COPD exacerbation Current Visit: Yes Status: Acute Assessment & Plan: -see ARF above Code(s): J44.1 - CHRONIC OBSTRUCTIVE PULMONARY DISEASE W (ACUTE) EXACERBATION (3) Hypomagnesemia Current Visit: Yes Status: Acute Assessment & Plan: -Oral mag oxide started- continue -Repeat mag at 1.6 Code(s): E83.42 - HYPOMAGNESEMIA (4) Hyponatremia Current Visit: Yes Status: Acute Assessment & Plan: -Likely hypovolemic vs diuretic effect; monitor sodium daily -Sodium now improved to 130 -Continue gentle hydration IVF 12/31: -Sodium level at 135 -discontinue IVF 01/01: -resolved- sodium at 138 Code(s): E87.1 - HYPO-OSMOLALITY AND HYPONATREMIA (5) Leukocytosis Current Visit: Yes Status: Acute Qualifiers: Leukocytosis type: unspecified Qualified Code(s): D72.829 - Elevated white blood cell count, unspecified Assessment & Plan: -Mild; likely secondary to pneumonia- now wnl at 11.3 (with steroids) -Trend CBC -UA pending 01/01: -WBC reviewed at 10.9 01/02: -WBC wnl at 9.3 Code(s): D72.829 - ELEVATED WHITE BLOOD CELL COUNT, UNSPECIFIED (6) HLD (hyperlipidemia) Current Visit: No Status: Chronic Qualifiers: Hyperlipidemia type: unspecified Qualified Code(s): E78.5 - Hyperlipidemia, unspecified Assessment & Plan: -continue statin Code(s): E78.5 - HYPERLIPIDEMIA, UNSPECIFIED (7) HTN (hypertension) Current Visit: No Status: Chronic Qualifiers: Hypertension type: primary hypertension Qualified Code(s): I10 - Essential (primary) hypertension Assessment & Plan: -continue amlodipine VTE: Heparin PPI: Protonix Dispo: 1-2 days Plan of care time spent 40 mins Code(s): J96.01 - ACUTE RESPIRATORY FAILURE WITH HYPOXIA (2) Pneumonia Current Visit: Yes Status: Acute Code(s): J18.9 - PNEUMONIA, UNSPECIFIED ORGANISM (3) COPD exacerbation Current Visit: Yes Status: Acute Code(s): J44.1 - CHRONIC OBSTRUCTIVE PULMONARY DISEASE W (ACUTE) EXACERBATION (4) Hypomagnesemia Current Visit: Yes Status: Acute Code(s): E83.42 - HYPOMAGNESEMIA (5) Hyponatremia Current Visit: Yes Status: Acute Code(s): E87.1 - HYPO-OSMOLALITY AND HYPONATREMIA (6) Leukocytosis Current Visit: Yes Status: Acute Qualifiers: Leukocytosis type: unspecified Qualified Code(s): D72.829 - Elevated white blood cell count, unspecified Code(s): D72.829 - ELEVATED WHITE BLOOD CELL COUNT, UNSPECIFIED (7) HLD (hyperlipidemia) Current Visit: No Status: Chronic Qualifiers: Hyperlipidemia type: unspecified Qualified Code(s): E78.5 - Hyperlipidemia, unspecified Code(s): E78.5 - HYPERLIPIDEMIA, UNSPECIFIED (8) HTN (hypertension) Current Visit: No Status: Chronic Qualifiers: Hypertension type: primary hypertension Qualified Code(s): I10 - Essential (primary) hypertension Code(s): I10 - ESSENTIAL (PRIMARY) HYPERTENSION (9) Abnormal finding on imaging Current Visit: Yes Status: Acute Code(s): R93.89 - ABNORMAL FINDINGS ON DX IMAGING OF OTH BODY STRUCTURES (10) Pneumonia Current Visit: Yes Status: Acute Code(s): J18.9 - PNEUMONIA, UNSPECIFIED ORGANISM
[2025-01-02] MEDS: Mucinex 600MG ER Tabs PO SCH (11:12)
[2025-01-03 07:55] LABS: BASOPHIL % 0.2 % (0.1-1.2); Basophil (Absolute #) 0.02 x10^3/uL (0.01-0.08); Eosinophil (Absolute #) 0 x10^3/uL (0.04-0.36); Hematocrit 40.6 % (34.1-44.9); Hemoglobin 12.7 g/dL (11.2-15.7); IMMATURE GRAN # 0.26 x10^3u/L (0.001-0.031); IMMATURE GRAN % 2.5 % (0.001-0.429); Lymphocyte (Absolute #) 0.90 x10^3/uL (1.18-3.74); Mean Corpuscular Hemoglobin 31.1 pg (25.6-32.2); Mean Corpuscular Hgb Concent. 31.3 g/dL (32.2-35.5); Monocyte (Absolute #) 0.54 x10^3/uL (0.24-0.86); NUCLEATED RBC # 0.00 x10^3u/L (0.00-0.012); NUCLEATED RBC % 0.0 % (0.00-0.2); Platelet Count 423 x10^3/uL (182-369); Red Blood Count 4.09 x10^6/uL (3.93-5.22); White Blood Count 10.3 x10^3/uL (3.98-10.04)
[2025-01-03 08:08] LABS: Calcium 9.5 mg/dL (8.4-10.2); Carbon Dioxide 37.0 mmol/L (22-30); Creatinine 1 0.69 mg/dL (0.52-1.04); EST GLOMERULAR FILTRATION RATE 92.2 ML/MIN; Glucose 172.0 mg/dL (74-106); Potassium 4.8 mmol/L (3.5-5.1); SGOT/AST 28.0 U/L (14-36); SGPT/ALT 27.0 U/L (0-35); Total Protein 7.2 g/dL (6.3-8.2)
--- NOTE | 2025-01-03 10:18 | PCM.DS ---
Discharge Summary Date of Admission: 12/30/24 09:07 Date of Discharge: 01/03/25 Admitting Physician: TERI YAALA MD Primary Care Provider: LIZETH CRUZ Allergies Allergies cat dander Allergy (Severe, Verified 08/05/24 21:05) Shortness of Breath perfume Adverse Reaction (Intermediate, Verified 08/05/24 21:05) Shortness of Breath Hospital Summary - Hospital Course Hospital Course: Ms. Buck is a 74 with COPD, hypertension, hyperlipidemia, and arrhythmia was admitted for worsening dyspnea and productive cough unrelieved by home nebulizers. She arrived tachypneic and hypoxic, improving from 86% on room air to the mid-90s on 2 L nasal cannula. Her initial chest X-ray showed chronic hyperinflation without acute infiltrate, but labs revealed mild leukocytosis, hyponatremia, and hypomagnesemia, all of which were corrected during her stay. Because of an elevated D-dimer, a CTA chest was performed and ruled out pulmonary embolism. It did show patchy interstitial and alveolar opacities in the left upper lobe and lingula with a small pleural effusion, along with a triangular subpleural opacity in the left lower lobe initially favored to represent atelectasis. She was treated for a COPD exacerbation with superimposed pneumonia using systemic steroids, scheduled nebulized bronchodilators, PRN albuterol, and ceftriaxone plus azithromycin. Sputum was thick and green early in the course, consistent with infectious and inflammatory airway burden. As treatment continued, her symptoms gradually improved, though she required supplemental oxygen above her baseline. A repeat CT later in the hospitalization demonstrated a new [id number] pneumonia and small bilateral pleural effusions, but again no pulmonary embolism. The previously concerning subpleural opacity was no longer visible, consistent with resolved atelectasis rather than malignancy. Venous Doppler of the right upper extremityobtained for new localized swellingwas negative for DVT. By discharge, electrolytes corrected, and she remained afebrile with improved work of breathing. She was maintaining stable saturations on 23 L/min nasal cannula, her cough had significantly improved, and she felt well enough to go home. Home oxygen was arranged. She has a nebulizer at home and feels comfortable with her pulmonary regimen. Outpatient pulmonology follow-up is already scheduled for next week, including repeat imaging recommendations. The patient is medically stable for discharge with clear instructions and improving respiratory status. Will discharge home on cefuroxime 500mg bid x 7 days and prednisone 20mg bid x 5 days. Discharge Note New Diagnosis: Pneumonia/COPD exacerbation New Medications: Cefuroxime/prednisone/protonix Follow Up: Pulmonology next week/PCP I spent 35 minutes [id number] with the patient on the day of discharge performing discharge exam, discussing hospital stay and discharge instructions with patient and caregivers, preparation of discharge records, prescriptions & referral forms and addressing any questions/concerns the patient had as documented above. - Vitals & Intake/Output Vital Signs: Vital Signs Temperature 97.8 F 01/03/25 07:37 Pulse Rate 83 01/03/25 07:37 Respiratory Rate 24 01/03/25 07:37 Blood Pressure 142/71 01/03/25 07:37 O2 Sat by Pulse Oximetry 93 L 01/03/25 07:37 Intake & Output: Intake & Output 12/31/24 01/01/25 01/02/25 01/03/25 11:59 11:59 11:59 11:59 Intake Total 1140 0291 175 2222 Output Total 3225 1700 Balance 1140 1154 -2359 -100 Weight 59.8 kg - Lab Result Diagrams: 01/03/25 07:50 01/03/25 07:50 Lab Results-Last 24 Hrs: Lab Results-Last 24 Hours 01/03/25 01/03/25 Range/Units 07:50 07:50 WBC 10.3 H (3.98-10.04) x10^3/uL RBC 4.09 (3.93-5.22) x10^6/uL Hgb 12.7 (11.2-15.7) g/dL Hct 40.6 (34.1-44.9) % MCV 99.3 H (79.4-94.8) fL MCH 31.1 (25.6-32.2) pg MCHC 31.3 L (32.2-35.5) g/dL RDW 13.9 (11.7-14.4) % Plt Count 423 H (182-369) x10^3/uL MPV 8.5 L (9.4-12.3) fL Gran % 83.4 H (34.0-71.1) % Immature Gran % (Auto) 2.5 H (0.001-0.429) % Nucleat RBC Rel Count 0.0 (0.00-0.2) % Eos # (Auto) 0 L (0.04-0.36) x10^3/uL Immature Gran # (Auto) 0.26 H (0.001-0.031) x10^3u/L Absolute Lymphs (auto) 0.90 L (1.18-3.74) x10^3/uL Absolute Monos (auto) 0.54 (0.24-0.86) x10^3/uL Absolute Nucleated RBC 0.00 (0.00-0.012) x10^3u/L Lymphocytes % 8.7 L (19.3-51.7) % Monocytes % 5.2 (4.7-12.5) % Eosinophils % 0.0 L (0.7-5.8) % Basophils % 0.2 (0.1-1.2) % Absolute Granulocytes 8.59 H (1.56-6.13) x10^3/uL Basophils # 0.02 (0.01-0.08) x10^3/uL Sodium 135 (135-145) mmol/L Potassium 4.8 (3.5-5.1) mmol/L Chloride 93 L (98-107) mmol/L Carbon Dioxide 37 H (22-30) mmol/L Anion Gap 10.0 (5-15) MEQ/L BUN 19 H (7-17) mg/dL Creatinine 0.69 (0.52-1.04) mg/dL Estimated GFR 92.2 ML/MIN Glucose 172 H (74-106) mg/dL Calcium 9.5 (8.4-10.2) mg/dL Total Bilirubin 0.30 (0.2-1.3) mg/dL AST 28 (14-36) U/L ALT 27 (0-35) U/L Alkaline Phosphatase 124 (38-126) U/L Serum Total Protein 7.2 (6.3-8.2) g/dL Albumin 4.1 (3.5-5.0) g/dL Micro Results-Entire Visit: Microbiology 12/30/24 12:00 Gram Stain - Final Sputum - Expectorant Sputum Culture - Final ORGANISMS ISOLATED ARE CONSISTENT WITH NORMAL RESP RENÉE MODERATE GROWTH, NO PREDOMINANT ORGANISM - Radiology Exams Ordered Rad Exams-Entire Visit: Radiology Procedures Category Date Time Status CHEST WITH CONTRAST [CT] Stat Exams 01/01/25 11:33 Completed VENOUS UNILAT/LIMITED EXTREMIT [US] Stat Exams 01/01/25 11:33 Completed - Procedures and Test Procedures and Tests throughout Hospitalization: Therapy Orders & Screens 12/29/24 15:43 Respiratory Therapy Assessment DAILY Comment: 12/29/24 18:51 RT Screen per Nursing Assess ONCE Comment: Protocol Order Physician Instructions: Greater than 3 points order RT Admission Screen Reason For Exam: Triggered on Admission Diagnosis: exacerbation of copd Diagnosis: exacerbation of copd Pneumonia: No Home O2: Yes Asthma: No CHF: No Home CPAP/BIPAP: No Home Nebs/MDI: Yes Total Points: 10 Smoking Cessation Education ONCE Comment: Diagnosis: exacerbation of copd Smoking Status: Current every day smoker How long have you smoked: 50yrs Have you smoked in the past 12 months: Yes Approximately how many cigarettes per day: 5 CIGS Do you dip or chew tobacco: No 12/29/24 18:52 Oxygen Nasal Cannula 2 lpm Comment: Diagnosis: exacerbation of copd 12/29/24 18:53 Respiratory Therapy Assessment DAILY Comment: Diagnosis: exacerbation of copd 12/29/24 20:38 Respiratory Therapy Consult ONCE Comment: Reason For Exam: Diagnosis: exacerbation of copd 12/30/24 08:15 Flutter Therapy UD Comment: Diagnosis: exacerbation of copd Incentive Spirometry UD Comment: Diagnosis: exacerbation of copd Discharge Exam General Appearance: no apparent distress Neurologic Exam: alert, oriented x 3, cooperative Eye Exam: PERRL Ears, Nose, Throat Exam: normal ENT inspection Neck Exam: normal inspection Respiratory Exam: diminished breath sounds Cardiovascular Exam: regular rate/rhythm, normal heart sounds Gastrointestinal/Abdomen Exam: soft, normal bowel sounds Pelvic Exam: deferred Rectal Exam: deferred Back Exam: normal inspection Extremity Exam: swelling (trace BLE) Skin Exam: normal color Final Diagnosis/Problem List - Final Discharge Diagnosis/Problem (1) Acute respiratory failure with hypoxia Current Visit: No Status: Acute Assessment & Plan: Improving; stable on 23 L Continue home oxygen 23 L/min to maintain SpO2> 89%. Prednisone 20 mg bic x 5 days /cefuroxime 500mg bid x 7 days Continue DuoNebs scheduled and albuterol PRN. Continue airway clearance: flutter valve, incentive spirometry, chest physiotherapy. Seek emergency care for worsening dyspnea, tachypnea, or inability to maintain saturation. Code(s): J96.01 - ACUTE RESPIRATORY FAILURE WITH HYPOXIA (2) Pneumonia Current Visit: Yes Status: Acute Assessment & Plan: Improving; afebrile; WBC improved Discharge on cefuroxime to complete antibiotic therapy. Continue prednisone taper as above. Continue Mucinex BID. Follow with pulmonology next week for reassessment of CT findings and ongoing oxygen needs. Repeat imaging outpatient as recommended. Code(s): J18.9 - PNEUMONIA, UNSPECIFIED ORGANISM (3) COPD exacerbation Current Visit: Yes Status: Acute Assessment & Plan: Improving Continue home nebulizer regimen: scheduled DuoNebs + albuterol PRN. Prednisone taper. Use home oxygen consistently even if symptoms fluctuate. Pulmonology follow-up as scheduled. Code(s): J44.1 - CHRONIC OBSTRUCTIVE PULMONARY DISEASE W (ACUTE) EXACERBATION (4) Hypomagnesemia Current Visit: Yes Status: Acute Assessment & Plan: Resolved Code(s): E83.42 - HYPOMAGNESEMIA (5) Hyponatremia Current Visit: Yes Status: Acute Assessment & Plan: Resolved Code(s): E87.1 - HYPO-OSMOLALITY AND HYPONATREMIA (6) Leukocytosis Current Visit: Yes Status: Acute Assessment & Plan: No further workup needed unless symptoms recur. Code(s): D72.829 - ELEVATED WHITE BLOOD CELL COUNT, UNSPECIFIED (7) HLD (hyperlipidemia) Current Visit: No Status: Chronic Assessment & Plan: -continue statin Code(s): E78.5 - HYPERLIPIDEMIA, UNSPECIFIED (8) HTN (hypertension) Current Visit: No Status: Chronic Assessment & Plan: -stable continue home meds Code(s): I10 - ESSENTIAL (PRIMARY) HYPERTENSION (9) Abnormal finding on imaging Current Visit: Yes Status: Acute Assessment & Plan: -No redemonstration on follow CT as stated above- Follow up with pulmonology as scheduled next week Code(s): R93.89 - ABNORMAL FINDINGS ON DX IMAGING OF OTH BODY STRUCTURES (10) Localized swelling of right upper extremity Current Visit: Yes Status: Acute Assessment & Plan: -Venous doppler negative for DVT- resolved swelling Code(s): R22.31 - LOCALIZED SWELLING, MASS AND LUMP, RIGHT UPPER LIMB (11) Smoker Current Visit: No Status: Chronic Assessment & Plan: -Advised cessation Code(s): F17.200 - NICOTINE DEPENDENCE, UNSPECIFIED, UNCOMPLICATED - Discharge Discharge Date: 01/03/25 Disposition: Home, Self-Care Condition: Stable Prescriptions: New cefuroxime axetiL [Cefuroxime] 500 mg PO BID 7 Days #14 tablet Prednisone 20 mg [Deltasone 20 mg] 20 mg PO BID 5 Days #10 tablet Guaifenesin 600 mg ER [Mucinex 600MG ER Tabs] 600 mg PO BID 7 Days #14 tablet PANTOPRAZOLE 40 mg Tablet [Protonix 40MG Tablet] 40 mg PO DAILY 14 Days #14 tablet Continue Alendronate Sodium 70 mg PO GRADY Amlodipine Besylate 5 mg PO DAILY Aspirin EC 81 mg [Ecotrin 81 mg] 81 mg PO DAILY Niacin 200 mg PO DAILY Atorvastatin Calcium [Lipitor] 10 mg PO HS Metoprolol Tartrate 50 mg [Lopressor 50 MG] 50 mg PO BID Albuterol Sulfate 1 neb IH Q6H PRN PRN PRN Reason: Shortness Of Breath Cyanocobalamin (Vitamin B-12) [Vitamin B12] 1,000 mcg PO DAILY Cholecalciferol (Vitamin D3) [Vitamin D3] 125 mcg PO SUMOWEFR Calcium Carbonate [Calcium] 600 mg PO DAILY Albuterol Sulfate [Albuterol Sulfate Hfa] 2 puff IH Q4HPRN PRN PRN Reason: Shortness Of Breath Furosemide 20 mg [Lasix 20 mg] 10 mg PO DAILY Discontinued Famotidine 20 mg [Pepcid 20 MG] 20 mg PO DAILY Instructions: COPD exacerbation - Discharge instructions Follow up with: KRISTIN JULIEN [ACTIVE STAFF, PULMONARY MEDICINE] - 01/07/25 2:00 pm LIZETH CRUZ [Primary Care Provider, INTERNAL MEDICINE] - 01/06/25 11:10 am
[2025-01-03 12:21] VITALS: BP 157/74; PULSE 88; RESP 18; TEMP 97.4; O2SAT 92
== END 2025-01-03 12:55 | disposition home or self-care (01) | DRG 189 ==
LOC: ED 15:25 → MED SURG 18:15 → OBSVTOIN 12-30 09:07
PROVIDERS: ADMIT Internal Medicine; ATTEND Internal Medicine
DX: J96.01 Acute respiratory failure with hypoxia (principal); J18.9 Pneumonia, unspecified organism; J44.1 Chronic obstructive pulmonary disease with (acute) exacerbation; E87.1 Hypo-osmolality and hyponatremia; E83.42 Hypomagnesemia; E78.5 Hyperlipidemia, unspecified; D72.829 Elevated white blood cell count, unspecified; I10 Essential (primary) hypertension; R22.31 Localized swelling, mass and lump, right upper limb; F17.200 Nicotine dependence, unspecified, uncomplicated; Z79.899 Other long term (current) drug therapy
CPT/HCPCS: 36415; 71045; 71260; 80053; 83735; 83880; 85025; 85379; 87070; 87637; 93005; 93041; 93268; 93306; 93971; 94640; 94667; 94668; 94760; 94762; 96374; 99285; G0378